=== PATIENT | female | born 1960 | race Caucasian/White ===

== ENCOUNTER 2016-06-11 15:56 | Inpatient (IN) ==
[2016-06-11 16:48] LABS: Basophils # 0.1 K/mcL (0.0-0.2); Basophils % 0.7 %; Eosinophils # 0.4 K/mcL (0.0-0.6); Eosinophils % 4.2 %; Hematocrit 39.7 % (35.3-44.9); Hemoglobin 13.4 g/dL (11.5-15.4); Immature Granulocytes % 0.3 % (0-4); Lymphocytes % 47.1 %; Mean Corpuscular HGB Conc 33.8 g/dL (31.6-35.5); Mean Corpuscular Hemoglobin 31.8 pg (28.0-33.3); Mean Corpuscular Volume 94.3 fL (83.0-100.0); Mean Platelet Volume 9.4 fL (9.4-12.4); Monocytes # 0.8 K/mcL (0.0-1.3); Monocytes % 7.1 %; Neutrophils # 4.3 K/mcL (1.6-8.9); Platelet Count 220 K/mcL (140-400); Red Blood Count 4.21 M/mcL (3.82-4.97); Red Cell Distribution Width 14.3 % (11.5-14.5); Segmented Neutrophils % 40.6 %
[2016-06-11 16:59] LABS: BUN/Creatinine Ratio 11 (6-26); Blood Urea Nitrogen 12 mg/dL (7-20); Calcium 9.5 mg/dL (8.6-10.8); Carbon Dioxide 26 mEq/L (19-29); Chloride 105 mEq/L (98-109); Glucose 82 mg/dL (70-99); Osmolality,Calculated 283 (280-300); Potassium 4.5 mEq/L (3.5-4.5); Sodium 137 mEq/L (136-145); eGFR For African Americans > 60 (> 60); eGFR For Non-African Americans 51 (> 60)
[2016-06-11] MEDS ORDERED: *HR* HYDROmorphone (PF) 1 MG/ML SYRINGE IVP ONE (17:01)
[2016-06-11] MEDS ORDERED: Ondansetron 4 MG/2 ML VIAL IVP ONE (17:01)
--- NOTE | 2016-06-11 17:01 | Emergency Department Note ---
Disposition Clinical Impression: Ischemia of left lower extremity Disposition: Admitted As Inpatient Condition: Good Time of Disposition: 18:00 Extremity Problem HPI - General Chief complaint: ED Extremity Problem,Nontraumatic Stated complaint: Left leg pain Time Seen by Provider: 06/11/16 16:27 Source: patient Limitations: no limitations Nursing Notes Reviewed: Yes Vital Signs Reviewed: Yes - History of Present Illness HPI Narrative: Patient is a 56-year-old female who presents to [facility] ED with a chief complaint of left lower extremity pain, weakness, numbness and now blue toes. States she has had a 3 day history of this worsening pain and numbness. States the toes just turned blue earlier today. She has had difficulty walking on her leg for last few days especially today. Past medical history significant for hypertension, COPD, renal disease, osteoarthritis, celiac disease. Patient states she has had some pain in her legs and was told she had decreased blood flow to her feet in the past. She was referred to a foot surgeon who told her to try orthotics. Pt Subjective Complaint: extremity pain, extremity swelling Onset (ago): day(s) Consistency: Worsening Injury Location: left, lower extremity Pain Scale: 10 Quality: aching Radiation: proximal Improves with: nothing Worsens with: range of motion, weight bearing, walking, palpation, rest Associated symptoms: Reports: change in appearance. Denies: chest pain, shortness of breath, abdominal pain, fever - Related Data Home Medications Medication Instructions Recorded Confirmed Albuterol Sulfate [Proair Hfa] 2 puff IH Q4-6H PRN 09/28/15 06/11/16 Acetaminophen/Diphenhydramine 2 each PO HS 06/11/16 06/11/16 [Acetaminophen Pm Caplet] Aclidinium [place] [Tudorza 400 mcg IH BID 06/11/16 06/11/16 Pressair] Budesonide/Formoterol 160/4.5 2 puff IH BIDR 06/11/16 06/11/16 [Symbicort 160/4.5] Calcium Carbonate/Vitamin D3 1 each PO BID 06/11/16 06/11/16 [Calcium 500-Vit D3 200 Tablet] Cholecalciferol (Vitamin D3) 5,000 unit PO DAILY 06/11/16 06/11/16 [Vitamin D3] Diclofenac Sodium [Voltaren] 1 appl TP QID PRN 06/11/16 06/11/16 Lisinopril 40 mg PO DAILY 06/11/16 06/11/16 Ranitidine HCl [Acid Fashion Intern] 150 mg PO BID 06/11/16 06/11/16 Varenicline Tartrate [Chantix] 1 mg PO BID 06/11/16 06/11/16 Previous Rx's Medication Instructions Recorded Aspirin [Lo-Dose Aspirin EC] 81 mg PO DAILY #30 tablet. 06/12/16 Clopidogrel Bisulfate [Plavix] 75 mg PO DAILY #30 tablet 06/12/16 Allergies Allergy/AdvReac Type Severity Reaction Status Date / Time acetaminophen [From [place]] AdvReac Nausea Verified 09/28/15 10:35 bupropion [From Wellbutrin] AdvReac Agitated Verified 09/28/15 10:35 hydrocodone [From [place]] AdvReac Nausea Verified 09/28/15 10:35 pregabalin [From Lyrica] AdvReac Nausea Verified 09/28/15 10:35 All systems ED: reviewed and negative except as stated. Past Medical History - Past Medical History Attestation: Yes The following information was validated with the patient. Source: patient Medical history: Reports: COPD, GERD, hypertension, renal disease, other Surgical history: Reports: hysterectomy, orthopedic, other Psychiatric history: Reports: no psych history [employer] history: Reports: bilateral tubal ligation - Social History Smoking Status: Current every day smoker Smokeless Tobacco Status: No Alcohol use: Reports: none Drug use: Reports: none Physical Exam - General Limitations: no limitations General appearance: alert - Head Head exam: atraumatic, normocephalic, normal inspection - Eye Eye exam: Present: normal appearance, PERRL, EOMI - ENT ENT exam: normal exam, normal oropharynx, mucous membranes moist - Neck Neck exam: Present: normal inspection, full ROM, trachea midline - Chest Chest inspection: Present: normal inspection, symmetric chest wall rise - Respiratory Respiratory exam: Present: normal lung sounds bilaterally - Cardiovascular Cardiovascular exam: Present: regular rate, normal rhythm, normal heart sounds - Abdominal Exam Abdominal exam: Present: soft, Non-Tender. Absent: tenderness, distention, guarding, rebound, rigidity - Expanded Lower Extremity Exam Hip/Pelvis exam: Present: tenderness Upper leg exam: Present: tenderness Lower leg exam: Present: tenderness Ankle exam: Present: tenderness Foot/toe exam: Present: tenderness, ecchymosis (1, 2, 3 digits) Gait: unable to bear weight - Back Exam Back exam: Present: normal inspection, full ROM. Absent: tenderness - Neurological Exam Neurological exam: Present: alert, oriented X3, CN II-XII intact - Psychiatric Psychiatric exam: Present: normal affect, normal mood - Skin Skin exam: Present: warm, dry, intact, normal color Course Course Narrative: Patient seen and examined. Left lower extremity pain that started 3 days ago. Noticed the blackness in her toes today. Denies any history of atrial fibrillation or prior blood clots. I am concerned about an ischemic foot. We will get ABIs. Patient only has one kidney so we will hold off on CTA of the leg. We will touch base with vascular surgery. Peripheral IV, 1 mg IV Dilaudid , [address] of the head also ordered to rule out any intracranial pathology to cause her left leg weakness. - Reevaluation(s) Reevaluation #1: CT and lab work unremarkable. SANDRO results showed decreased left (0.6) versus right. I spoke with vascular surgery Dr. Chakraborty who would like patient placed on a heparin drip. States order her some Mucomyst and will have her get a CTA of the left leg tomorrow morning. These have been ordered. Patient accepted by Dr. Chakraborty to the vascular surgery service. Time: 19:55 Vital Signs Temperature 97.5 F L 06/11/16 16:02 Pulse Rate 78 06/11/16 16:02 Respiratory Rate 16 06/11/16 16:02 Blood Pressure 157/86 06/11/16 16:02 O2 Sat by Pulse Oximetry 97 06/11/16 16:02 Temperature 97.8 F 06/12/16 11:10 Pulse Rate 78 06/12/16 11:10 Respiratory Rate 16 06/12/16 11:10 Blood Pressure 117/95 06/12/16 11:10 O2 Sat by Pulse Oximetry 94 L 06/12/16 11:10 Oxygen Delivery Oxygen Delivery Nasal Cannula Extremity Problem, Nontraumati - Medical Records Medical records reviewed: Yes I reviewed the patient's medical records. - Lab Data Lab results reviewed: Yes I reviewed the patient's lab results. Result diagrams: 06/12/16 01:21 03/14/17 16:40 Lab Results 06/11/16 06/11/16 06/11/16 Range/Units 16:40 16:40 16:40 WBC 10.6 (4.3-11.1) K/mcL RBC 4.21 (3.82-4.97) M/mcL Hgb 13.4 (11.5-15.4) g/dL Hct 39.7 (35.3-44.9) % MCV 94.3 (83.0-100.0) fL MCH 31.8 (28.0-33.3) pg MCHC 33.8 (31.6-35.5) g/dL RDW 14.3 (11.5-14.5) % Plt Count 220 (140-400) K/mcL MPV 9.4 (9.4-12.4) fL Immature Gran % 0.3 (0-4) % Seg Neutrophils % 40.6 % Lymphocytes % 47.1 % Monocytes % 7.1 % Eosinophils % 4.2 % Basophils % 0.7 % Neutrophils # 4.3 (1.6-8.9) K/mcL Lymphocytes # 5.0 H (0.6-4.6) K/mcL Monocytes # 0.8 (0.0-1.3) K/mcL Eosinophils # 0.4 (0.0-0.6) K/mcL Basophils # 0.1 (0.0-0.2) K/mcL PT (9.4-12.1) Seconds INR APTT (26.0-36.0) Seconds Sodium 137 (136-145) mEq/L Potassium 4.5 (3.5-4.5) mEq/L Chloride 105 (98-109) mEq/L Carbon Dioxide 26 (19-29) mEq/L BUN 12 (7-20) mg/dL Creatinine 1.11 (0.57-1.11) mg/dL Est GFR ( Amer) > 60 (> 60) Est GFR (Non-Af Amer) 51 L (> 60) BUN/Creatinine Ratio 11 (6-26) Glucose 82 (70-99) mg/dL Calculated Osmolality 283 (280-300) Lactic Acid 0.9 (0.5-2.2) mmol/L Calcium 9.5 (8.6-10.8) mg/dL Creatine Kinase (29-168) Units/L 06/11/16 06/11/16 Range/Units 16:40 16:40 WBC (4.3-11.1) K/mcL RBC (3.82-4.97) M/mcL Hgb (11.5-15.4) g/dL Hct (35.3-44.9) % MCV (83.0-100.0) fL MCH (28.0-33.3) pg MCHC (31.6-35.5) g/dL RDW (11.5-14.5) % Plt Count (140-400) K/mcL MPV (9.4-12.4) fL Immature Gran % (0-4) % Seg Neutrophils % % Lymphocytes % % Monocytes % % Eosinophils % % Basophils % % Neutrophils # (1.6-8.9) K/mcL Lymphocytes # (0.6-4.6) K/mcL Monocytes # (0.0-1.3) K/mcL Eosinophils # (0.0-0.6) K/mcL Basophils # (0.0-0.2) K/mcL PT 10.1 (9.4-12.1) Seconds INR 0.9 APTT 35.5 (26.0-36.0) Seconds Sodium (136-145) mEq/L Potassium (3.5-4.5) mEq/L Chloride (98-109) mEq/L Carbon Dioxide (19-29) mEq/L BUN (7-20) mg/dL Creatinine (0.57-1.11) mg/dL Est GFR ( Amer) (> 60) Est GFR (Non-Af Amer) (> 60) BUN/Creatinine Ratio (6-26) Glucose (70-99) mg/dL Calculated Osmolality (280-300) Lactic Acid (0.5-2.2) mmol/L Calcium (8.6-10.8) mg/dL Creatine Kinase 51 (29-168) Units/L - Radiology Data Radiology results reviewed: Yes I reviewed the patient's radiology results. Head CT 06/11/16 17:35 IMPRESSION: 1. No gross evidence of acute intracranial abnormality. 2. Mild scattered atherosclerosis. D/ / Riley Lugo MD / Riley Lugo MD Interpreting Provider: Riley Lugo MD Attestation Statement - Attestation Attestation: I examined this patient and my medical decision-making was reviewed with the SU[employer]OR [employer]MENT/PA/Advanced Practice Nurse/Resident Physician. I agree with the documented findings, disposition and treatment plan as described except to the extent set forth below. 56 yo female presents with L leg pain. Pt states she has a long history of pain in L lower extremity and is unable to ambulate without significant pain in the leg which improves with rest. Pt states three days ago she developed acute worsening of the pain. She reports he foot and LLE were cold, extremely painful , turned colors. Now she reports she has lost strength in the LLE and is unable to ambulate. Today she noted the toes of her L foot have turned colors. Pt has a single kidney. SANDRO performed bilaterally which did not reveal evidence of a significant difference bilaterally. Vascular surgeon, Dr. Chakraborty, contacted by resident who recommended placing patient on heparin, hydrating, and planning for CTA in the AM.
[2016-06-11] MEDS ORDERED: *HR* Heparin 5,000 UNIT/ML VIAL IVP PRN ×2 (18:01)
[2016-06-11] MEDS ORDERED: *HR* Heparin 5,000 UNIT/ML VIAL IVP ONE (18:01)
[2016-06-11 18:22] LABS: INR 0.9; Prothrombin Time 10.1 Seconds (9.4-12.1)
[2016-06-11 18:25] LABS: Activated Partial Thrombo Time 35.5 Seconds (26.0-36.0)
[2016-06-11] MEDS: Heparin 25,000 UNIT/500 ML D5W 25,000 UNIT/500 ML MLS IVC SCH (18:30)
[2016-06-11] MEDS ORDERED: *HR* Acetylcysteine 20% 600 MG/3 ML ORAL SYRINGE PO SCH (21:00)
[2016-06-11] MEDS: *HR* OxyCODONE/APAP 10/325 TABLET PO PRN (21:57)
[2016-06-11] MEDS: Famotidine 20 MG TABLET PO SCH (21:57)
[2016-06-11] MEDS: 0.9 % Sodium Chloride 1,000 ML IVC SCH (21:58)
[2016-06-11] MEDS: Ipratropium/Albuterol Neb 3 ML IH SCH (22:51)
[2016-06-11] MEDS: *HR* Acetylcysteine 20% 600 MG/3 ML ORAL SYRINGE PO SCH (23:17)
[2016-06-11] MEDS: *HR* HYDROmorphone (PF) 1 MG/ML SYRINGE IVP PRN (23:17)
[2016-06-12 01:53] LABS: Basophils # 0.1 K/mcL (0.0-0.2); Basophils % 0.7 %; Eosinophils # 0.5 K/mcL (0.0-0.6); Eosinophils % 4.2 %; Hematocrit 40.7 % (35.3-44.9); Hemoglobin 12.9 g/dL (11.5-15.4); Immature Granulocytes % 0.2 % (0-4); Lymphocytes # 5.6 K/mcL (0.6-4.6); Lymphocytes % 50.5 %; Mean Corpuscular HGB Conc 31.7 g/dL (31.6-35.5); Mean Corpuscular Hemoglobin 30.4 pg (28.0-33.3); Mean Corpuscular Volume 95.8 fL (83.0-100.0); Mean Platelet Volume 9.5 fL (9.4-12.4); Monocytes # 0.9 K/mcL (0.0-1.3); Monocytes % 7.9 %; Platelet Count 207 K/mcL (140-400); Red Blood Count 4.25 M/mcL (3.82-4.97); Red Cell Distribution Width 14.4 % (11.5-14.5); Segmented Neutrophils % 36.5 %
[2016-06-12] MEDS: Ipratropium/Albuterol Neb 3 ML IH SCH ×2 (03:45→10:10)
[2016-06-12] MEDS: *HR* HYDROmorphone (PF) 1 MG/ML SYRINGE IVP PRN ×2 (03:54→06:53)
[2016-06-12] MEDS: *HR* OxyCODONE/APAP 10/325 TABLET PO PRN (03:57)
[2016-06-12] MEDS: Famotidine 20 MG TABLET PO SCH (07:38)
[2016-06-12] MEDS ORDERED: Lisinopril 20 MG TABLET PO SCH (09:00)
--- NOTE | 2016-06-12 09:06 | Electrocardiograph Report ---
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
[2016-06-12] MEDS ORDERED: Ondansetron 4 MG/2 ML VIAL IVP PRN (09:42)
[2016-06-12] MEDS: *HR* Acetylcysteine 20% 600 MG/3 ML ORAL SYRINGE PO SCH (09:53)
--- NOTE | 2016-06-12 10:27 | General Surg History&Physical ---
Date of Encounter: 06/12/16 Time of Encounter: 10:27 Assessment and Plan (1) Ischemia of left lower extremity Current Visit: Yes Status: Acute The assessment and plan as outlined above was discussed with the patient and/or family members who expressed understanding and agreement. All questions were answered. Etiology unclear at this time. Acute color change of toes of left foot -- purple in color -- with increased pain/tingling/numbness 2+ year history of left leg pain. Possible embolic event vs. small vessel disease vs other etiology CTA Aorta w/runoff: pending Will pre-treat with mucomyst as she has a solitary kidney Therapeutic heparin drip IVF NS @ 75ml/hr anti-emetics Pain control w/ oxycodone 10mg PRN q6h GI prophylaxis w/ famotidine (2) CKD (chronic kidney disease), stage III Current Visit: Yes Status: Acute History of CKD. Solitary Kidney. Baseline GFR from medical records appears to be 30-40. GFR is 51 today Scr: is 1.11 Continue IV fluid hydration Monitor I/O and renal function (3) COPD (chronic obstructive pulmonary disease) Current Visit: No Status: Chronic Supplemental O2 as needed DuoNebs Qualifiers: COPD type: unspecified COPD Qualified Code(s): J44.9 - Chronic obstructive pulmonary disease, unspecified (4) HTN (hypertension) Current Visit: No Status: Chronic Continue home meds Lisinopril 40mg qday Qualifiers: Hypertension type: essential hypertension Qualified Code(s): I10 - Essential (primary) hypertension (5) Solitary kidney, acquired Current Visit: No Status: Chronic The assessment and plan as outlined above was discussed with the patient and/or family members who expressed understanding and agreement. All questions were answered. History of Present Illness Chief complaint: left foot pain HPI: Patient is a 56-year-old female who presented to [facility] ED with a chief complaint of left lower extremity pain, weakness, numbness and purple toes. Past medical history significant for hypertension, COPD (on 2L O2 at home PRN), renal disease, osteoarthritis, celiac disease. Her left foot has been causing her pain for the past 2 years. Pain is described as throbbing, intermittently. It is worse when standing or ambulating. She states the pain involves her entire left leg. She has cramping pains nightly in her left leg. She has had a 3 day history of acute worsening of pain and numbness in her left foot. States the toes just turned purple 06/11/16. She has had increased difficulty ambulating. She was referred to a foot surgeon who told her to try orthotics. She reports hot flashes, diaphoresis, chills, fatigue, constipation. She denies N/V/D, chest pain, sob. Past Med Surg Social Fam HX - Past Medical History Medical history: arthritis, COPD, GERD, hypertension, renal disease, other Psychiatric history: no psych history - Past Surgical History Surgical History: hysterectomy, orthopedic, other - Social History Smoking Status: Current every day smoker Packs per day: 0.5 Smokeless Tobacco Status: No Alcohol use: none Drug use: none - Family History Father Living Status: Still Living Hx Family Cancer: Yes Hx Family Endocrine Disorder: Yes Mother Living Status: Still Living Hx Family Cardiac Disorders: Yes Hx Family Cancer: Yes Medications and Allergies Albuterol Sulfate [Proair Hfa] 2 puff IH Q4-6H PRN 09/28/15 [History] Acetaminophen/Diphenhydramine [Acetaminophen Pm Caplet] 2 each PO HS 06/11/16 [ History] Aclidinium [place] [Tudorza Pressair] 400 mcg IH BID 06/11/16 [History] Budesonide/Formoterol 160/4.5 [Symbicort 160/4.5] 2 puff IH BIDR 06/11/16 [ History] Calcium Carbonate/Vitamin D3 [Calcium 500-Vit D3 200 Tablet] 1 each PO BID 06/11 [History] Cholecalciferol (Vitamin D3) [Vitamin D3] 5,000 unit PO DAILY 06/11/16 [History] Diclofenac Sodium [Voltaren] 1 appl TP QID PRN 06/11/16 [History] Lisinopril [Lisinopril] 40 mg PO DAILY 06/11/16 [History] Ranitidine HCl [Acid Power Brake Rebuilder] 150 mg PO BID 06/11/16 [History] Varenicline Tartrate [Chantix] 1 mg PO BID 06/11/16 [History] Allergies acetaminophen [From [place]] Adverse Reaction (Verified 09/28/15 10:35) Nausea bupropion [From Wellbutrin] Adverse Reaction (Verified 09/28/15 10:35) Agitated hydrocodone [From [place]] Adverse Reaction (Verified 09/28/15 10:35) Nausea pregabalin [From Lyrica] Adverse Reaction (Verified 09/28/15 10:35) Nausea Review of Systems All systems PM: A 10-system review of systems was performed and is negative for pertinent findings except as documented above in the HPI. - Constitutional chills, fatigue - Cardiovascular acrocyanosis (left foot), claudication, diaphoresis, lightheadedness, no chest pain at rest, no edema, no leg edema - Respiratory no cough, no dyspnea - Gastrointestinal constipation (chronic), no abdominal pain, no cramping, no diarrhea - Musculoskeletal muscle cramps, numbness, tingling left: foot pain - Integumentary dry skin, no rash - Neurological tingling, no confusion, no convulsions, no syncope General Surgery Exam Initial Vital Signs Temp Pulse Resp BP Pulse Ox 97.5 F L 78 16 157/86 97 06/11/16 16:02 06/11/16 16:02 06/11/16 16:02 06/11/16 16:02 06/11/16 16:02 - General physical appearance well developed, well nourished, moderate pain - Eyes normal ocular movement - ENT normal mucosa - Respiratory normal respiratory effort wheezing: bilateral (and rhonchi) - Cardiovascular Cardiovascular exam: Present: RRR. Absent: murmurs, clicks, rubs, gallop - Abdomen Abdomen general surgery: Present: bowel sounds present, soft, non tender - Integumentary Integumentary general surgery: Present: warm and dry. Absent: no abnormal pigmentation (left foot/ toes purple) - Neurologic Present: CN 2-12 grossly intact. Absent: normal sensation (decreased sensation left foot) - Psychiatric Psychiatric general surgery: Present: A&Ox3, appropriate Results - Labs 06/12/16 01:21 06/11/16 16:40 Abnormal lab results Lymphocytes # 5.6 K/mcL (0.6-4.6) H 06/12/16 01:21 APTT 49.0 Seconds (26.0-36.0) H D 06/12/16 09:26 Est GFR (Non-Af Amer) 51 (> 60) L 06/11/16 16:40 All other labs normal.
[2016-06-12] MEDS: 0.9 % Sodium Chloride 1,000 ML IVC SCH (10:31)
[2016-06-12] MEDS: Heparin 25,000 UNIT/500 ML D5W 25,000 UNIT/500 ML MLS IVC SCH (11:07)
[2016-06-12 11:12] VITALS: BP 117/95
--- NOTE | 2016-06-12 11:47 | Vascular/Endovascular H&P ---
<AmatoBello Choco - Last Filed: 06/12/16 11:45> Date of Encounter: 06/12/16 Time of Encounter: 11:45 Assessment and Plan (1) Ischemia of left lower extremity Current Visit: Yes Status: Acute The assessment and plan as outlined above was discussed with the patient and/or family members who expressed understanding and agreement. All questions were answered. Etiology unclear at this time. Acute color change of toes of left foot -- purple in color -- with increased pain/tingling/numbness 2+ year history of left leg pain. Possible embolic event vs. small vessel disease vs other etiology CTA Aorta w/runoff: pending Will pre-treat with mucomyst as she has a solitary kidney Therapeutic heparin drip IVF NS @ 75ml/hr anti-emetics Pain control w/ oxycodone 10mg PRN q6h GI prophylaxis w/ famotidine DVT prophylaxis: on heparin drip (2) CKD (chronic kidney disease), stage III Current Visit: Yes Status: Chronic History of CKD. Solitary Kidney. Baseline GFR from medical records appears to be 30-40. GFR is 51 today Scr: is 1.11 Continue IV fluid hydration Monitor I/O and renal function (3) COPD (chronic obstructive pulmonary disease) Current Visit: No Status: Chronic Supplemental O2 as needed DuoNebs Qualifiers: COPD type: unspecified COPD Qualified Code(s): J44.9 - Chronic obstructive pulmonary disease, unspecified (4) HTN (hypertension) Current Visit: No Status: Chronic Continue home meds Lisinopril 40mg qday Qualifiers: Hypertension type: essential hypertension Qualified Code(s): I10 - Essential (primary) hypertension (5) Solitary kidney, acquired Current Visit: No Status: Chronic History of Present Illness Chief complaint: left foot pain HPI: Patient is a 56-year-old female who presented to [facility] ED with a chief complaint of left lower extremity pain, weakness, numbness and purple toes. Past medical history significant for hypertension, COPD (on 2L O2 at home PRN), renal disease, osteoarthritis, celiac disease. Her left foot has been causing her pain for the past 2 years. Pain is described as throbbing, intermittently. It is worse when standing or ambulating. She states the pain involves her entire left leg. She has cramping pains nightly in her left leg. She has had a 3 day history of acute worsening of pain and numbness in her left foot. States the toes just turned purple 06/11/16. She has had increased difficulty ambulating. She was referred to a foot surgeon who told her to try orthotics. She reports hot flashes, diaphoresis, chills, fatigue, constipation. She denies N/V/D, chest pain, sob. Past Med Surg Social Fam HX - Past Medical History Medical history: arthritis, COPD, GERD, hypertension, renal disease, other Psychiatric history: no psych history - Past Surgical History Surgical History: hysterectomy, orthopedic, other - Social History Smoking Status: Current every day smoker Packs per day: 0.5 Smokeless Tobacco Status: No Alcohol use: none Drug use: none - Family History Father Living Status: Still Living Hx Family Cancer: Yes Hx Family Endocrine Disorder: Yes Mother Living Status: Still Living Hx Family Cardiac Disorders: Yes Hx Family Cancer: Yes Medications and Allergies Albuterol Sulfate [Proair Hfa] 2 puff IH Q4-6H PRN 09/28/15 [History] Acetaminophen/Diphenhydramine [Acetaminophen Pm Caplet] 2 each PO HS 06/11/16 [ History] Aclidinium [place] [Tudorza Pressair] 400 mcg IH BID 06/11/16 [History] Budesonide/Formoterol 160/4.5 [Symbicort 160/4.5] 2 puff IH BIDR 06/11/16 [ History] Calcium Carbonate/Vitamin D3 [Calcium 500-Vit D3 200 Tablet] 1 each PO BID 06/11 [History] Cholecalciferol (Vitamin D3) [Vitamin D3] 5,000 unit PO DAILY 06/11/16 [History] Diclofenac Sodium [Voltaren] 1 appl TP QID PRN 06/11/16 [History] Lisinopril [Lisinopril] 40 mg PO DAILY 06/11/16 [History] Ranitidine HCl [Acid Sofa Back Upholsterer] 150 mg PO BID 06/11/16 [History] Varenicline Tartrate [Chantix] 1 mg PO BID 06/11/16 [History] Allergies acetaminophen [From [place]] Adverse Reaction (Verified 09/28/15 10:35) Nausea bupropion [From Wellbutrin] Adverse Reaction (Verified 06/30/16 10:35) Agitated hydrocodone [From [place]] Adverse Reaction (Verified 09/28/15 10:35) Nausea pregabalin [From [place]] Adverse Reaction (Verified 09/28/15 10:35) Nausea All Systems Review: A 10-system review of systems was performed and is negative for pertinent findings except as documented above in the HPI. Review of Systems: - Constitutional chills, fatigue - Cardiovascular acrocyanosis (left foot), claudication, diaphoresis, lightheadedness, no chest pain at rest, no edema, no leg edema - Respiratory no cough, no dyspnea - Gastrointestinal constipation (chronic), no abdominal pain, no cramping, no diarrhea - Musculoskeletal muscle cramps, numbness, tingling left: foot pain - Integumentary dry skin, no rash - Neurological tingling, no confusion, no convulsions, no syncope Exam Vital Signs, Last 4 Hours Temp Pulse Resp BP Pulse Ox 06/12/16 11:10 97.8 F 75 16 117/95 94 L Exam: - General physical appearance well developed, well nourished, moderate pain - Eyes normal ocular movement - ENT normal mucosa - Respiratory normal respiratory effort wheezing: bilateral (and rhonchi) - Cardiovascular Cardiovascular exam: Present: RRR. Absent: murmurs, clicks, rubs, gallop - Abdomen Abdomen general surgery: Present: bowel sounds present, soft, non tender - Integumentary Integumentary general surgery: Present: warm and dry. Absent: no abnormal pigmentation (left foot/ toes purple) - Neurologic Present: CN 2-12 grossly intact. Absent: normal sensation (decreased sensation left foot) - Psychiatric Psychiatric general surgery: Present: A&Ox3, appropriate Results 06/12/16 01:21 06/11/16 16:40 Lab Results, Last 24 hours 06/12/16 06/12/16 06/12/16 01:21 01:21 09:26 WBC 11.1 Hgb 12.9 Hct 40.7 Plt Count 207 APTT 98.9 H D 49.0 H D <Julio Chakraborty - Last Filed: 06/12/16 13:54> History of Present Illness HPI: Ms. Garcia is a 56 year old female All Systems Review: A 10-system review of systems was performed and is negative for pertinent findings except as documented above in the HPI. Exam Vital Signs, Last 4 Hours Temp Pulse Resp BP Pulse Ox 06/12/16 11:10 97.8 F 75 16 117/95 94 L Results 06/12/16 01:21 06/11/16 16:40 Lab Results, Last 24 hours 06/12/16 06/12/16 06/12/16 01:21 01:21 09:26 WBC 11.1 Hgb 12.9 Hct 40.7 Plt Count 207 APTT 98.9 H D 49.0 H D - Attending Attestation The patient was seen and evaluated on morning rounds. Her ankle-brachial index 0.67 on the left. Her first and fourth toe or discolored and dark. I think a CTA aortogram with runoff is imperative in her workup. I initially saw the patient this morning at 7 AM and I saw the patient after her CTA aortogram with runoff. The CTA fails to demonstrate any areas of clinically significant stenosis in the aorta iliac or femoral system above the area of discolored toes. She has 2 vessel runoff. At this point there are no identifiable lesions for embolization or stenosis or occlusion. There is no indication for weight dosed heparin. I will discontinue her weight does heparin and start her on aspirin and Plavix. She can be discharged and follow-up with her primary care doctor. Julio Chakraborty MD FACS
--- NOTE | 2016-06-12 14:03 | Discharge Summary ---
<Lizeth Gudino - Last Filed: 06/12/16 14:06> Date of Encounter: 06/12/16 Time of Encounter: 14:00 - Discharge Diagnosis (1) Ischemia of left lower extremity Priority: Primary Status: Acute (2) CKD (chronic kidney disease), stage III Priority: Secondary Status: Chronic (3) COPD (chronic obstructive pulmonary disease) Priority: Secondary Status: Chronic Qualifiers: COPD type: unspecified COPD Qualified Code(s): J44.9 - Chronic obstructive pulmonary disease, unspecified (4) HTN (hypertension) Priority: Secondary Status: Chronic Qualifiers: Hypertension type: essential hypertension Qualified Code(s): I10 - Essential (primary) hypertension (5) Solitary kidney, acquired Priority: Secondary Status: Chronic - Discharge Medications Prescriptions: Aspirin [Lo-Dose Aspirin EC] 81 mg PO DAILY #30 tablet. Clopidogrel Bisulfate [Plavix] 75 mg PO DAILY #30 tablet Home Medications: Albuterol Sulfate [Proair Hfa] 2 puff IH Q4-6H PRN 09/28/15 [History] Acetaminophen/Diphenhydramine [Acetaminophen Pm Caplet] 2 each PO HS 06/11/16 [ History] Aclidinium [place] [Tudorza Pressair] 400 mcg IH BID 06/11/16 [History] Budesonide/Formoterol 160/4.5 [Symbicort 160/4.5] 2 puff IH BIDR 06/11/16 [ History] Calcium Carbonate/Vitamin D3 [Calcium 500-Vit D3 200 Tablet] 1 each PO BID 06/11 [History] Cholecalciferol (Vitamin D3) [Vitamin D3] 5,000 unit PO DAILY 06/11/16 [History] Diclofenac Sodium [Voltaren] 1 appl TP QID PRN 06/11/16 [History] Lisinopril 40 mg PO DAILY 06/11/16 [History] Ranitidine HCl [Acid Information Receptionist] 150 mg PO BID 06/11/16 [History] Varenicline Tartrate [Chantix] 1 mg PO BID 06/11/16 [History] Aspirin [Lo-Dose Aspirin EC] 81 mg PO DAILY #30 tablet. 06/12/16 [Rx] Clopidogrel Bisulfate [Plavix] 75 mg PO DAILY #30 tablet 06/12/16 [Rx] Allergies/Adverse Reactions: Allergies acetaminophen [From Senatobia] Adverse Reaction (Verified 09/28/15 10:35) Nausea bupropion [From Wellbutrin] Adverse Reaction (Verified 09/28/15 10:35) Agitated hydrocodone [From [place]] Adverse Reaction (Verified 09/28/15 10:35) Nausea pregabalin [From Lyrica] Adverse Reaction (Verified 09/28/15 10:35) Nausea Date of admission: 06/12/16 00:13 Primary care physician: Daniel Malin MD Discharging clinician: Julio Chakraborty ([facility]) Anticipated date of discharge: 06/12/16 - Patient Status Disposition: Home, Self-Care Condition: Good Functional capacity at discharge: independent ambulation Overall status at discharge: patient is progressing back to baseline - Discharge Instructions Instructions: Aspirin (By mouth), Clopidogrel (By mouth), How to Stop Smoking ( GEN), Cigarette Smoking and Your Health (GEN) Follow Up With: Julio Chakraborty MD [Partnered Physician] - (may follow-up as needed; no hospital follow-up indicated) Daniel Malin MD [Primary Care Provider] - 06/19/16 3:15 pm - Diet and Activity Activity: increase activity as tolerated Diet: advance to your usual diet - Hospital Course Hospital course: Ms. Garcia is a 56 year old female presented to the hospital for complaints of LLE pain. She was placed on supportive measures as well as a heparin gtt. She did have a CTA with runoff complete. Testing shows now evidence of occlusion. Will recommend smoking cessation and start plavis and ASA daily. Patient has no indication for vascular intervention at this time. May follow-up with Dr. Chakraborty as needed. Follow-up with PCP for management. Patient also follows with Dr. Yoo and may continue to follow as needed. - Time Spent with Patient Total time spent providing and/or coordinating discharge services: Less than 30 minutes Exam Vital Signs, Last 4 Hours Temp Pulse Resp BP Pulse Ox 06/12/16 11:10 97.8 F 75 16 117/95 94 L General: Present: No Apparent Distress HEENT: Present: Trachea midline, Pupils equal Cardiac: Present: Reg Rate and Rhythm Lungs: Present: Normal Breath Sounds, No Wheeze, Rales, Rhonchi Neuro: Present: Alert and responsive, No focal deficits noted Abdomen: Present: Soft, Non-tender Vascular: Present: Cyanosis (left foot/toes) Skin: Present: No rashes noted on visualized skin Musculoskeletal: Present: No Chest Wall Tenderness - Attending Attestation I examined this patient and my medical decision-making was reviewed with the STATIONS SUPERINTENDENT/PA/Advanced Practice Nurse/Resident Physician. I agree with the documented findings, disposition and treatment plan as described except to the extent set forth below. <Julio Chakraborty - Last Filed: 06/13/16 16:49> Date of admission: 06/12/16 00:13 Primary care physician: Daniel Malin MD - Hospital Course Hospital course: Ms. Garcia is a 56 year old female - Time Spent with Patient Total time spent providing and/or coordinating discharge services: - Attending Attestation The patient is seen and examined. No hemodynamically significant lesions were identified on aortogram with runoff. Weight dose heparin discontinued. The patient was counselled on smoking cessation and started on asprin and plavix. No vascular lesions identified. I discussed this with the patient Julio Chakraborty MD FACS
--- NOTE | 2016-06-12 14:41 | Arterial Study Report ---
LE Arterial Physiologic Study Patient Name:Lorna Garcia Order Number:[id number] Procedure Date:06/11/2016 Date:1960ge:56 yrs Gender:Female Lt BP:162 / mmHg Rt.BP:135 / mmHgHeart Rate: Location:[facility] ED Room #: ER3 Physical Security Manager:Sylvia Rodriguez Referring MD:Fariha Meyers DO nnp:Daniel Malin MD Reading MD:Julio Chakraborty MD Primary Indications:pain, ischemis toes Impressions: 1) Right lower extremity waveform demonstrates mildly diminished hemodynamics. 2) Right Ankle Brachial Index demonstrates mildly occlusive disease. 1) Left lower extremity waveform demonstrates moderately diminished hemodynamics. 2) Left Ankle Brachial Index demonstrates moderately occlusive disease. Recommendations: After imaging the patient returned to their room. Test completed on 06/11/2016 at 5:15:00 pm. Critical findings reported to Dr Amin in emergency department in person at 5:20:00 pm on 06/11/2016 by Sylvia Rodriguez. Findings LE Arterial Physiologic Exam: PVR: Right: The PVR waveforms are mildly diminished in the right ankle. Left: The PVR waveforms are moderately diminished in the left ankle. Prior Study: No prior study available for comparison. Segmental Pressures Side Location Pressure Index Result Right Posterior Tibial 150 0.93 Right Dorsalis Pedis 152 0.94 Left Posterior Tibial 126 0.78 Left Dorsalis Pedis 109 0.67 Ankle Brachial Index Right Systolic Diastolic SANDRO Brachial 135 0.94 Dorsalis Pedis 152 0.94 Posterior Tibial 150 0.93 Left Systolic Diastolic SANDRO Brachial 162 0.78 Dorsalis Pedis 109 0.67 Posterior Tibial 126 0.78 Updated by Julio Chakraborty MD on 06/12/2016 2:34:23 PM with Status of Final electronically signed on 06/12/2016 2:34:37 PM with status of Final
[2016-06-13] MEDS ORDERED: Aspirin 81 MG TAB.CHEW PO SCH (09:00)
== END 2016-06-12 15:05 | disposition home or self-care (01) | DRG 197 ==
LOC: 2NNU 15:56 → EMEROO 15:56 → 2NNU 19:45
PROVIDERS: ADMIT Surgery; ATTEND Surgery

== ENCOUNTER 2017-03-13 19:50 | Observation (INO) ==
[2017-03-13] MEDS ORDERED: predniSONE 20 MG TABLET PO ONE (19:54)
[2017-03-13] MEDS ORDERED: Ipratropium/Albuterol Neb 3 ML IH ONE (19:54)
--- NOTE | 2017-03-13 19:57 | Emergency Department Note ---
Disposition Clinical Impression: Acute exacerbation of chronic obstructive airways disease [id number] kidney injury Qualifiers: Acute renal failure type: unspecified Chronic kidney disease stage: unspecified stage Qualified Code(s): N17.9 - Acute kidney failure, unspecified; N18.9 - Chronic kidney disease, unspecified; N18.9 - Chronic kidney disease, unspecified Headache Qualifiers: Headache type: unspecified Headache chronicity pattern: chronic headache Intractability: not intractable Qualified Code(s): R51 - Headache Disposition: Admitted As Inpatient Condition: Undetermined Forms: ED Satisfaction Letter Time of Disposition: 21:08 SOB HPI - General Chief Complaint: ED Shortness of Breath/Dyspnea Stated Complaint: shortness of breath Time Seen by Provider: 03/13/17 19:53 Source: patient Mode of arrival: EMS Limitations: no limitations Nursing Notes Reviewed: Yes Vital Signs Reviewed: Yes - History of Present Illness 57-year-old female with history of COPD on chronic home oxygen at night at 2 L, arrives to [facility] emergency department with generalized weakness. Patient states that she has felt short of breath with some heart palpitations as well. The patient states this is been ongoing the past few days. She denies any fevers, chills, abdominal pain, unilateral leg swelling, recent surgeries, recent immobilizations. The patient states that since September she has had intermittent headaches as well. The patient denies any change in her headache today. She denies any other complaints at this time. She is resting comfortably in the room. The patient was not wearing oxygen upon arrival from EMS. Pt Subjective Complaint: shortness of breath Severity: mild Consistency/Duration: constant Improves with: nothing Worsens with: nothing Known history of: COPD Associated symptoms: Reports: denies other symptoms Treatment prior to arrival: oxygen, bronchodilator Cough present: No Sputum production: No Sputum Amount: None - Related Data Home oxygen amount: 2 liters Home Medications Medication Instructions Recorded Confirmed Albuterol Sulfate [Proair Hfa] 2 puff IH Q4-6H PRN 09/28/15 06/11/16 Acetaminophen/Diphenhydramine 2 each PO HS 06/11/16 06/11/16 [Acetaminophen Pm Caplet] Aclidinium [place] [Tudorza 400 mcg IH BID 06/11/16 06/11/16 Pressair] Budesonide/Formoterol 160/4.5 2 puff IH BIDR 06/11/16 06/11/16 [Symbicort 160/4.5] Calcium Carbonate/Vitamin D3 1 each PO BID 06/11/16 06/11/16 [Calcium 500-Vit D3 200 Tablet] Cholecalciferol (Vitamin D3) 5,000 unit PO DAILY 06/11/16 06/11/16 [Vitamin D3] Diclofenac Sodium [Voltaren] 1 appl TP QID PRN 06/11/16 06/11/16 Lisinopril 40 mg PO DAILY 06/11/16 06/11/16 Ranitidine HCl [Acid Library Clerk] 150 mg PO BID 06/11/16 06/11/16 Varenicline Tartrate [Chantix 1 mg PO BID 06/11/16 06/11/16 Starting Month ABELINO] Previous Rx's Medication Instructions Recorded Aspirin [Lo-Dose Aspirin EC] 81 mg PO DAILY #30 tablet. 06/12/16 Clopidogrel Bisulfate [Plavix] 75 mg PO DAILY #30 tablet 06/12/16 Clindamycin HCl 300 mg PO TID #30 capsule 11/13/16 Fluticasone Propionate Nasal 120 spray NS DAILY #1 bottle 11/13/16 [Flonase] Allergies Allergy/AdvReac Type Severity Reaction Status Date / Time acetaminophen [From Harvey] AdvReac Nausea Verified 11/13/16 12:11 bupropion [From Wellbutrin] AdvReac Agitated Verified 11/13/16 12:11 hydrocodone [From Harvey] AdvReac Nausea Verified 11/13/16 12:11 pregabalin [From Lyrica] AdvReac Nausea Verified 11/13/16 12:11 All systems ED: reviewed and negative except as stated. Constitutional: Reports: weakness. Denies: fever, chills ENT ED: Denies: congestion Cardiovascular: Reports: chest pain, palpitations, dyspnea on exertion. Denies : edema, syncope Respiratory: Reports: dyspnea. Denies: cough, wheezes, hemoptysis, sputum production Gastrointestinal: Denies: abdominal pain, nausea, vomiting Genitourinary: Denies: urgency, dysuria Musculoskeletal: Denies: back pain, neck pain Integumentary: Denies: rash Neurological: Reports: headache, weakness. Denies: numbness, paresthesias, confusion, vertigo Past Medical History - Past Medical History Attestation: Yes The following information was validated with the patient. 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: bilateral tubal ligation - Social History Smoking Status: Current every day smoker Smokeless Tobacco Status: No Alcohol use: Reports: none Drug use: Reports: none Physical Exam - General Limitations: no limitations General appearance: alert, in no apparent distress - Head Head exam: atraumatic, normocephalic, normal inspection - Eye Eye exam: Present: normal appearance, PERRL, EOMI - ENT ENT exam: normal exam, normal oropharynx, mucous membranes moist - Neck Neck exam: Present: normal inspection, full ROM, trachea midline - Chest Chest inspection: Present: normal inspection, symmetric chest wall rise - Respiratory Respiratory exam: Present: wheezes (bilaterally). Absent: respiratory distress , accessory muscle use - Cardiovascular Cardiovascular exam: Present: regular rate, normal rhythm, normal heart sounds - Abdominal Exam Abdominal exam: Present: soft, Non-Tender. Absent: tenderness, distention, guarding, rebound, rigidity - Extremities Exam Extremities exam: Present: normal inspection, full ROM. Absent: tenderness, pedal edema Course Vital Signs Temperature 98.2 F 03/13/17 19:53 Pulse Rate 81 03/13/17 19:53 Respiratory Rate 12 03/13/17 19:53 Blood Pressure 106/62 03/13/17 19:53 O2 Sat by Pulse Oximetry 96 03/13/17 19:53 Temperature 98.2 F 03/13/17 19:53 Pulse Rate 84 03/13/17 20:00 Respiratory Rate 18 03/13/17 20:21 Blood Pressure 106/62 03/13/17 20:00 O2 Sat by Pulse Oximetry 97 03/13/17 20:21 Oxygen Delivery Oxygen Delivery Nasal Cannula Shortness of Breath/Dyspnea - MDM Narrative Medical decision making narrative: Patient's work-up in the ED demonstrates findings consistent with COPD exacerbation. The patient does have acute on chronic kidney disease. Her breathing improved with nebulizers. She is resting comfortably at this time with the exception of worsening headache. We obtained a CT of the head. We treated the headache. The patient also received fluids for TEZ. The patient will be admitted to the hospitalist at this time. The patient was accepted by Dr. Gupta. - Lab Data Lab results reviewed: Yes I reviewed the patient's lab results. Result diagrams: 03/13/17 20:23 03/13/17 20:23 Lab Results 03/13/17 03/13/17 03/13/17 Range/Units 20:01 20:05 20:23 WBC 10.1 (4.3-11.1) K/mcL RBC 3.71 L (3.82-4.97) M/mcL Hgb 11.2 L (11.5-15.4) g/dL Hct 35.6 (35.3-44.9) % MCV 96.0 (83.0-100.0) fL MCH 30.2 (28.0-33.3) pg MCHC 31.5 L (31.6-35.5) g/dL RDW 14.8 H (11.5-14.5) % Plt Count 242 (140-400) K/mcL MPV 9.2 L (9.4-12.4) fL Immature Gran % 0.3 (0-4) % Seg Neutrophils % 45.8 % Lymphocytes % 42.2 % Monocytes % 7.7 % Eosinophils % 3.2 % Basophils % 0.8 % Neutrophils # 4.6 (1.6-8.9) K/mcL Lymphocytes # 4.3 (0.6-4.6) K/mcL Monocytes # 0.8 (0.0-1.3) K/mcL Eosinophils # 0.3 (0.0-0.6) K/mcL Basophils # 0.1 (0.0-0.2) K/mcL Sodium (136-145) mEq/L Potassium (3.5-4.5) mEq/L Chloride (98-109) mEq/L Carbon Dioxide (19-29) mEq/L BUN (7-20) mg/dL Creatinine (0.57-1.11) mg/dL Est GFR ( Amer) (> 60) Est GFR (Non-Af Amer) (> 60) BUN/Creatinine Ratio (6-26) Glucose (70-99) mg/dL POC Glucose 82 (58-89) Calculated Osmolality (280-300) Lactic Acid (0.5-2.2) mmol/L Calcium (8.6-10.8) mg/dL Total Bilirubin (0.2-1.2) mg/dL Direct Bilirubin (0.0-0.5) mg/dL Indirect Bilirubin (0.0-1.2) mg/dL AST (5-34) Units/L ALT (0-55) Units/L Alkaline Phosphatase (38-126) Units/L Troponin I (0-0.03) ng/mL Serum Total Protein (6.0-8.3) g/dL Albumin (3.5-5.0) g/dL Globulin (2.4-3.5) g/dL Albumin/Globulin Ratio (1.1-2.2) Urine Color Yellow (Yellow) Urine Clarity Clear (Clear) Urine pH 6.0 (5.0-8.0) pH Units Ur Specific Garber 1.011 (1.010-1.025) Urine Protein Negative (Neg-Trace) mg/dL Urine Glucose (UA) Normal (Normal) mg/dL Urine Ketones Negative (Negative) mg/dL Urine Blood Negative (Negative) Urine Nitrite Negative (Negative) Urine Bilirubin Negative (Negative) Urine Urobilinogen Normal (Normal) mg/dL Ur Leukocyte Esterase Negative (Negative) Ur Culture Indicated? NO (NO) 03/13/17 03/13/17 03/13/17 Range/Units 20:23 20:23 20:23 WBC (4.3-11.1) K/mcL RBC (3.82-4.97) M/mcL Hgb (11.5-15.4) g/dL Hct (35.3-44.9) % MCV (83.0-100.0) fL MCH (28.0-33.3) pg MCHC (31.6-35.5) g/dL RDW (11.5-14.5) % Plt Count (140-400) K/mcL MPV (9.4-12.4) fL Immature Gran % (0-4) % Seg Neutrophils % % Lymphocytes % % Monocytes % % Eosinophils % % Basophils % % Neutrophils # (1.6-8.9) K/mcL Lymphocytes # (0.6-4.6) K/mcL Monocytes # (0.0-1.3) K/mcL Eosinophils # (0.0-0.6) K/mcL Basophils # (0.0-0.2) K/mcL Sodium 138 (136-145) mEq/L Potassium 4.4 (3.5-4.5) mEq/L Chloride 105 (98-109) mEq/L Carbon Dioxide 28 (19-29) mEq/L BUN 15 (7-20) mg/dL Creatinine 1.81 H (0.57-1.11) mg/dL Est GFR ( Amer) 35 L (> 60) Est GFR (Non-Af Amer) 29 L (> 60) BUN/Creatinine Ratio 8 (6-26) Glucose 89 (70-99) mg/dL POC Glucose (58-89) Calculated Osmolality 286 (280-300) Lactic Acid 1.4 (0.5-2.2) mmol/L Calcium 8.6 (8.6-10.8) mg/dL Total Bilirubin 0.3 (0.2-1.2) mg/dL Direct Bilirubin 0.1 (0.0-0.5) mg/dL Indirect Bilirubin 0.2 (0.0-1.2) mg/dL AST 11 (5-34) Units/L ALT 10 (0-55) Units/L Alkaline Phosphatase 93 (38-126) Units/L Troponin I 0.02 (0-0.03) ng/mL Serum Total Protein 6.5 (6.0-8.3) g/dL Albumin 3.1 L (3.5-5.0) g/dL Globulin 3.4 (2.4-3.5) g/dL Albumin/Globulin Ratio 0.9 L (1.1-2.2) Urine Color (Yellow) Urine Clarity (Clear) Urine pH (5.0-8.0) pH Units Ur Specific Garber (1.010-1.025) Urine Protein (Neg-Trace) mg/dL Urine Glucose (UA) (Normal) mg/dL Urine Ketones (Negative) mg/dL Urine Blood (Negative) Urine Nitrite (Negative) Urine Bilirubin (Negative) Urine Urobilinogen (Normal) mg/dL Ur Leukocyte Esterase (Negative) Ur Culture Indicated? (NO) - Radiology Data Radiology results reviewed: Yes I reviewed the patient's radiology results. - EKG Data EKG attestation: Yes I reviewed and interpreted this EKG. EKG results narrative: Heart rate 84 bpm. IN interval 158 ms. QTC 396 ms. Normal sinus rhythm. No ST elevation or ST depression noted. Overall EKG similar morphology to a 2016.
[2017-03-13 20:09] LABS: Bilirubin,Urine Negative (Negative); Blood,Urine Negative (Negative); Clarity,Urine Clear (Clear); Color,Urine Yellow (Yellow); Glucose,Urine (UA) Normal (Normal); Ketones,Urine Negative (Negative); Leukocyte Esterase,Urine Negative (Negative); Nitrite,Urine Negative (Negative); Protein,Urine Negative (Neg-Trace); Specific Gravity,Urine 1.011 (1.010-1.025); Urobilinogen,Urine Normal (Normal)
--- NOTE | 2017-03-13 20:31 | Emergency Department Note ---
START Narrative - START START: I examined this patient and my medical decision-making was reviewed with the Resident Physician. I agree with the documented findings, disposition and treatment plan as described except to the extent set forth below. 57 year old female presnts ot the ED with complaints of dyspnea without hypoxia. PAtient arrived via e[facility] and when they arrvied to her home she had audible wheezing and bronchitis cough. Lamnet wears 2LNC as needed but has noticed that she has needed increased oxygen requuirement lately. We will do cardiopulmonary workup and chandrika out an infectious source to this.
[2017-03-13 20:36] LABS: Basophils # 0.1 K/mcL (0.0-0.2); Basophils % 0.8 %; Eosinophils # 0.3 K/mcL (0.0-0.6); Eosinophils % 3.2 %; Hematocrit 35.6 % (35.3-44.9); Hemoglobin 11.2 g/dL (11.5-15.4); Immature Granulocytes % 0.3 % (0-4); Lymphocytes # 4.3 K/mcL (0.6-4.6); Lymphocytes % 42.2 %; Mean Corpuscular HGB Conc 31.5 g/dL (31.6-35.5); Mean Corpuscular Hemoglobin 30.2 pg (28.0-33.3); Mean Platelet Volume 9.2 fL (9.4-12.4); Monocytes # 0.8 K/mcL (0.0-1.3); Monocytes % 7.7 %; Neutrophils # 4.6 K/mcL (1.6-8.9); Platelet Count 242 K/mcL (140-400); Red Blood Count 3.71 M/mcL (3.82-4.97); Red Cell Distribution Width 14.8 % (11.5-14.5); Segmented Neutrophils % 45.8 %
[2017-03-13 20:51] LABS: Albumin 3.1 g/dL (3.5-5.0); Albumin/Globulin Ratio 0.9 (1.1-2.2); Bilirubin,Direct 0.1 mg/dL (0.0-0.5); Bilirubin,Indirect 0.2 mg/dL (0.0-1.2); Bilirubin,Total 0.3 mg/dL (0.2-1.2); Calcium 8.6 mg/dL (8.6-10.8); Globulin 3.4 g/dL (2.4-3.5); Potassium 4.4 mEq/L (3.5-4.5); Total Protein 6.5 g/dL (6.0-8.3)
[2017-03-13] MEDS ORDERED: 0.9 % Sodium Chloride 1,000 ML IVC ONE (20:56)
[2017-03-13] MEDS ORDERED: *HR* Morphine 2 MG/ML SYRINGE IVP ONE (21:03)
--- NOTE | 2017-03-13 21:19 | Internal Med History&Physical ---
<Ady Parks - Last Filed: 03/14/17 02:05> Date of Encounter: 03/14/17 Time of Encounter: 21:17 Assessment and Plan (1) Acute exacerbation of chronic obstructive airways disease Current visit: Yes Status: Acute COPD oxygen dependent on 2L NC at home CXR demonstrating no acute process, no infiltrates or effusion No leukocytosis, afebrile Patient received x1 dose of prenidsone 60mg and duoneb in the ED O2 sat 96% on 2L NC Smokes 1PPD for 43 years, tried quitting multiple times Plan: Admit to observation Levaquin IV Solu-Medrol CHUY Duoneb CHUY Albuterol PRN O2 NC @ 2L (2) Gkngw-xx-yffrpig kidney injury Current visit: Yes Status: Acute BUN 15 and Cr 1.81, which is elevated above her baseline Dry on examination ED gave one liter IVF Avoid Nephrotoxic agents, decreased ACEi to 20mg Will continue IVF and recheck BMP in the am Qualifiers: Acute renal failure type: unspecified Chronic kidney disease stage: stage 3 (moderate) Qualified Code(s): N17.9 - Acute kidney failure, unspecified; N18.3 - Chronic kidney disease, stage 3 (moderate); N18.3 - Chronic kidney disease, stage 3 (moderate) (3) Lightheadedness Current visit: Yes Status: Acute Present for several months now Start with orthostatics for now Decreased her ACEi to 20mg qd Patient would benefit from further outpatient investigation (4) Headache Current visit: Yes Status: Acute Resolving. Head CT negative Will continue to monitor. Qualifiers: Headache type: unspecified Headache chronicity pattern: chronic headache Intractability: not intractable Qualified Code(s): R51 - Headache (5) HTN (hypertension) Current visit: No Status: Chronic Well controlled at this time. Decreasing Lisinopril to 20mg qd Qualifiers: Hypertension type: essential hypertension Qualified Code(s): I10 - Essential (primary) hypertension (6) Tobacco abuse Current visit: Yes Status: Chronic Smokes 1PPD for 43 years (7) Tobacco abuse counseling Current visit: Yes Status: Acute Counseled patient on various cessation techniques. She declined any therapy and reports history of failure with patches, gum, wellbutrin and Chantix. (8) DVT prophylaxis Current visit: Yes Status: Acute Questionable history of DVT in left leg CKD with acute injury EPCDs Heparin 5000 units BID Internal Medicine - H&P: HPI Chief complaint: shortness of breath and lightheadedness Admitted From: Home Plans for Post Hospital Care: Home History of present illness: Ms. Garcia is a very pleasant 57 year old female with a past medical history of COPD, HTN, CKD stage 3 and GERD who presents to the [facility] Emergency Department with a chief complaint of shortness of breath and lightheadedness. She reports that over the past few days she has been experiencing worsening shortness of breath during exertion that resolves with rest. She is unable to lay flat because she feels suffocated when doing so. No PND or LE edema. There is associated non-productive cough and palpitations. She is instructed to use oxygen NC 2L at home PRN during the day and always at night, but she has not been using her oxygen at all because she does no have the equipment. Additionally, family in the room states that she was "knodding off" at the table after she took her BP medication. No loss of consciousness. She goes on to report that she often feels lightheaded when moving from a seated to standing position. Patient is also complaining of global headache that last hours and resolves with tyelonol or motrin. She describes the headaches as dull and experiences "a weird feeling in my body" beforehand. On arrival to the ED, her vitals signs were stable with o2 96% on NC 2L, WBC 10.1, Cr 1.81, urine negative, CXR showing no acute process and CT head negative. EKG unremarkable. Blood cultures sent. She was started on morphine, prednisone , duoneb and IV fluids. On evaluation, she is anxious after receiving breathing treatment and going into the CT scanner. She states that she often feels palpitations, but never was diagnosed with anxiety or panic attacks. No history of arrythmias or CAD. She does smoke 1PPD for last 43 years. No EtOH or illicit drug use. We will admit Ms. Garcia to observation for further workup and management. Past Med Surg Social Fam HX - Past Medical History Medical history: COPD, GERD, hypertension, renal disease, other Psychiatric history: no psych history - Past Surgical History Surgical History: hysterectomy, orthopedic, other - Social History Smoking Status: Current every day smoker Smokeless Tobacco Status: No Alcohol use: none Drug use: none - Family History Father Living Status: Still Living Hx Family Cancer: Yes Hx Family Endocrine Disorder: Yes Mother Living Status: Still Living Hx Family Cardiac Disorders: Yes Hx Family Cancer: Yes Internal Medicine - H&P: Meds Albuterol Sulfate [Proair Hfa] 2 puff IH Q4-6H PRN 09/28/15 [History] Acetaminophen/Diphenhydramine [Acetaminophen Pm Caplet] 2 each PO HS 06/11/16 [ History] Aclidinium [place] [Tudorza Pressair] 400 mcg IH BID 06/11/16 [History] Budesonide/Formoterol 160/4.5 [Symbicort 160/4.5] 2 puff IH BIDR 06/11/16 [ History] Calcium Carbonate/Vitamin D3 [Calcium 500-Vit D3 200 Tablet] 1 each PO BID 06/11 [History] Cholecalciferol (Vitamin D3) [Vitamin D3] 5,000 unit PO DAILY 06/11/16 [History] Diclofenac Sodium [Voltaren] 1 appl TP QID PRN 06/11/16 [History] Lisinopril 40 mg PO DAILY 06/11/16 [History] Ranitidine HCl [Acid Consulting Services Manager] 150 mg PO BID 06/11/16 [History] Varenicline Tartrate [Chantix Starting Month ] 1 mg PO BID 06/11/16 [History] Aspirin [Lo-Dose Aspirin EC] 81 mg PO DAILY #30 tablet. 06/12/16 [Rx] Clopidogrel Bisulfate [Plavix] 75 mg PO DAILY #30 tablet 06/12/16 [Rx] Clindamycin HCl 300 mg PO TID #30 capsule 11/13/16 [Rx] Fluticasone Propionate Nasal [Flonase] 120 spray NS DAILY #1 bottle 11/13/16 [Rx ] Gabapentin [Neurontin] 300 mg PO TID 03/13/17 [History] 3 Allergy/AdvReac Type Severity Reaction Status Date / Time acetaminophen [From [place]] AdvReac Nausea Verified 11/13/16 12:11 bupropion [From Wellbutrin] AdvReac Agitated Verified 11/13/16 12:11 hydrocodone [From [place]] AdvReac Nausea Verified 11/13/16 12:11 pregabalin [From Lyrica] AdvReac Nausea Verified 11/13/16 12:11 All Systems PM: A 10-system review of systems was performed and is negative for pertinent findings except as documented above in the HPI. - Constitutional Constitutional: no fever(s), no weakness - EENT Eyes: no loss of vision - Cardiovascular Cardiovascular ROS IM: lightheadedness, orthopnea, no chest pain, no edema, no paroxysmal nocturnal dyspnea - Respiratory Respiratory: cough, no hemoptysis, no pain on inspiration - Gastrointestinal Gastrointestinal: no abdominal pain, no constipation, no diarrhea - Genitourinary Genitourinary: no dysuria - Integumentary Integumentary IM: no new lesions - Neurological Neurological ROS: as per HPI, headache(s) - Psychiatric Psychiatric: anxiety - Constitutional Vitals: Temp Pulse Resp BP Pulse Ox 98.2 F 84 18 106/62 97 03/13/17 19:53 03/13/17 20:00 03/13/17 20:21 03/13/17 20:00 03/13/17 20:21 General appearance: Present: cooperative, A&O X 3, no acute distress, answers questions appropriately - Head Head exam: Present: atraumatic, normocephalic - Eye Eye exam: Present: EOMI, conjuntiva pink, sclera anicteric - ENT ENT exam: Present: mucous membranes dry - Neck Neck exam general surgery: Present: supple, trachea midline - Respiratory Respiratory exam: Present: wheezes. Absent: accessory muscle use, prolonged expiratory phase, respiratory distress - Cardiovascular Cardiovascular exam: Present: RRR, +S1, +S2 - GI/Abdominal GI/Abdominal exam: Present: normal bowel sounds, soft. Absent: tenderness - Extremities Exam Extremities exam: Present: warm. Absent: pedal edema, tenderness - Neurological Exam Neurological exam: Present: alert, oriented X3. Absent: speech deficit - Psychiatric Psychiatric exam: Present: anxious - Skin Skin exam: Present: dry, warm Internal Med - H&P Results - Labs CBC & Chem 7: 03/13/17 20:23 03/13/17 20:23 Labs: Short CBC 03/13/17 Range/Units 20:23 WBC 10.1 (4.3-11.1) K/mcL Hgb 11.2 L (11.5-15.4) g/dL Hct 35.6 (35.3-44.9) % Plt Count 242 (140-400) K/mcL Neutrophils # 4.6 (1.6-8.9) K/mcL BMP 03/13/17 20:23 Sodium 138 Potassium 4.4 Chloride 105 Carbon Dioxide 28 BUN 15 Creatinine 1.81 H Glucose 89 Calcium 8.6 Cardiac Enzymes 03/13/17 Range/Units 20:23 Troponin I 0.02 (0-0.03) ng/mL Liver Function 03/13/17 Range/Units 20:23 Total Bilirubin 0.3 (0.2-1.2) mg/dL Direct Bilirubin 0.1 (0.0-0.5) mg/dL AST 11 (5-34) Units/L ALT 10 (0-55) Units/L Alkaline Phosphatase 93 (38-126) Units/L Albumin 3.1 L (3.5-5.0) g/dL Urine 03/13/17 Range/Units 20:01 Urine Color Yellow (Yellow) Urine Clarity Clear (Clear) Urine pH 6.0 (5.0-8.0) pH Units Ur Specific [place] 1.011 (1.010-1.025) Urine Protein Negative (Neg-Trace) mg/dL Urine Glucose (UA) Normal (Normal) mg/dL - Impressions ITS Impressions Chest X-Ray 03/13/17 19:53 IMPRESSION: Stable portable study. D/ / Andreia Landaverde Cha, MD / Andreia Landaverde Cha, MD Interpreting Provider: Andreia Landaverde Cha, MD <Jeanmarie Gupta - Last Filed: 03/14/17 03:54> Date of Encounter: 03/13/17 Internal Medicine - H&P: HPI History of present illness: Ms. Garcia is a 57 year old female All Systems PM: A 10-system review of systems was performed and is negative for pertinent findings except as documented above in the HPI. - Constitutional Vitals: Temp Pulse Resp BP Pulse Ox 97.5 F L 82 16 112/72 96 03/13/17 23:10 03/13/17 23:10 03/13/17 23:10 03/13/17 23:10 03/13/17 23:10 Internal Med - H&P Results - Labs CBC & Chem 7: 03/13/17 20:23 03/13/17 20:23 - Attending Attestation I examined this patient and my medical decision-making was reviewed with the Resident Physician Dr. Parks. I agree with the documented findings, disposition and treatment plan as described except to the extent set forth below. Ms. Garcia is a 57 year old female with a past medical history of COPD, HTN, CKD-2 , Chronic tobacco smoker and GERD who presented to the [facility] Emergency Department with a chief complaint of shortness of breath and lightheadedness. She reported that over the past few days she has been experiencing worsening shortness of breath during exertion that resolves with rest. Pt stated she is feeling little better now. Denied any CP. Does have some problems with O2 set up at home. Gen: A, A, O x3 Chest: Diminished BS b/l, no crackles, No rales.. moderate wheezing Heart; S1 S2 + A/ P 1. Acute COPD exacerbation 2. Chronic hypoxic resp failure - does use 2 lit O2 at HS 3. Chronic tobacco dependence Will place the pt into med surg for observation IV steroids + Duoneb + o2 4. TEZ with CKD-2 IV hydration
[2017-03-13] MEDS ORDERED: Naloxone 0.4 MG/ML INJ IVP PRN (22:28)
[2017-03-13] MEDS ORDERED: Albuterol 2.5 MG/3 ML NEBULIZER IH PRN (22:33)
[2017-03-13] MEDS ORDERED: Levofloxacin 750 MG/150 ML 750 MG/150 ML BAG IVPB SCH (23:00)
[2017-03-13] MEDS: 0.9 % Sodium Chloride 1,000 ML IVC SCH (23:42)
[2017-03-14] MEDS ORDERED: methylPREDNISolone 125 MG/2 ML VIAL IVP SCH
[2017-03-14] MEDS: Ipratropium/Albuterol Neb 3 ML IH SCH ×2 (04:02→10:26)
[2017-03-14] MEDS: MethylPREDNISolone 40 MG/ML VIAL IVP SCH ×2 (04:04→13:50)
[2017-03-14] MEDS ORDERED: NON-FORMULARY MEDICATION 1 EACH EACH (Acetaminophen/Diphenhydramine [Acetaminophen Pm Capl PO SCH (04:15)
[2017-03-14] MEDS ORDERED: Acetaminophen 325 MG TABLET PO SCH (04:15)
[2017-03-14 05:05] LABS: Basophils % 0.1 %; Hematocrit 34.6 % (35.3-44.9); Hemoglobin 11.3 g/dL (11.5-15.4); Immature Granulocytes % 0.4 % (0-4); Lymphocytes # 0.7 K/mcL (0.6-4.6); Lymphocytes % 8.4 %; Mean Corpuscular HGB Conc 32.7 g/dL (31.6-35.5); Mean Corpuscular Hemoglobin 31.3 pg (28.0-33.3); Mean Corpuscular Volume 95.8 fL (83.0-100.0); Mean Platelet Volume 9.5 fL (9.4-12.4); Monocytes % 0.5 %; Platelet Count 228 K/mcL (140-400); Red Blood Count 3.61 M/mcL (3.82-4.97); Red Cell Distribution Width 14.8 % (11.5-14.5); Segmented Neutrophils % 90.6 %
[2017-03-14 05:22] LABS: Calcium 8.6 mg/dL (8.6-10.8); Potassium 4.6 mEq/L (3.5-4.5)
[2017-03-14 05:23] LABS: Neutrophils # 7.4 K/mcL (1.6-8.9)
[2017-03-14] MEDS ORDERED: *HR* Heparin 5,000 UNIT/ML VIAL SQ SCH (06:00)
[2017-03-14 06:29] LABS: Platelet Estimate Normal (Normal)
[2017-03-14] MEDS ORDERED: Lisinopril 20 MG TABLET PO SCH (09:00)
[2017-03-14] MEDS ORDERED: Nicotine 21 MG PATCH.TD24 TD SCH (09:00)
[2017-03-14] MEDS ORDERED: Aspirin Enteric Coated 81 MG Tablet PO SCH (09:00)
[2017-03-14] MEDS ORDERED: Acetaminophen 325 MG TABLET PO PRN (09:16)
[2017-03-14 11:11] VITALS: BP 113/64
--- NOTE | 2017-03-14 11:36 | Discharge Summary ---
Date of Encounter: 03/14/17 Time of Encounter: 11:34 - Discharge Diagnosis (1) Acute exacerbation of chronic obstructive airways disease Priority: Primary Status: Acute Comments: Acute on chronic hypoxic respiratory failure secondary to acute COPD exacerbation due to acute bacterial bronchitis (2) CKD (chronic kidney disease), stage III Priority: Secondary Status: Chronic Comments: 2 chronic renal failure secondary to dehydration Improved on fluids/resolved (3) HTN (hypertension) Priority: Secondary Status: Chronic Qualifiers: Hypertension type: essential hypertension Qualified Code(s): I10 - Essential (primary) hypertension (4) Crekp-[id number]-vqbrgmb kidney injury Priority: Secondary Status: Acute Qualifiers: Acute renal failure type: unspecified Chronic kidney disease stage: stage 3 (moderate) Qualified Code(s): N17.9 - Acute kidney failure, unspecified; N18.3 - Chronic kidney disease, stage 3 (moderate); N18.3 - Chronic kidney disease, stage 3 (moderate) (5) Headache Priority: Secondary Status: Acute Qualifiers: Headache type: unspecified Headache chronicity pattern: chronic headache Intractability: not intractable Qualified Code(s): R51 - Headache (6) Tobacco abuse Priority: Secondary Status: Chronic Comments: Smoking cessation counseling given for 5 min - Discharge Medications Prescriptions: Amoxicillin/Clavulanate [Augmentin] 875 mg PO BIDWM #14 tablet Benzonatate [Tessalon] 100 mg PO TID PRN #30 capsule PRN Reason: Cough Omeprazole [PriLOSEC] 20 mg PO DAILY #30 capsule. predniSONE [PredniSONE] 10 mg PO DAILY 12 Days tablet Home Medications: Albuterol Sulfate [Proair Hfa] 2 puff IH Q4-6H PRN 09/28/15 [History] Acetaminophen/Diphenhydramine [Acetaminophen Pm Caplet] 2 each PO HS 06/11/16 [ History] Budesonide/Formoterol 160/4.5 [Symbicort 160/4.5] 2 puff IH BIDR 06/11/16 [ History] Calcium Carbonate/Vitamin D3 [Calcium 500-Vit D3 200 Tablet] 1 each PO BID 06/11 [History] Cholecalciferol (Vitamin D3) [Vitamin D3] 5,000 unit PO DAILY 06/11/16 [History] Lisinopril 40 mg PO DAILY 06/11/16 [History] Aspirin [Lo-Dose Aspirin EC] 81 mg PO DAILY #30 tablet. 06/12/16 [Rx] Clopidogrel Bisulfate [Plavix] 75 mg PO DAILY #30 tablet 06/12/16 [Rx] Gabapentin [Neurontin] 300 mg PO TID 03/13/17 [History] Amoxicillin/Clavulanate [Augmentin] 875 mg PO BIDWM #14 tablet 03/14/17 [Rx] Benzonatate [Tessalon] 100 mg PO TID PRN #30 capsule 03/14/17 [Rx] Cilostazol [Pletal] 100 mg PO BID 03/14/17 [History] Lovastatin [Mevacor] 20 mg PO HS 03/14/17 [History] Omeprazole [PriLOSEC] 20 mg PO DAILY #30 capsule. 03/14/17 [Rx] Umeclidinium [place] [Incruse Ellipta] 1 puff IH DAILY 03/14/17 [History] Warfarin [Coumadin] 2.5 mg PO WE 03/14/17 [History] Warfarin [Coumadin] 5 mg PO SUMOTUTHFRSA 03/14/17 [History] predniSONE [PredniSONE] 10 mg PO DAILY 12 Days tablet 03/14/17 [Rx] Allergies/Adverse Reactions: 3 Allergy/AdvReac Type Severity Reaction Status Date / Time bupropion [From Wellbutrin] AdvReac Agitated Verified 03/14/17 07:28 hydrocodone [From [place]] AdvReac Nausea Verified 03/14/17 07:28 pregabalin [From Lyrica] AdvReac Nausea Verified 03/14/17 07:28 Date of admission: 03/13/17 21:31 Primary care physician: Trav Garcia Consults: 03/14/17 03:35 Consult to Rail Grinder [CONS] Routine Reason for SW Consult: Patient is without oxygen equipment at home - Patient Status Disposition: Home, Self-Care Condition: Good Overall status at discharge: patient is progressing back to baseline - Discharge Instructions Follow Up With: Trav Garcia MD [Primary Care Provider] - Additional Instructions: Follow-up with primary care physician within the next 7 days. Quit smoking. Prednisone taper as follows 40 mg daiily for 3 days, 30 mg for 3 days, 20 mg for 3 days, 10 mg for 3 days. Continue Augmentin - Diet and Activity Activity: wear oxygen at all times Diet: low fat, low cholesterol Hospital course: Ms. Garcia is a 57 year old female with a past medical history of lower extremity ischemic occlusion, COPD oxygen dependent using 2 L at night, tobacco use, HTN, CKD stage 3 and GERD who presented to the [facility] Emergency Department with a chief complaint of shortness of breath and lightheadedness. She reported that over the past few days she was experiencing worsening shortness of breath during exertion that resolved with rest. She was unable to lay flat because she felt suffocated when doing so. No PND or LE edema. There is associated non-productive cough and palpitations. She was instructed to use oxygen NC 2L at home PRN during the day and always at night. CXR showing no acute process and CT head negative. EKG unremarkable. She does smoke 1PPD for last 43 years. No EtOH or illicit drug use. The patient was started on Solu-Medrol and Levaquin, her COPD exacerbation is better today and she is a stable to be discharged. Time spent discussing smoking cessation with patient: 3 to 10 minutes - Time Spent with Patient Total time spent providing and/or coordinating discharge services: Greater than 30 minutes (40 min) - Constitutional Vitals: Temp Pulse Resp BP Pulse Ox 97.8 F 95 17 113/64 91 03/14/17 11:10 03/14/17 11:10 03/14/17 11:10 03/14/17 11:10 03/14/17 11:10 General appearance: Present: cooperative, A&O X 3, no acute distress, answers questions appropriately - Head Head exam: Present: atraumatic, normocephalic - Eye Eye exam: Present: PERRL, conjuntiva pink, sclera anicteric Pupils: Present: PERRL - Neck Neck exam general surgery: Present: supple, trachea midline. Absent: lymphadenopathy - Respiratory Respiratory exam: Present: CTAB. Absent: accessory muscle use, rales, rhonchi, wheezes - Cardiovascular Cardiovascular exam: Present: RRR, +S1, +S2. Absent: diastolic murmur, gallop, rubs, systolic murmur - GI/Abdominal GI/Abdominal exam: Present: normal bowel sounds, soft, no peritoneal signs. Absent: distended, tenderness - Extremities Exam Extremities exam: Present: warm, radial pulses palpable and symmetrical. Absent : calf tenderness, cyanotic, pedal edema - Neurological Exam Neurological exam: Present: CN II-XII intact, oriented X3, no focal deficits. Absent: pronater drift, facial droop, speech deficit - Skin Skin exam: Present: dry, intact
--- NOTE | 2017-03-14 11:50 | Physician Discharge Referral ---
Home Health/Hosp Referral Info Transfer to: Home Health Provider in Charge Post Discharge: PCP - Diagnosis (1) Acute exacerbation of chronic obstructive airways disease Status: Acute (2) CKD (chronic kidney disease), stage III Status: Chronic (3) HTN (hypertension) Status: Chronic (4) Ddfpi-[id number] kidney injury Status: Acute (5) Headache Status: Acute (6) Tobacco abuse Status: Chronic - Respiratory Orders Oxygen / L per min (2 L at night and as needed) Smoking Cessation: Smoking cessation has been advised. For more information, call the [place] Tobacco Quit Line at 2-768-LELP-NOW. - Services Needed Home Care Orders: Follow-up with primary care physician within the next 7 days. Quit smoking. Prednisone taper as follows 40 mg daiily for 3 days, 30 mg for 3 days, 20 mg for 3 days, 10 mg for 3 days. Continue Augmentin - Transfer Medications Prescriptions: Amoxicillin/Clavulanate [Augmentin] 875 mg PO BIDWM #14 tablet Benzonatate [Tessalon] 100 mg PO TID PRN #30 capsule PRN Reason: Cough Omeprazole [PriLOSEC] 20 mg PO DAILY #30 capsule. predniSONE [PredniSONE] 10 mg PO DAILY 12 Days tablet Home Medications: Albuterol Sulfate [Proair Hfa] 2 puff IH Q4-6H PRN 09/28/15 [History] Acetaminophen/Diphenhydramine [Acetaminophen Pm Caplet] 2 each PO HS 06/11/16 [ History] Budesonide/Formoterol 160/4.5 [Symbicort 160/4.5] 2 puff IH BIDR 06/11/16 [ History] Calcium Carbonate/Vitamin D3 [Calcium 500-Vit D3 200 Tablet] 1 each PO BID 06/11 [History] Cholecalciferol (Vitamin D3) [Vitamin D3] 5,000 unit PO DAILY 06/11/16 [History] Lisinopril 40 mg PO DAILY 06/11/16 [History] Aspirin [Lo-Dose Aspirin EC] 81 mg PO DAILY #30 tablet. 06/12/16 [Rx] Clopidogrel Bisulfate [Plavix] 75 mg PO DAILY #30 tablet 06/12/16 [Rx] Gabapentin [Neurontin] 300 mg PO TID 03/13/17 [History] Amoxicillin/Clavulanate [Augmentin] 875 mg PO BIDWM #14 tablet 03/14/17 [Rx] Benzonatate [Tessalon] 100 mg PO TID PRN #30 capsule 03/14/17 [Rx] Cilostazol [Pletal] 100 mg PO BID 03/14/17 [History] Lovastatin [Mevacor] 20 mg PO HS 03/14/17 [History] Omeprazole [PriLOSEC] 20 mg PO DAILY #30 capsule. 03/14/17 [Rx] Umeclidinium [place] [Incruse Ellipta] 1 puff IH DAILY 03/14/17 [History] Warfarin [Coumadin] 2.5 mg PO WE 03/14/17 [History] Warfarin [Coumadin] 5 mg PO SUMOTUTHFRSA 03/14/17 [History] predniSONE [PredniSONE] 10 mg PO DAILY 12 Days tablet 03/14/17 [Rx] Allergies/Adverse Reactions: 3 Allergy/AdvReac Type Severity Reaction Status Date / Time bupropion [From Wellbutrin] AdvReac Agitated Verified 03/14/17 07:28 hydrocodone [From [place]] AdvReac Nausea Verified 03/14/17 07:28 pregabalin [From Lyrica] AdvReac Nausea Verified 03/14/17 07:28 Certification: Further, I certify that my clinical findings support that this patient is homebound (i.e. absences from home require considerable and taxing effort and are for medical reasons or anabaptism services or infrequently or short duration when for other reasons) because: Homebound Reason: Patient requires assistance of a person or device to safely leave home Attestation: My signature below is to certify that this patient is under my care and that I, or nurse practitioner, or a physician's legislative assistant working with me, has a face-to -face encounter with this patient.
[2017-03-14] MEDS: 0.9 % Sodium Chloride 1,000 ML IVC SCH (13:50)
--- NOTE | 2017-03-14 17:08 | Electrocardiograph Report ---
[place] [id number] Test Date: 2017-03-13 Pat Name: Lorna Garcia Department: 103 Room: 2A25 Gender: F Breastfeeding Program Coordinator: SARA : 1960 Requested By: Daniel Noyola Order Number: [id number] Reading MD: Patricia Block Measurements Intervals [place] Rate: 84 P: 64 GA: 158 QRS: 47 QRSD: 85 T: 59 QT: 355 QTc: 396 Interpretive Statements SINUS RHYTHM WITH OCCASIONAL SUPRAVENTRICULAR PREMATURE COMPLEXES Electronically Signed On 03-14-2017 17:06:15 EST by Patricia Block
== END 2017-03-14 14:10 | disposition home or self-care (01) ==
LOC: EMEROO 19:50 → 2ANU 19:50
PROVIDERS: ADMIT Family Medicine; ATTEND Internal Medicine

== ENCOUNTER 2017-08-23 12:48 | Observation (INO) ==
--- NOTE | 2017-08-23 13:08 | Emergency Department Note ---
Disposition Clinical Impression: Syncope Qualifiers: Syncope type: unspecified Qualified Code(s): R55 - Syncope and collapse Difficulty swallowing Qualifiers: Dysphagia type: other dysphagia Qualified Code(s): R13.19 - Other dysphagia Disposition: Admitted As Inpatient Condition: Fair General Adult HPI - General Chief complaint: ED Syncope Stated complaint: Syncopal episode Time Seen by Provider: 08/23/17 12:50 Nursing Notes Reviewed: Yes Vital Signs Reviewed: Yes - History of Present Illness HPI Narrative: 57-year-old female presents to the emergency department with concern for having a syncopal episode today. Patient was at the gas station when she fell. Reports hitting her head. Reports hip pain. Patient denies any dizziness. Patient denies any episodes like this before. Patient also reports having chest pressure. Patient has known history of peripheral vascular disease. According to family, patient was acting a little off all morning. There was no real time of last known well source of family were inconsistent. Also, there were reports that patient was having some dysphasia noted last week as well. Patient had a headache earlier today as well. This has resolved for the most part. Patient's also reported left-sided facial numbness, left upper extremity numbness. Patient only reported chest pain at this time. - Related Data Home Medications Medication Instructions Recorded Confirmed Albuterol Sulfate [Proair Hfa] 2 puff IH Q4-6H PRN 09/28/15 08/23/17 Budesonide/Formoterol 160/4.5 2 puff IH BIDR 06/11/16 08/23/17 [Symbicort 160/4.5] Gabapentin [Neurontin] 300 mg PO TID PRN 03/13/17 08/23/17 Cilostazol [Pletal] 100 mg PO BID 03/14/17 08/23/17 Lovastatin [Mevacor] 20 mg PO HS 03/14/17 08/23/17 Umeclidinium [place] [Incruse 1 puff IH DAILY 03/14/17 08/23/17 Ellipta] Lisinopril [Zestril] 40 mg PO DAILY 08/23/17 08/23/17 Previous Rx's Medication Instructions Recorded Aspirin [Lo-Dose Aspirin EC] 81 mg PO DAILY #30 tablet. 06/12/16 Clopidogrel Bisulfate [Plavix] 75 mg PO DAILY #30 tablet 06/12/16 Omeprazole [PriLOSEC] 20 mg PO DAILY #30 capsule. 03/14/17 Fluticasone Propionate Nasal 2 spray NS DAILY #1 bottle 08/20/17 [Flonase] predniSONE [PredniSONE] 20 mg PO DAILY 5 Days #7 tablet 08/20/17 Allergies Allergy/AdvReac Type Severity Reaction Status Date / Time bupropion [From Wellbutrin] AdvReac Agitated Verified 08/23/17 14:27 hydrocodone [From [place]] AdvReac Nausea Verified 08/23/17 14:27 pregabalin [From Lyrica] AdvReac Nausea Verified 08/23/17 14:27 All systems ED: reviewed and negative except as stated. Review of Systems: As Per HPI Constitutional: Denies: fever, chills ENT ED: Reports: dysphagia Cardiovascular: Reports: chest pain. Denies: palpitations Respiratory: Reports: dyspnea. Denies: cough Gastrointestinal: Denies: abdominal pain, nausea, vomiting Genitourinary: Denies: urgency, dysuria, frequency, hematuria Musculoskeletal: Reports: neck pain Neurological: Reports: headache, numbness, paresthesias. 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 Absent: scleral icterus, conjunctival injection - ENT ENT exam: normal exam, normal oropharynx - Neck Neck exam: Present: trachea midline. Absent: tenderness, meningismus - Chest Chest inspection: Present: normal inspection, symmetric chest wall rise, other ( Bruising on the ribs) - Respiratory Respiratory exam: Present: normal lung sounds bilaterally. Absent: respiratory distress, accessory muscle use - Cardiovascular Cardiovascular exam: Present: regular rate, normal rhythm, normal heart sounds - Abdominal Exam Abdominal exam: Present: soft, Non-Tender. Absent: distention, guarding, rebound, rigidity - Extremities Exam Extremities exam: Present: normal capillary refill. Absent: tenderness - Back Exam Back exam: Present: other (Scratch on the left flank area) - Neurological Exam Neurological exam: Present: alert, oriented X3, CN II-XII intact, other (NIH of 0) - Psychiatric Psychiatric exam: Present: normal affect, normal mood - Skin Skin exam: Present: warm, dry Course Vital Signs Temperature 97.8 F 08/23/17 12:49 Pulse Rate 111 08/23/17 12:49 Respiratory Rate 16 08/23/17 12:49 Blood Pressure 112/68 08/23/17 12:49 O2 Sat by Pulse Oximetry 96 08/23/17 12:49 Temperature 97.8 F 08/23/17 12:49 Pulse Rate 85 08/23/17 16:25 Respiratory Rate 16 08/23/17 16:25 Blood Pressure 146/58 08/23/17 16:25 O2 Sat by Pulse Oximetry 99 08/23/17 16:25 Oxygen Delivery Oxygen Delivery Room Air Medical Decision Making - MDM Narrative Medical decision making narrative: 57-year-old female presents to the emergency department with concern for syncopal event. Electrocardiogram does not reveal any evidence of Zuleika- Parkinson-White, Brugada's, hypertrophic myopathy, STEMI. NIH is 0. Patient only reporting subjective numbness of the left side of the face, left upper extremity. Reporting left lower extremity numbness, but reports that this is constant. Patient has extensive peripheral arterial disease. Reported stent in left lower extremity. Last known well at patient has been within the last week. Family members were inconsistent as far as the exact time and date, but patient clearly out of the window for any thrombolytics upon time of arrival here in the emergency department. CT head was within normal limits. Chest x-ray did not reveal any evidence of rib fracture or any cardiac and abnormality. Initial troponin was negative. Creatinine mildly elevated, but this is within her baseline from previous visits. I spoke with neurology on the phone they recommended administration of Plavix 75 mg orally. This was ordered. Patient did not pass dysphagia screening. Due to not been able to tolerate her pills, Plavix cannot be administered. Aspirin was given rectally 300 mg. MR angiogram of the head and neck were obtained. Did not reveal any evidence of clot. 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 I spoke with the family regarding all the imaging results. Discussed further workup of patient within the hospital. Patient and family agree with plan. Patient still reporting difficulty swallowing at time of admission to the hospital. Chest X-Ray 08/23/17 12:51 IMPRESSION: No acute process. D/ / Jesse Mcclain MD / Jesse Mcclain MD Interpreting Provider: Jesse Mcclain MD Head CT 08/23/17 12:51 IMPRESSION: No acute intracranial abnormality. No change from prior. D/ / Jeremiah Tavares MD / Jeremiah Tavares MD Interpreting Provider: Jreemiah Tavares MD Cervical Spine CT 08/23/17 13:07 IMPRESSION: No acute abnormality of the cervical spine. D/ / Mega Edwards MD / Mega Edwards MD Interpreting Provider: Mgea Edwards MD Pelvis X-Ray 08/23/17 13:07 IMPRESSION: No acute osseous abnormality. D/ / Lakshmi Hernandez MD / Lakshmi Hernandez MD Interpreting Provider: Lakshmi Hernandez MD Brain MRI 08/23/17 14:28 IMPRESSION: No acute infarct. No flow limiting stenosis or branch occlusion detected within the head or neck. Possible aneurysm of the right cavernous ICA. Consider CTA of the head for further evaluation. D/ / Mick Ojeda MD / Mick Ojeda MD Interpreting Provider: Mick Ojeda MD Neck MRA 08/23/17 14:39 IMPRESSION: No acute infarct. No flow limiting stenosis or branch occlusion detected within the head or neck. Possible aneurysm of the right cavernous ICA. Consider CTA of the head for further evaluation. D/ / Mick Ojeda MD / Mick Ojeda MD Interpreting Provider: Mick Ojeda MD Head MRA 08/23/17 15:39 IMPRESSION: No acute infarct. No flow limiting stenosis or branch occlusion detected within the head or neck. Possible aneurysm of the right cavernous ICA. Consider CTA of the head for further evaluation. D/ / Mick Ojeda MD / Mick Ojeda MD Interpreting Provider: Mick Ojeda MD - Lab Data Result diagrams: 08/23/17 13:24 08/23/17 13:24 Lab Results 08/23/17 08/23/17 08/23/17 Range/Units 13:23 13:24 13:24 WBC 8.8 (4.3-11.1) K/mcL RBC 4.21 (3.82-4.97) M/mcL Hgb 13.1 (11.5-15.4) g/dL Hct 38.7 (35.3-44.9) % MCV 91.9 (83.0-100.0) fL MCH 31.1 (28.0-33.3) pg MCHC 33.9 (31.6-35.5) g/dL RDW 13.3 (11.5-14.5) % Plt Count 283 (140-400) K/mcL MPV 9.5 (9.4-12.4) fL Immature Gran % 0.5 (0-4) % Seg Neutrophils % 79.6 % Lymphocytes % 16.7 % Monocytes % 2.7 % Eosinophils % 0.2 % Basophils % 0.3 % Neutrophils # 7.0 (1.6-8.9) K/mcL Lymphocytes # 1.5 (0.6-4.6) K/mcL Monocytes # 0.2 (0.0-1.3) K/mcL Eosinophils # 0.0 (0.0-0.6) K/mcL Basophils # 0.0 (0.0-0.2) K/mcL PT 9.1 L (9.4-12.1) Seconds INR 0.9 APTT 30.5 (26.0-36.0) Seconds D-Dimer 468 (0-500) ng/mLFEU Sodium (136-145) mEq/L Potassium (3.5-5.1) mEq/L Chloride (98-107) mEq/L Carbon Dioxide (23-29) mEq/L BUN (6-20) mg/dL Creatinine (0.60-1.20) mg/dL Est GFR ( Amer) (> 60) Est GFR (Non-Af Amer) (> 60) BUN/Creatinine Ratio (6-26) Glucose (70-105) mg/dL Calculated Osmolality (280-300) Calcium (8.6-10.3) mg/dL Troponin I (< 0.04) ng/mL B-Natriuretic Peptide 96 (Less than 100) pg/mL Urine Color (Yellow) Urine Clarity (Clear) Urine pH (5.0-8.0) pH Units Ur Specific [place] (1.010-1.025) Urine Protein (Neg-Trace) mg/dL Urine Glucose (UA) (Normal) mg/dL Urine Ketones (Negative) mg/dL Urine Blood (Negative) Urine Nitrite (Negative) Urine Bilirubin (Negative) Urine Urobilinogen (Normal) mg/dL Ur Leukocyte Esterase (Negative) 08/23/17 08/23/17 Range/Units 13:24 13:50 WBC (4.3-11.1) K/mcL RBC (3.82-4.97) M/mcL Hgb (11.5-15.4) g/dL Hct (35.3-44.9) % MCV (83.0-100.0) fL MCH (28.0-33.3) pg MCHC (31.6-35.5) g/dL RDW (11.5-14.5) % Plt Count (140-400) K/mcL MPV (9.4-12.4) fL Immature Gran % (0-4) % Seg Neutrophils % % Lymphocytes % % Monocytes % % Eosinophils % % Basophils % % Neutrophils # (1.6-8.9) K/mcL Lymphocytes # (0.6-4.6) K/mcL Monocytes # (0.0-1.3) K/mcL Eosinophils # (0.0-0.6) K/mcL Basophils # (0.0-0.2) K/mcL PT (9.4-12.1) Seconds INR APTT (26.0-36.0) Seconds D-Dimer (0-500) ng/mLFEU Sodium 134 L (136-145) mEq/L Potassium 4.7 (3.5-5.1) mEq/L Chloride 105 (98-107) mEq/L Carbon Dioxide 24 (23-29) mEq/L BUN 27 H (6-20) mg/dL Creatinine 1.66 H (0.60-1.20) mg/dL Est GFR ( Amer) 38 L (> 60) Est GFR (Non-Af Amer) 32 L (> 60) BUN/Creatinine Ratio 16 (6-26) Glucose 120 H (70-105) mg/dL Calculated Osmolality 284 (280-300) Calcium 9.2 (8.6-10.3) mg/dL Troponin I < 0.03 (< 0.04) ng/mL B-Natriuretic Peptide (Less than 100) pg/mL Urine Color Yellow (Yellow) Urine Clarity Clear (Clear) Urine pH 6.0 (5.0-8.0) pH Units Ur Specific [place] 1.011 (1.010-1.025) Urine Protein Negative (Neg-Trace) mg/dL Urine Glucose (UA) Normal (Normal) mg/dL Urine Ketones Negative (Negative) mg/dL Urine Blood Negative (Negative) Urine Nitrite Negative (Negative) Urine Bilirubin Negative (Negative) Urine Urobilinogen Normal (Normal) mg/dL Ur Leukocyte Esterase Negative (Negative) - EKG Data EKG #1 EKG attestation: Yes I reviewed and interpreted this EKG. EKG results narrative: 12:47 Ventricular rate 90 bpm, WA interval 140 ms, QRS duration 86 ms, QT 328 ms, QTC 376 months seconds, normal axis. Sinus rhythm with a ventricular rate of 90 bpm. There are occasional PVCs here. No evidence of any ischemia on this electrocardiogram. EKG #214:22 Ventricular rate 87 bpm, WA interval 153 ms, QRS duration 85 ms, QT 341 ms, QTC 385 ms, normal axis. No changes from previous EKG obtained today. Attestation Statement - Attestation Attestation: I, Choco Dodd DO, examined this patient [id number] and my medical decision-making was reviewed with Dr. Donovan Linares, Resident Physician. I agree with the documented findings, disposition and treatment plan as described except to the extent set forth below. Please see my progress notes for details.
[2017-08-23 13:57] LABS: BUN/Creatinine Ratio 16 (6-26); Blood Urea Nitrogen 27 mg/dL (6-20); Calcium 9.2 mg/dL (8.6-10.3); Carbon Dioxide 24 mEq/L (23-29); Chloride 105 mEq/L (98-107); Glucose 120 mg/dL (70-105); Osmolality,Calculated 284 (280-300); Potassium 4.7 mEq/L (3.5-5.1); Sodium 134 mEq/L (136-145); Troponin I < 0.03 ng/mL (< 0.04); eGFR For African Americans 38 (> 60); eGFR For Non-African Americans 32 (> 60)
[2017-08-23 13:59] LABS: Basophils % 0.3 %; Eosinophils % 0.2 %; Hematocrit 38.7 % (35.3-44.9); Hemoglobin 13.1 g/dL (11.5-15.4); Immature Granulocytes % 0.5 % (0-4); Lymphocytes # 1.5 K/mcL (0.6-4.6); Lymphocytes % 16.7 %; Mean Corpuscular HGB Conc 33.9 g/dL (31.6-35.5); Mean Corpuscular Hemoglobin 31.1 pg (28.0-33.3); Mean Corpuscular Volume 91.9 fL (83.0-100.0); Mean Platelet Volume 9.5 fL (9.4-12.4); Monocytes # 0.2 K/mcL (0.0-1.3); Monocytes % 2.7 %; Platelet Count 283 K/mcL (140-400); Red Blood Count 4.21 M/mcL (3.82-4.97); Red Cell Distribution Width 13.3 % (11.5-14.5); Segmented Neutrophils % 79.6 %
[2017-08-23 14:04] LABS: INR 0.9; Prothrombin Time 9.1 Seconds (9.4-12.1)
[2017-08-23 14:07] LABS: Activated Partial Thrombo Time 30.5 Seconds (26.0-36.0)
[2017-08-23 14:18] LABS: Bilirubin,Urine Negative (Negative); Blood,Urine Negative (Negative); Clarity,Urine Clear (Clear); Color,Urine Yellow (Yellow); Glucose,Urine (UA) Normal (Normal); Ketones,Urine Negative (Negative); Leukocyte Esterase,Urine Negative (Negative); Nitrite,Urine Negative (Negative); Protein,Urine Negative (Neg-Trace); Specific Gravity,Urine 1.011 (1.010-1.025); Urobilinogen,Urine Normal (Normal)
[2017-08-23] MEDS ORDERED: Aspirin 81 MG TAB.CHEW PO ONE (14:18)
[2017-08-23] MEDS ORDERED: 0.9 % Sodium Chloride 1,000 ML IVC ONE (14:25)
[2017-08-23] MEDS ORDERED: Tdap (Boostrix) Vaccine 0.5 ML SYRINGE IM ONE (15:08)
--- NOTE | 2017-08-23 15:08 | Emergency Department Note ---
Disposition Clinical Impression: Difficulty swallowing Syncope Qualifiers: Syncope type: unspecified Qualified Code(s): R55 - Syncope and collapse Disposition: Admitted As Inpatient Condition: Fair Referrals: Trav Garcia MD [Primary Care Provider] - Forms: ED Satisfaction Letter Time of Disposition: 16:42 General Adult HPI - General Chief complaint: ED Syncope Stated complaint: Syncopal episode Time Seen by Provider: 08/23/17 12:50 Source: patient Limitations: no limitations - History of Present Illness Pain Scale: 9 - Related Data Home Medications Medication Instructions Recorded Confirmed Albuterol Sulfate [Proair Hfa] 2 puff IH Q4-6H PRN 09/28/15 08/23/17 Budesonide/Formoterol 160/4.5 2 puff IH BIDR 06/11/16 08/23/17 [Symbicort 160/4.5] Gabapentin [Neurontin] 300 mg PO TID PRN 03/13/17 08/23/17 Cilostazol [Pletal] 100 mg PO BID 03/14/17 08/23/17 Lovastatin [Mevacor] 20 mg PO HS 03/14/17 08/23/17 Umeclidinium [place] [Incruse 1 puff IH DAILY 03/14/17 08/23/17 Ellipta] Lisinopril [Zestril] 40 mg PO DAILY 08/23/17 08/23/17 Previous Rx's Medication Instructions Recorded Aspirin [Lo-Dose Aspirin EC] 81 mg PO DAILY #30 tablet. 06/12/16 Clopidogrel Bisulfate [Plavix] 75 mg PO DAILY #30 tablet 06/12/16 Omeprazole [PriLOSEC] 20 mg PO DAILY #30 capsule. 03/14/17 Fluticasone Propionate Nasal 2 spray NS DAILY #1 bottle 08/20/17 [Flonase] predniSONE [PredniSONE] 20 mg PO DAILY 5 Days #7 tablet 08/20/17 Allergies Allergy/AdvReac Type Severity Reaction Status Date / Time bupropion [From Wellbutrin] AdvReac Agitated Verified 08/23/17 14:27 hydrocodone [From [place]] AdvReac Nausea Verified 08/23/17 14:27 pregabalin [From [place]] AdvReac Nausea Verified 08/23/17 14:27 Constitutional: Denies: fever, chills Cardiovascular: Reports: chest pain. Denies: palpitations Respiratory: Reports: dyspnea. 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 - Social History Smoking Status: Current every day smoker Smokeless Tobacco Status: No Alcohol use: Reports: none Drug use: Reports: none Physical Exam - General Limitations: no limitations General appearance: other (Appears uncomfortable) Course Vital Signs Temperature 97.8 F 08/23/17 12:49 Pulse Rate 111 08/23/17 12:49 Respiratory Rate 16 08/23/17 12:49 Blood Pressure 112/68 08/23/17 12:49 O2 Sat by Pulse Oximetry 96 08/23/17 12:49 Temperature 97.8 F 08/23/17 12:49 Pulse Rate 86 08/23/17 16:05 Respiratory Rate 16 08/23/17 16:05 Blood Pressure 104/58 08/23/17 16:05 O2 Sat by Pulse Oximetry 96 08/23/17 16:05 Oxygen Delivery Oxygen Delivery Room Air Medical Decision Making - Lab Data Result diagrams: 08/23/17 13:24 08/23/17 13:24 Lab Results 08/23/17 08/23/17 08/23/17 Range/Units 13:23 13:24 13:24 WBC 8.8 (4.3-11.1) K/mcL RBC 4.21 (3.82-4.97) M/mcL Hgb 13.1 (11.5-15.4) g/dL Hct 38.7 (35.3-44.9) % MCV 91.9 (83.0-100.0) fL MCH 31.1 (28.0-33.3) pg MCHC 33.9 (31.6-35.5) g/dL RDW 13.3 (11.5-14.5) % Plt Count 283 (140-400) K/mcL MPV 9.5 (9.4-12.4) fL Immature Gran % 0.5 (0-4) % Seg Neutrophils % 79.6 % Lymphocytes % 16.7 % Monocytes % 2.7 % Eosinophils % 0.2 % Basophils % 0.3 % Neutrophils # 7.0 (1.6-8.9) K/mcL Lymphocytes # 1.5 (0.6-4.6) K/mcL Monocytes # 0.2 (0.0-1.3) K/mcL Eosinophils # 0.0 (0.0-0.6) K/mcL Basophils # 0.0 (0.0-0.2) K/mcL PT 9.1 L (9.4-12.1) Seconds INR 0.9 APTT 30.5 (26.0-36.0) Seconds D-Dimer 468 (0-500) ng/mLFEU Sodium (136-145) mEq/L Potassium (3.5-5.1) mEq/L Chloride (98-107) mEq/L Carbon Dioxide (23-29) mEq/L BUN (6-20) mg/dL Creatinine (0.60-1.20) mg/dL Est GFR ( Amer) (> 60) Est GFR (Non-Af Amer) (> 60) BUN/Creatinine Ratio (6-26) Glucose (70-105) mg/dL Calculated Osmolality (280-300) Calcium (8.6-10.3) mg/dL Troponin I (< 0.04) ng/mL B-Natriuretic Peptide 96 (Less than 100) pg/mL Urine Color (Yellow) Urine Clarity (Clear) Urine pH (5.0-8.0) pH Units Ur Specific [place] (1.010-1.025) Urine Protein (Neg-Trace) mg/dL Urine Glucose (UA) (Normal) mg/dL Urine Ketones (Negative) mg/dL Urine Blood (Negative) Urine Nitrite (Negative) Urine Bilirubin (Negative) Urine Urobilinogen (Normal) mg/dL Ur Leukocyte Esterase (Negative) 08/23/17 08/23/17 Range/Units 13:24 13:50 WBC (4.3-11.1) K/mcL RBC (3.82-4.97) M/mcL Hgb (11.5-15.4) g/dL Hct (35.3-44.9) % MCV (83.0-100.0) fL MCH (28.0-33.3) pg MCHC (31.6-35.5) g/dL RDW (11.5-14.5) % Plt Count (140-400) K/mcL MPV (9.4-12.4) fL Immature Gran % (0-4) % Seg Neutrophils % % Lymphocytes % % Monocytes % % Eosinophils % % Basophils % % Neutrophils # (1.6-8.9) K/mcL Lymphocytes # (0.6-4.6) K/mcL Monocytes # (0.0-1.3) K/mcL Eosinophils # (0.0-0.6) K/mcL Basophils # (0.0-0.2) K/mcL PT (9.4-12.1) Seconds INR APTT (26.0-36.0) Seconds D-Dimer (0-500) ng/mLFEU Sodium 134 L (136-145) mEq/L Potassium 4.7 (3.5-5.1) mEq/L Chloride 105 (98-107) mEq/L Carbon Dioxide 24 (23-29) mEq/L BUN 27 H (6-20) mg/dL Creatinine 1.66 H (0.60-1.20) mg/dL Est GFR ( Amer) 38 L (> 60) Est GFR (Non-Af Amer) 32 L (> 60) BUN/Creatinine Ratio 16 (6-26) Glucose 120 H (70-105) mg/dL Calculated Osmolality 284 (280-300) Calcium 9.2 (8.6-10.3) mg/dL Troponin I < 0.03 (< 0.04) ng/mL B-Natriuretic Peptide (Less than 100) pg/mL Urine Color Yellow (Yellow) Urine Clarity Clear (Clear) Urine pH 6.0 (5.0-8.0) pH Units Ur Specific [place] 1.011 (1.010-1.025) Urine Protein Negative (Neg-Trace) mg/dL Urine Glucose (UA) Normal (Normal) mg/dL Urine Ketones Negative (Negative) mg/dL Urine Blood Negative (Negative) Urine Nitrite Negative (Negative) Urine Bilirubin Negative (Negative) Urine Urobilinogen Normal (Normal) mg/dL Ur Leukocyte Esterase Negative (Negative) Attestation Statement - Attestation Attestation: I, Choco Dodd DO, examined this patient [id number] and my medical decision-making was reviewed with Dr. Donovan Linares, Resident Physician. I agree with the documented findings, disposition and treatment plan as described except to the extent set forth below. Please see my progress notes for details. Patient presents emergency room by personal vehicle for evaluation of a syncopal event. Over the last week the patient has been describing dizziness lightheadedness and some difficulty with swallowing. Patient noticed this morning that she was having more difficulty with swallowing and previous. Patient is at the gas station today pumping gas and passed out without any prodromal symptoms. Patient did feel lightheaded prior to but that was not new at the time. Family was called immediately in the pick the patient up at the gas station. She is approximately L4-5 minutes. Patient woke up spontaneously without intervention. Family drove her here to the emergency room for evaluation. During transport the patient was difficult to keep awake. On presentation here her vital signs were stable. Patient instructed to the bed without any complication. She does have chronic issues in her left side of her back. patient does not recall she had her head. She does have abrasion to left side of her posterior chest wall. She has had pain in her left hip from the fall. Patient is alert she is oriented she speaks in full sentences. She does not have any slurred speech or changes in mentation this time. There is no visible signs of facial asymmetry or trauma this point. She has no midline tenderness to cervical thoracic or lumbar spine. There is abrasion to left lateral chest wall. No crepitus or deformity noted to the chest wall this time. Lungs are clear to auscultation bilaterally heart is regular. Patient's oropharynx is patent. She does have dry mucous membranes. She has no pain with movement of the neck. She does have some tightness in the right anterior chest wall similar to previous. Patient uses her upper extremities no signs of cerebellar dysfunction or abnormality. Shows appropriate cranial nerve function with evaluation of 3 through 12. She has normal flexion extension of the upper extremities. She has difficulty with flexion of the left hip secondary to chronic issues. She does have a vascular issue in her left lower extremities requires stenting. She has pulses are appreciable in the bilateral feet. Patient symptom onset with the dizziness difficulty with swallowing of been good in the week. The syncopal event here today is new. She does have what she describes as tingling or numbness to left side of her face. It does cross the midline. She has no signs of facial asymmetry. She also describes some slight blurry vision in her left eye. She has no visual field deficits at this point. Patient is concerning for previous stroke with deficits noted today. She is not a acute stroke based on the time frame and no distinct last known well. Patient will be evaluated with EKG, CT of the head, chest x-ray, labs including CBC chemistry troponin electrolytes urinalysis patient also had magnesium and calcium collected at this time. Patient otherwise is clinically stable. She does have a history of chronic renal insufficiency. Patient may have been dehydrated today as well. Disposition will most likely be admission to hospital once full workup and treatment course are completed. See detailed documentation of the physical exam, medical intervention, NIH stroke scale, medical decision-making and disposition in the resident physician's note. No critical care provider the patient's treatment course at this time. 1500 Repeat discussion was had with the family. They do confirm the time frame of being almost 1 week with the preceding symptoms here today. Because of the context of this presentation patient will have MRIs considering her renal function is poor. She is not a candidate for CT angiography of the head neck at this point. Patient will be monitored in emergency room until the MRIs are completed and disposition will be determined. Admission process will be established once imaging labs are reviewed 162 MRI of the head and neck unremarkable for acute signs of vascular ischemia or stroke. Patient will be admitted at this time for evaluation of the dizziness, dysphagia, syncope will also be addressed here. Patient is otherwise currently stable the time of admission.
[2017-08-23] MEDS ORDERED: Naloxone 0.4 MG/ML INJ IVP PRN (17:53)
--- NOTE | 2017-08-23 19:45 | Internal Med History&Physical ---
Date of Encounter: 08/23/17 Time of Encounter: 17:00 Internal Medicine - H&P: HPI Chief complaint: Syncope Admitted From: Emergency Dept Plans for Post Hospital Care: Home History of present illness: Ms. Garcia is a 57 year old female w/PMH of COPD, GERD, HTN, CKD, PAD, and current tobacco abuse presents from the ED w/CC of syncopal episode while at the gas station today. Pt. states she began having numbness to the left face and around her mouth, blurry vision in left eye, and loss of peripheral vision in left eye prior to syncope. Reports hitting head and left hip. No aggravating or alleviating factors. Pt. also reports chest pressure, SOB, and inability to swallow for one week. Denies previous occurrence or hx of CVA/TIA. Denies recent cardiac w/u. Reports having only one kidney and currently has CKD stage 3 in remaining kidney. Pt. denies recent illness, fever, chills, nausea, vomiting, abdominal pain, diarrhea, constipation, unusual bleeding, cough, or chest congestion. Past Med Surg Social Fam HX - Past Medical History Source: patient, old records reviewed, obtained from family Medical history: COPD, GERD, hyperlipidemia, hypertension, renal disease, other Psychiatric history: no psych history - Past Surgical History Surgical History: hysterectomy, orthopedic, other - Social History Smoking Status: Current every day smoker Packs per day: 1- 1.5 PPD Smokeless Tobacco Status: No Alcohol use: none Drug use: none Current living situation: Home, With Family Activity Level: Independent ambulation Recent Out of Country Travel Within the Last 8 Weeks: No Exposure or Possible Exposure to Illness During Travel: No - Family History Father History Unknown: Yes Race: Family Member Ethnicity: Non- Living Status: Still Living Hx Family Endocrine Disorder: Yes (DM) Mother Adopted: No Race: Family Member Ethnicity: Non- Twin of Family Member: Yes, Fraternal Living Status: Still Living Hx Family Cardiac Disorders: Yes (HTN) Hx Family GI Disorders: Yes (Celiac) Brother Race: Family Member Ethnicity: Non- Living Status: Still Living Hx Family Cardiac Disorders: Yes (HD, CHF, HTN) Sister Race: Family Member Ethnicity: Non- Living Status: Still Living Hx Family Cardiac Disorders: Yes (HTN) Hx Family GI Disorders: Yes (Celiac) Internal Medicine - H&P: Meds Albuterol Sulfate [Proair Hfa] 2 puff IH Q4-6H PRN 09/28/15 [History] Budesonide/Formoterol 160/4.5 [Symbicort 160/4.5] 2 puff IH BIDR 06/11/16 [ History] Aspirin [Lo-Dose Aspirin EC] 81 mg PO DAILY #30 tablet. 06/12/16 [Rx] Clopidogrel Bisulfate [Plavix] 75 mg PO DAILY #30 tablet 06/12/16 [Rx] Gabapentin [Neurontin] 300 mg PO TID PRN 03/13/17 [History] Cilostazol [Pletal] 100 mg PO BID 03/14/17 [History] Lovastatin [Mevacor] 20 mg PO HS 03/14/17 [History] Omeprazole [PriLOSEC] 20 mg PO DAILY #30 capsule. 03/14/17 [Rx] Umeclidinium [place] [Incruse Ellipta] 1 puff IH DAILY 03/14/17 [History] Fluticasone Propionate Nasal [Flonase] 2 spray NS DAILY #1 bottle 08/20/17 [Rx] predniSONE [PredniSONE] 20 mg PO DAILY 5 Days #7 tablet 08/20/17 [Rx] Lisinopril [Zestril] 40 mg PO DAILY 08/23/17 [History] 3 Allergy/AdvReac Type Severity Reaction Status Date / Time bupropion [From Wellbutrin] AdvReac Agitated Verified 08/23/17 14:27 hydrocodone [From [place]] AdvReac Nausea Verified 08/23/17 14:27 pregabalin [From Lyrica] AdvReac Nausea Verified 08/23/17 14:27 All Systems PM: A 10-system review of systems was performed and is negative for pertinent findings except as documented above in the HPI. - Constitutional Constitutional: as per HPI, fatigue, weakness, no chills, no fever(s), no night sweats - EENT Eyes: no change in vision, no discharge, no pain, no photophobia Ears: no ear discharge, no ear pain, no tinnitus Nose, mouth and throat: no dysphagia, no nasal discharge, no neck pain, no sore throat - Breasts Breasts: as per HPI - Cardiovascular Cardiovascular ROS IM: as per HPI, chest pain, dyspnea, syncope, no diaphoresis , no lightheadedness, no palpitations - Respiratory Respiratory: dyspnea, no cough, no wheezing, no excessive phlegm production - Gastrointestinal Gastrointestinal: no abdominal pain, no diarrhea, no hematemesis, no hematochezia, no melena, no nausea, no vomiting - Genitourinary Genitourinary: no change in urinary stream, no dysuria, no flank pain, no hematuria Menstruation: as per HPI - Musculoskeletal Musculoskeletal ROS IM: as per HPI, numbness (Left face and around mouth), tingling (Left face and around mouth) - Integumentary Integumentary IM: no rash, no unusual bruising - Neurological Neurological ROS: as per HPI, numbness, tingling, weakness, other (Syncope), no confusion, no convulsions, no focal weakness, no tremor(s) - Psychiatric Psychiatric: as per HPI - Endocrine Endocrine IM: as per HPI - Hematologic/Lymphatic Hematologic/Lymphatic: no easy bruising - Allergic/Immunologic Allergic/Immunologic: as per HPI - Constitutional Vitals: Temp Pulse Resp BP Pulse Ox 97.8 F 87 14 120/80 97 08/23/17 19:16 08/23/17 19:16 08/23/17 19:16 08/23/17 19:16 08/23/17 19:16 General appearance: Present: cooperative, mild distress, A&O X 3, pleasant, obese, answers questions appropriately - Head Head exam: Present: atraumatic, normocephalic - Eye Eye exam: Present: PERRL, conjuntiva pink, sclera anicteric Pupils: Present: PERRL - ENT ENT exam: Present: normal exam - Neck Neck exam general surgery: Present: supple, trachea midline. Absent: lymphadenopathy - Respiratory Respiratory exam: Present: CTAB. Absent: accessory muscle use, rales, rhonchi, wheezes - Cardiovascular Cardiovascular exam: Present: RRR, +S1, +S2. Absent: diastolic murmur, gallop, rubs, systolic murmur - GI/Abdominal GI/Abdominal exam: Present: normal bowel sounds, soft, no peritoneal signs. Absent: distended, tenderness - Rectal Rectal exam: Present: deferred - Additional comments: exam deferred. - Extremities Exam Extremities exam: Present: warm, radial pulses palpable and symmetrical. Absent : calf tenderness, cyanotic, pedal edema - Back Exam Back exam: Present: normal inspection - Neurological Exam Neurological exam: Present: CN II-XII intact, oriented X3, no focal deficits. Absent: pronater drift, facial droop, speech deficit - Psychiatric Psychiatric exam: Present: normal affect, normal mood - Skin Skin exam: Present: dry, intact Internal Med - H&P Results - Labs CBC & Chem 7: 08/23/17 13:24 08/23/17 13:24 - EKG Data EKG shows normal: sinus rhythm - EKG Data Prior EKG available for review: yes EKG comments: 08/23/17 20:07 EKG dated 08/23/17 12:47 shows sinus rhythm with occasional ectopic premature complexes. EKG dated 08/23/17 14:22 shows sinus rhythm and normal ECG. - Diagnostic Studies Chest x-ray Additional comments: Impressions Chest X-Ray 08/23/17 12:51 IMPRESSION: No acute process. D/ / Jesse Mcclain MD / Jesse Mcclain MD Interpreting Provider: Jesse Mcclain MD CT scan - head Additional comments: Impressions Head CT 08/23/17 12:51 IMPRESSION: No acute intracranial abnormality. No change from prior. D/ / Jeremiah Tavares MD / Jeremiah Tavares MD Interpreting Provider: Jeremiah Tavares MD MRI - head Additional comments: Impressions Brain MRI 08/23/17 14:28 IMPRESSION: No acute infarct. No flow limiting stenosis or branch occlusion detected within the head or neck. Possible aneurysm of the right cavernous ICA. Consider CTA of the head for further evaluation. D/ / Mick Ojeda MD / Mick Ojeda MD Interpreting Provider: Mick Ojeda MD Other Images Additional comments: Impressions Cervical Spine CT 08/23/17 13:07 IMPRESSION: No acute abnormality of the cervical spine. D/ / Mega Edwards MD / Mega Edwards MD Interpreting Provider: Mega Edwards MD Pelvis X-Ray 08/23/17 13:07 IMPRESSION: No acute osseous abnormality. D/ / Lakshmi Hernandez MD / Lakshmi Hernandez MD Interpreting Provider: Lakshmi Hernandez MD Neck MRA 08/23/17 14:39 IMPRESSION: No acute infarct. No flow limiting stenosis or branch occlusion detected within the head or neck. Possible aneurysm of the right cavernous ICA. Consider CTA of the head for further evaluation. D/ / Mick Ojeda MD / Mick Ojeda MD Interpreting Provider: Mick Ojeda MD Head MRA 08/23/17 15:39 IMPRESSION: No acute infarct. No flow limiting stenosis or branch occlusion detected within the head or neck. Possible aneurysm of the right cavernous ICA. Consider CTA of the head for further evaluation. D/ / Mick Ojeda MD / Mick Ojeda MD Interpreting Provider: Mick Ojeda MD - Assessment and plan (1) Syncope Current Visit: Yes Status: Acute Assessment and plan: Acute syncope today while [place] the gas station today. Pt. states she began having numbness to the left face and around her mouth, blurry vision in left eye, and loss of peripheral vision in left eye prior to syncope. Denies previous sx. MRA of head/neck shows no acute infarct. No flow-limiting stenosis or branch occlusion detected within the head or neck. Possible aneurysm of the right cavernous ICA. Consider CT of the head for further evaluation. CTA cannot be done d/t current renal dysfunction. Several images ordered due to fall. XR pelvis shows no acute osseous abnormality. CT cervical spine shows no acute abnormality of the cervical spine. CT of the head/brain shows no acute intracranial abnormality and no change from prior. NIHSS. Padding to bed rails. VS checks every 15 minutes 4, every 30 minutes 2, every hour 2, then every 4 hours. Neurologic checks Q2HR. Neurology consult ordered in ED and I appreciate the consult. GI consult ordered d/t current dysphagia x1 week. Echocardigram. Bilateral carotid Dopplers. NPO until Speech Therapy dysphagia screen passed. Falls/safety precautions, up with assist, bed rest w/bedside commode w/assist only. PT/OT/Speech Therapy consult ordered. Pt. discussed w/ Dr. Mcbride who agrees w/plan of care. Pt. is high risk for neurologic decline and further morbidity d/t current neurologic sx resulting in syncope, facial numbness/weakness, current dysphagia for the past week, hx, and current tobacco abuse. Inpatient. Qualifiers: Syncope type: unspecified Qualified Code(s): R55 - Syncope and collapse (2) Difficulty swallowing Current Visit: Yes Status: Acute Assessment and plan: Acute difficulty w/swallowing for the past week. Pt. reports hx of polyp removal from her esophagus years ago. Sx began a week ago. GI consult ordered to assess for possible endoscopy to r/o oropharyngeal dysphagia versus esophageal dysphasia. A.M. team to f/u on consult. NPO status until Speech Therapy dysphagia screen passed. Will administer medications IVP for now. Qualifiers: Dysphagia type: other dysphagia Qualified Code(s): R13.19 - Other dysphagia (3) Left facial numbness Current Visit: Yes Status: Acute Assessment and plan: Acute left facial numbness/weakness. Also numbness around mouth. Pt. states sx started today prior to becoming syncopal. Denies previous sx. CTA of the head/ brain recommended but cannot be completed d/t current renal dysfunction. NIHSS. Padding to bed rails. VS checks every 15 minutes 4, every 30 minutes 2, every hour 2, then every 4 hours. Neurologic checks Q2HR. Neurology consult ordered in ED and I appreciate the consult. Echocardigram. Bilateral carotid Dopplers. NPO until Speech Therapy dysphagia screen passed. Falls/safety precautions, up with assist, bed rest w/bedside commode w/assist only. PT/OT/Speech Therapy consult ordered. (4) Tobacco abuse counseling Current Visit: Yes Status: Acute Assessment and plan: Acute tobacco abuse counseling. Pt. currently smokes 1-1.5 PPD. Dicussed how nicotine is a vasoconstrictor and what smoking does to her vasculature and heart. Pt. Stated that she would like to quit now but is unable to use nicotine patches d/t skin irritation. Will order nicotine gum when pt. passes Speech Therapy dysphagia screening. (5) CKD (chronic kidney disease), stage III Current Visit: Yes Status: Chronic Assessment and plan: Hx of chronic CKD. Currently stage 3 w/GFR of 32 and creatinine of 1.66 on admission. Will use IV fluids judiciously and avoid nephrotoxins. Monitor I&O and daily weight. (6) COPD (chronic obstructive pulmonary disease) Current Visit: Yes Status: Chronic Assessment and plan: Hx of chronic COPD. Stable. DuoNebs Q6HR PRN. Supplemental O2 w/titration and SpO2 monitoring. Qualifiers: COPD type: unspecified COPD Qualified Code(s): J44.9 - Chronic obstructive pulmonary disease, unspecified (7) HTN (hypertension) Current Visit: Yes Status: Chronic Assessment and plan: Hx of chronic HTN. Monitor pt. and VS. Pt. unable to take PO medications d/t difficulty swallowing. Will add hydralazine 10 mg IVP Q6HR PRN if SBP >180 and/ or DBP >110. Qualifiers: Hypertension type: essential hypertension Qualified Code(s): I10 - Essential (primary) hypertension (8) DVT prophylaxis Current Visit: Yes Status: Acute Assessment and plan: Heparin 5,000 SQ Q8HR for DVT prophylaxis. Monitor pt. for signs of bleeding. - Time Spent With Patient Total time spent is greater than 50% in coordination of care (as documented) at patient's floor/unit and/or counseling patient: Greater than 35 minutes
[2017-08-23] MEDS ORDERED: Ipratropium/Albuterol Neb 3 ML IH PRN (20:35)
[2017-08-23] MEDS: *HR* Heparin 5,000 UNIT/ML VIAL SQ SCH (21:18)
[2017-08-23] MEDS: 0.9 % Sodium Chloride 1,000 ML IVC SCH (21:19)
[2017-08-24 02:25] LABS: Basophils % 0.4 %; Eosinophils # 0.1 K/mcL (0.0-0.6); Eosinophils % 0.6 %; Hematocrit 34.4 % (35.3-44.9); Hemoglobin 11.7 g/dL (11.5-15.4); Immature Granulocytes % 0.3 % (0-4); Lymphocytes # 3.7 K/mcL (0.6-4.6); Lymphocytes % 33.2 %; Mean Corpuscular Hemoglobin 31.4 pg (28.0-33.3); Mean Corpuscular Volume 92.2 fL (83.0-100.0); Mean Platelet Volume 10.2 fL (9.4-12.4); Monocytes # 0.8 K/mcL (0.0-1.3); Monocytes % 7.4 %; Neutrophils # 6.5 K/mcL (1.6-8.9); Platelet Count 211 K/mcL (140-400); Red Blood Count 3.73 M/mcL (3.82-4.97); Red Cell Distribution Width 13.3 % (11.5-14.5); Segmented Neutrophils % 58.1 %
[2017-08-24 02:28] LABS: INR 0.9
[2017-08-24 02:29] LABS: Activated Partial Thrombo Time 29.9 Seconds (26.0-36.0)
[2017-08-24 02:46] LABS: Albumin 3.6 g/dL (3.5-5.7); Albumin/Globulin Ratio 1.7 (1.1-2.2); Bilirubin,Total 0.4 mg/dL (0.3-1.0); Calcium 9.1 mg/dL (8.6-10.3); Chol/HDL Ratio 2.6 (0-4.9); Globulin 2.1 g/dL (2.4-3.5); Magnesium 2.1 mg/dL (1.6-2.6); Potassium 3.9 mEq/L (3.5-5.1); Total Protein 5.7 g/dL (6.4-8.9)
[2017-08-24] MEDS: *HR* Heparin 5,000 UNIT/ML VIAL SQ SCH ×3 (06:01→20:34)
[2017-08-24] MEDS: Aspirin 81 MG TAB.CHEW PO SCH (11:58)
--- NOTE | 2017-08-24 16:11 | Neurology - Consult Note ---
Date of Encounter: 08/24/17 Time of Encounter: 15:09 Assessment and Plan (1) Syncope Current Visit: Yes Status: Acute Patient seems to have a cardiogenic syncope no history to be suggestive of any seizure, she did have some present proceeding symptoms before the event which likely related to a cardiogenic syncope I recommended cardiac workup for the syncope. Though we can do an EEG but do not think that will be helpful in the current context. No indication for start her on any antiepileptic medication at this time. MRI of the brain already been negative for any acute intracranial findings. MRA of the brain did shows some concern off follow-up right cavernous ICA aneurysm we will get a CT angiogram further localize it. Do not think that it is related to her current symptoms likely an incidental finding no evidence of any bleed. Suggest to continue on antiplatelet therapy. Also recommend checking her orthostatic blood pressure like to the cause of her symptoms. Increase oral fluid intake she may benefit from some IV fluids. Other treatment is as per primary team Qualifiers: Syncope type: unspecified Qualified Code(s): R55 - Syncope and collapse (2) Lightheadedness Current Visit: No Status: Acute History of Present Illness HPI: Ms. Garcia is a 57 year old female with PMH of COPD, GERD, HTN, CKD, PAD, and current tobacco abuse presents from the ED w/CC of syncopal episode while [place] the gas station, Pt. states she began having numbness to the left face and around her mouth, blurry vision in left eye, and loss of peripheral vision in left eye prior to passing out, she Reports hitting head and left hip. Pt. also reports chest pressure, SOB, and inability to swallow for one week. Denies previous occurrence or hx of CVA. she has only one kidney and currently has CKD stage 3 in remaining kidney. Pt. denies recent illness, fever, chills, nausea, vomiting, abdominal pain, diarrhea, constipation, unusual bleeding, cough, or chest congestion. Denies any history of seizures currently denies any focal motor weakness. Before passing out she did felt dizzy and lightheaded and she felt that she is going to passed out she was tried to hold onto something but she was not able to do so and that she passed out there was no witnessed jerking shaking or any convulsive activity reported she also denies any did not bite or any urinary incontinence Past Med Surg Social Fam HX - Past Medical History Medical history: COPD, GERD, hyperlipidemia, hypertension, renal disease, other Psychiatric history: no psych history - Past Surgical History Surgical History: hysterectomy, orthopedic, other - Social History Smoking Status: Current every day smoker Packs per day: 1- 1.5 PPD Smokeless Tobacco Status: No Alcohol use: none Drug use: none - Family History Father History Unknown: Yes Race: Family Member Ethnicity: Non- Living Status: Still Living Hx Family Cancer: Yes Hx Family Endocrine Disorder: Yes (DM) Mother Adopted: No Race: Family Member Ethnicity: Non- Twin of Family Member: Yes, Fraternal Living Status: Still Living Hx Family Cardiac Disorders: Yes (HTN) Hx Family Respiratory Disorders: No Hx Family Cancer: Yes Hx Family GI Disorders: Yes (Celiac) Hx Family Endocrine Disorder: Yes (dad dm) Hx Family Neuromuscular Disorders: No Hx Family Neurologic Disorders: No Hx Family HEENT Disorders: No Hx Family Autoimmune Disorders: No Brother Race: Family Member Ethnicity: Non- Living Status: Still Living Hx Family Cardiac Disorders: Yes (HD, CHF, HTN) Sister Race: Family Member Ethnicity: Non- Living Status: Still Living Hx Family Cardiac Disorders: Yes (HTN) Hx Family GI Disorders: Yes (Celiac) Medications and Allergies Albuterol Sulfate [Proair Hfa] 2 puff IH Q4-6H PRN 09/28/15 [History] Budesonide/Formoterol 160/4.5 [Symbicort 160/4.5] 2 puff IH BIDR 06/11/16 [ History] Aspirin [Lo-Dose Aspirin EC] 81 mg PO DAILY #30 tablet. 06/12/16 [Rx] Clopidogrel Bisulfate [Plavix] 75 mg PO DAILY #30 tablet 06/12/16 [Rx] Gabapentin [Neurontin] 300 mg PO TID PRN 03/13/17 [History] Cilostazol [Pletal] 100 mg PO BID 03/14/17 [History] Lovastatin [Mevacor] 20 mg PO HS 03/14/17 [History] Omeprazole [PriLOSEC] 20 mg PO DAILY #30 capsule. 03/14/17 [Rx] Umeclidinium [place] [Incruse Ellipta] 1 puff IH DAILY 03/14/17 [History] Fluticasone Propionate Nasal [Flonase] 2 spray NS DAILY #1 bottle 08/20/17 [Rx] predniSONE [PredniSONE] 20 mg PO DAILY 5 Days #7 tablet 08/20/17 [Rx] Lisinopril [Zestril] 40 mg PO DAILY 08/23/17 [History] 3 Allergy/AdvReac Type Severity Reaction Status Date / Time bupropion [From Wellbutrin] AdvReac Agitated Verified 08/23/17 14:27 hydrocodone [From [place]] AdvReac Nausea Verified 08/23/17 14:27 pregabalin [From [place]] AdvReac Nausea Verified 08/23/17 14:27 All Systems: The remainder of the systems were reviewed and are negative Physical Examination - Vital Signs Vital Signs: Initial Vital Signs Temp Pulse Resp BP Pulse Ox 97.8 F 111 16 112/68 96 08/23/17 12:49 08/23/17 12:49 08/23/17 12:49 08/23/17 12:49 08/23/17 12:49 - Exam Exam: GENERAL: Comfortable in no acute distress HEENT: Normal LUNGS: CTA HEART: RRR, S1 S2 Audible, no murmur EXTREMITIES: No Pedal edema. DETAILED NEUROLOGICAL EXAMINATION: MENTAL STATUS: Oriented to person, place, date and situation. Memory: knows the President, Aware of recent events Recent Memory Intact Cranial Nerve Examination: CN - II: Visual Acuity, Field of Vision Normal, Fundus examination: No disk edema, Pupils- size shape reaction to light and accommodation: All normal. CN III, IV, : External ocular movements were intact, Pupils were reactive, Nodrooping of the eyelids CN V: Sensation over the face to light touch and pinprick all normal. Corneal reflexes not tested, jaw jerk normal. CN VII: No facial asymmetry, no flattening of nasolabial folds, no difficulty in closing the eyes, no loss of forehead wrinkles, no difficulty in eye-closure, frowning raising eyebrows. CNVIII: No significant hearing loss CN IX, X: Uvula centralized not deviated, Gag reflex: Not tested CN X1: Sternocleidomastoid, trapezius, normal or evidence of any weakness. CN X11: No Dysarthria, no wasting or fibrilation f tongue muscles, no deviation, tongue muscle strength normal. Motor examination: No hypertrophy, tone was normal, power grade 0-5 Upper limbs Proximal- No difficulty in lifting the arms above the head. Distal- No weakness in distal muscles On formal testing 5/5 all over Lower limbs On formal testing 5/5 all over Coordination: [id number] normal. Target pursuit normal finger tapping normal, Rapid alternating moment of wrist normal Sensory system: Superficial sensations- Touch normal. Pain- Pinprick, Temperature all normal, Deep sensation normal, Joint position sense normal. Cortical sensation, Tactile discrimination, localization and extinction all normal. Deep tendon reflexes. Symmetrical bilateral, No evidence of Babinski. No sign of meningeal irritation Gait Examination: Deferred - Constitutional General appearance: comfortable Results - Laboratory Findings CBC and BMP: 08/24/17 01:02 08/24/17 01:02 Abnormal lab findings: Abnormal lab results RBC 3.73 M/mcL (3.82-4.97) L 08/24/17 01:02 Hct 34.4 % (35.3-44.9) L 08/24/17 01:02 Chloride 111 mEq/L (98-107) H 08/24/17 01:02 BUN 22 mg/dL (6-20) H 08/24/17 01:02 Creatinine 1.29 mg/dL (0.60-1.20) H 08/24/17 01:02 Est GFR ( Amer) 51 (> 60) L 08/24/17 01:02 Est GFR (Non-Af Amer) 42 (> 60) L 08/24/17 01:02 AST 7 Units/L (13-39) L 08/24/17 01:02 ALT 6 Units/L (7-52) L 08/24/17 01:02 Serum Total Protein 5.7 g/dL (6.4-8.9) L 08/24/17 01:02 Globulin 2.1 g/dL (2.4-3.5) L 08/24/17 01:02 - Diagnostic Findings Additional findings: MRI of the brain negative for any acute infarct. MRA of the neck also negative for any intra-or extracranial stenosis. MRA of the head shows concern of right cavernous ICA aneurysm CT angiogram of the head was recommended Consult Discharge Plan - Plan Referrals: Trav Garcia MD [Primary Care Provider] -
[2017-08-24 17:28] LABS: Folate 4.9 ng/mL (3.0-16.0)
--- NOTE | 2017-08-24 17:42 | Internal Med Progress Note ---
Date of Encounter: 08/24/17 Time of Encounter: 09:45 - Assessment and plan (1) CKD (chronic kidney disease), stage III Current Visit: Yes Status: Chronic Assessment and plan: Improved with IVF. Sr Cr 1.29, GFR 42. Avoid nephrotoxins Pt sees Dr. Zhu. (2) COPD (chronic obstructive pulmonary disease) Current Visit: Yes Status: Chronic Assessment and plan: Chronic. Stable.No acute exacerbation. Pt not on 02, lungs clear and diminished. DuoNebs Q6HR PRN. Supplemental O2 w/titration and SpO2 monitoring. Qualifiers: COPD type: unspecified COPD Qualified Code(s): J44.9 - Chronic obstructive pulmonary disease, unspecified (3) HTN (hypertension) Current Visit: Yes Status: Chronic Assessment and plan: Chronic. Continue home medications. Well controlled. Qualifiers: Hypertension type: essential hypertension Qualified Code(s): I10 - Essential (primary) hypertension (4) DVT prophylaxis Current Visit: Yes Status: Acute Assessment and plan: Heparin subcutaneous. Continue to encourage ambulation. (5) Tobacco abuse counseling Current Visit: Yes Status: Acute Assessment and plan: Smoking cessation counseling has been completed. Nicotine gum ordered. (6) Syncope Current Visit: Yes Status: Acute Assessment and plan: Pt has been evaluated by neurology today, recommends cardiac workup for syncope and suggest is related cardiogenic syncope. I appreciate his recommendations. Pt states that vision in left eye is still not back to baseline, but is better and she has regained her peripheral vision in left eye. Facial numbness has improved. Head CTA is still pending, brain MRI/MRA show no acute infarct, no flow- limiting stenosis. There was noted to have a possible aneurysm of right cavernous ICA, CTA of the head was ordered and completed for further evaluation. Plain head CT showed no acute intracranial abnormality and no change from prior. Echocardiogram and carotids are still pending. Patient has been evaluated by physical therapy, no need to anticipated at discharge. Continue antiplatelet therapy Orthostatic vital signs ordered and pending Increase by mouth fluid intake, gentle IV fluid hydration Qualifiers: Syncope type: unspecified Qualified Code(s): R55 - Syncope and collapse (7) Difficulty swallowing Current Visit: Yes Status: Acute Assessment and plan: Patient was evaluated by speech today, they believe that lying his esophageal problem that she may have some strictures. We will consult GI. Patient will be on a mechanical soft diet with thin liquids. Continue by mouth medications. Speech therapist worked with patient showing her tricks to be able to swallow food and drink Qualifiers: Dysphagia type: other dysphagia Qualified Code(s): R13.19 - Other dysphagia (8) Left facial numbness Current Visit: Yes Status: Acute Assessment and plan: Improving. Plan as above. (9) Abdominal pain Current Visit: Yes Status: Acute Assessment and plan: Patient reports epigastric and left upper quadrant swelling, tenderness. Both areas exquisitely tender to palpation. Patient reports the pain radiates around to left mid back. Patient reports constipation, though she did have a bowel movement yesterday. She states that primary care's treating her for constipation with MiraLAX. Abdomen and pelvis CT ordered. Patient is able to tolerate food and fluid. Qualifiers: Abdominal location: right lower quadrant Qualified Code(s): R10.31 - Right lower quadrant pain - Time Spent With Patient Total time spent is greater than 50% in coordination of care (as documented) at patient's floor/unit and/or counseling patient: less than 15 minutes - Subjective Interval history: Patient was seen and assessed at bedside at 9:45 AM. Son was at bedside. All questions were answered both verbalized understanding. Patient reports feeling numbness to her left face, left vision was blurry, as well as loss of peripheral vision yesterday, patient had syncopal episode. She reports that all symptoms are improving and that she has regained her left peripheral vision. She denies any headache, neck pain, chest pain or shortness of breath. No abdominal pain, nausea, vomiting, diarrhea. She denies any new peripheral edema. Patient reports recent constipation, though she did have a bowel movement yesterday and complains of upper abdominal pain, swelling. Tender to palpation. She reports that she has been seen by her primary care physician for this and told that she is constipated and was given MiraLAX without relief. - Constitutional Vitals: Temp Pulse Resp BP Pulse Ox 97.8 F 81 14 106/65 97 08/24/17 16:07 08/24/17 16:07 08/24/17 16:07 08/24/17 16:07 08/24/17 16:07 General appearance: Present: cooperative, mild distress, A&O X 3, pleasant, obese, answers questions appropriately - Head Head exam: Present: atraumatic, normal inspection, normocephalic - Eye Eye exam: Present: normal appearance, conjuntiva pink, sclera anicteric - Neck Neck exam general surgery: Present: normal inspection, supple, trachea midline. Absent: lymphadenopathy, tenderness - Respiratory Respiratory exam: Present: CTAB. Absent: accessory muscle use, chest wall tenderness, decreased breath sounds, rales, respiratory distress, rhonchi, wheezes - Cardiovascular Cardiovascular exam: Present: RRR, +S1, +S2. Absent: diastolic murmur, gallop, rubs, systolic murmur - GI/Abdominal GI/Abdominal exam: Present: distended, normal bowel sounds, soft, tenderness. Absent: hepatomegaly - Extremities Exam Extremities exam: Present: normal capillary refill, normal inspection, warm, radial pulses palpable and symmetrical. Absent: calf tenderness, cyanotic, pedal edema, tenderness - Neurological Exam Neurological exam: Present: alert, oriented X3, no focal deficits. Absent: facial droop, speech deficit - Skin Skin exam: Present: dry, intact, normal color, warm. Absent: rash Internal Medicine: Result - Labs CBC & Chem 7: 08/24/17 01:02 08/24/17 01:02 Labs: Short CBC 08/24/17 Range/Units 01:02 WBC 11.1 (4.3-11.1) K/mcL Hgb 11.7 (11.5-15.4) g/dL Hct 34.4 L (35.3-44.9) % Plt Count 211 (140-400) K/mcL Neutrophils # 6.5 (1.6-8.9) K/mcL BMP 08/24/17 01:02 Sodium 139 Potassium 3.9 Chloride 111 H Carbon Dioxide 23 BUN 22 H Creatinine 1.29 H Glucose 82 Calcium 9.1 Cardiac Enzymes 08/23/17 08/24/17 Range/Units 20:13 01:02 Troponin I < 0.03 < 0.03 (< 0.04) ng/mL Liver Function 08/24/17 Range/Units 01:02 Total Bilirubin 0.4 (0.3-1.0) mg/dL AST 7 L (13-39) Units/L ALT 6 L (7-52) Units/L Alkaline Phosphatase 77 (34-104) Units/L Albumin 3.6 (3.5-5.7) g/dL - ABG Interpretation ABG results: PT/INR, D-dimer PT 10.0 Seconds (9.4-12.1) 08/24/17 01:02 D-Dimer 468 ng/mLFEU (0-500) 08/23/17 13:24 Consult Discharge Plan - Plan Referrals: Trav Garcia MD [Primary Care Provider] -
[2017-08-24] MEDS ORDERED: Nicotine 2 MG GUM BC PRN (17:47)
[2017-08-24] MEDS ORDERED: Ondansetron 4 MG/2 ML VIAL IVP PRN (20:05)
[2017-08-24] MEDS: 0.9 % Sodium Chloride 1,000 ML IVC SCH (20:13)
[2017-08-24] MEDS: OXYCODONE Oral CONC 10 MG/0.5 ML ORAL.SYG SL PRN (20:35)
[2017-08-25] MEDS: *HR* Heparin 5,000 UNIT/ML VIAL SQ SCH ×3 (06:16→20:29)
[2017-08-25] MEDS: OXYCODONE Oral CONC 10 MG/0.5 ML ORAL.SYG SL PRN (06:17)
[2017-08-25 06:32] LABS: Basophils # 0.1 K/mcL (0.0-0.2); Basophils % 0.9 %; Eosinophils # 0.3 K/mcL (0.0-0.6); Eosinophils % 3.8 %; Hematocrit 35.9 % (35.3-44.9); Hemoglobin 11.5 g/dL (11.5-15.4); Immature Granulocytes % 0.2 % (0-4); Lymphocytes # 5.5 K/mcL (0.6-4.6); Lymphocytes % 65.5 %; Mean Corpuscular Hemoglobin 29.9 pg (28.0-33.3); Mean Corpuscular Volume 93.5 fL (83.0-100.0); Mean Platelet Volume 9.8 fL (9.4-12.4); Monocytes # 0.6 K/mcL (0.0-1.3); Monocytes % 7.3 %; Neutrophils # 1.9 K/mcL (1.6-8.9); Platelet Count 243 K/mcL (140-400); Red Blood Count 3.84 M/mcL (3.82-4.97); Red Cell Distribution Width 13.5 % (11.5-14.5); Segmented Neutrophils % 22.3 %
[2017-08-25 06:48] LABS: Albumin 3.5 g/dL (3.5-5.7); Albumin/Globulin Ratio 1.7 (1.1-2.2); Bilirubin,Total 0.3 mg/dL (0.3-1.0); Calcium 9.1 mg/dL (8.6-10.3); Globulin 2.1 g/dL (2.4-3.5); Potassium 4.2 mEq/L (3.5-5.1); Total Protein 5.6 g/dL (6.4-8.9)
[2017-08-25 06:57] LABS: Platelet Estimate Normal (Normal); Reactive Lymphocytes Present (Not Present)
[2017-08-25] MEDS: Aspirin 81 MG TAB.CHEW PO SCH (09:04)
--- NOTE | 2017-08-25 10:22 | Cardiology Consult Note ---
<Sarita Saleh - Last Filed: 08/25/17 10:50> Date of Encounter: 08/25/17 Time of Encounter: 10:00 Assessment and Plan (1) Syncope Current Visit: Yes Status: Acute Presented after syncopal episode while pumping gas. No prior episodes reported. Presyncopal symptoms: lightheadedness, facial numbness. Troponin negative x3. No concerning ECG changes noted. Echo pending, carotid duplex pending. Orthostatics negative, however appears to have been completed after IVF's. ? dehydration prior to event Reports intermittent chest pain for the past several years; along with risk factors (HTN, HLD, tobacco use) for CAD recommend stress test, can be completed as outpatient. Possible cavernous carotid artery aneurysm (right), Neurology does not feel r/t syncope. Recommend HM as outpatient, will place order. If not significant abnormalities on TTE, no further cardiac testing as inpatient. Will arrange outpatient follow-up. Qualifiers: Syncope type: unspecified Qualified Code(s): R55 - Syncope and collapse (2) [id number] kidney injury Current Visit: No Status: Acute TEZ on CKD upon presentation. Recent peripheral angiogram at [facility] on 08/22/17. SCr now baseline after IVF. Qualifiers: Acute renal failure type: unspecified Chronic kidney disease stage: stage 3 (moderate) Qualified Code(s): N17.9 - Acute kidney failure, unspecified; N18.3 - Chronic kidney disease, stage 3 (moderate) (3) PVD (peripheral vascular disease) Current Visit: Yes Status: Acute Hx of PVD s/p left SFA stent in 2014 at [facility]. Follows with vascular surgery at [facility]. Recommend resuming home plavix/pletal. Discussion w patient/family: The assessment and plan as outlined above was discussed with the patient and/or family members who expressed understanding and agreement. All questions were answered. Thank you for involving us in the care of your patient. Please call with any questions. The patient will be discussed and reviewed with Dr. Block; changes to be made accordingly. History of Present Illness Consult date: 08/25/17 Requesting physician: Evita Velez Consult reason: Syncope Chief complaint: Syncope History of present illness: Ms. Garcia is a 57 year old female with PMHx significant for HTN, HLD, heavy tobacco use, CKD-3, and PVD s/p LE intervention (follows at [facility]) who presented on Friday after apparent syncope episode while pumping gas. She reports she walked into the store to pay for gas, started to pump and had a "funny feeling" on left side of face, felt lightheaded, and apparently fell. She woke up to someone assisting her back up. Denies prior episodes. Per [facility] records, appears to have had a peripheral angiogram on 08/22/17. She reports intermittent episodes of non-radiating chest heaviness that have been ongoing for the past several years, nothing seems to worsen or improve pain. Also reports occasional facial numbness. Neurology saw patient, felt syncope was cardiogenic in etiology. Orthostatics negative as inpatient. TEZ on CKD upon presentation. Patient reports remote stress test and LHC at least 5-10 years ago at [facility], all reportedly "normal" Prior CV testing: TTE 11/2014: LVEF 60%, mild LVDD, mild AR, normal wall motion. Past Med Surg Social Fam HX - Past Medical History Attestation: Yes The following information was validated with the patient. Source: patient Medical history: COPD, GERD, hyperlipidemia, hypertension, peripheral artery disease, renal disease Psychiatric history: no psych history - Past Surgical History Surgical History: hysterectomy, orthopedic, other, LE vascular intervention ( left SFA stent 2014) - Social History Smoking Status: Current every day smoker Packs per day: 1- 1.5 PPD Smokeless Tobacco Status: No Alcohol use: none Drug use: none - Family History Father History Unknown: Yes Race: Family Member Ethnicity: Non- Living Status: Still Living Hx Family Cancer: Yes Hx Family Endocrine Disorder: Yes (DM) Mother Adopted: No Race: Family Member Ethnicity: Non- Twin of Family Member: Yes, Fraternal Living Status: Still Living Hx Family Cardiac Disorders: Yes (HTN) Hx Family Respiratory Disorders: No Hx Family Cancer: Yes Hx Family GI Disorders: Yes (Celiac) Hx Family Endocrine Disorder: Yes (dad dm) Hx Family Neuromuscular Disorders: No Hx Family Neurologic Disorders: No Hx Family HEENT Disorders: No Hx Family Autoimmune Disorders: No Brother Race: Family Member Ethnicity: Non- Living Status: Still Living Hx Family Cardiac Disorders: Yes (HD, CHF, HTN) Sister Race: Family Member Ethnicity: Non- Living Status: Still Living Hx Family Cardiac Disorders: Yes (HTN) Hx Family GI Disorders: Yes (Celiac) Medications and Allergies Albuterol Sulfate [Proair Hfa] 2 puff IH Q4-6H PRN 09/28/15 [History] Budesonide/Formoterol 160/4.5 [Symbicort 160/4.5] 2 puff IH BIDR 06/11/16 [ History] Aspirin [Lo-Dose Aspirin EC] 81 mg PO DAILY #30 tablet. 06/12/16 [Rx] Clopidogrel Bisulfate [Plavix] 75 mg PO DAILY #30 tablet 06/12/16 [Rx] Gabapentin [Neurontin] 300 mg PO TID PRN 03/13/17 [History] Cilostazol [Pletal] 100 mg PO BID 03/14/17 [History] Lovastatin [Mevacor] 20 mg PO HS 03/14/17 [History] Omeprazole [PriLOSEC] 20 mg PO DAILY #30 capsule. 03/14/17 [Rx] Umeclidinium [place] [Incruse Ellipta] 1 puff IH DAILY 03/14/17 [History] Fluticasone Propionate Nasal [Flonase] 2 spray NS DAILY #1 bottle 08/20/17 [Rx] predniSONE [PredniSONE] 20 mg PO DAILY 5 Days #7 tablet 08/20/17 [Rx] Lisinopril [Zestril] 40 mg PO DAILY 08/23/17 [History] 3 Allergy/AdvReac Type Severity Reaction Status Date / Time bupropion [From Wellbutrin] AdvReac Agitated Verified 08/23/17 14:27 hydrocodone [From Allred] AdvReac Nausea Verified 08/23/17 14:27 pregabalin [From Lyrica] AdvReac Nausea Verified 08/23/17 14:27 All Systems Review: The remainder of the systems were reviewed and are negative - Cardiovascular Cardiovascular: as per HPI Physical Examination Vital Signs, Last 4 Hours Temp Pulse Pulse Pulse Pulse Resp BP 08/25/17 09:12 97.5 F L 74 17 129/82 08/25/17 09:07 67 73 73 BP BP BP Pulse Ox 08/25/17 09:12 98 08/25/17 09:07 118/78 111/78 129/82 General: Conversant, No Apparent Distress HEENT: Atraumatic, Normocephaly, Mucus Membranes Moist Cardiac: Reg Rate and Rhythm, Normal S1 and S2 Lungs: Normal Breath Sounds Neuro: Alert and responsive Abdomen: Soft Skin: No rashes noted on visualized skin Musculoskeletal: No Chest Wall Tenderness Extremities: No Edema, Other (+1 DP/PT pulses bilateral) Results 08/25/17 04:12 08/25/17 04:12 Lab Results 08/24/17 08/25/17 08/25/17 16:28 04:12 04:12 WBC 8.4 Hgb 11.5 Hct 35.9 Plt Count 243 Sodium 140 Potassium 4.2 Chloride 109 H Carbon Dioxide 25 BUN 15 Creatinine 1.21 H Glucose 75 Calcium 9.1 Total Bilirubin 0.3 AST 10 L ALT 6 L Alkaline Phosphatase 74 TSH 1.318 Active Medications Albuterol/Ipratropium (Duoneb) 3 ml IH [id number] PRN PRN Reason: Shortness Of Breath/Wheezing Stop: 02/22/18 20:36 Aspirin (Aspirin) 81 mg PO DAILY [facility] Stop: 02/23/18 11:01 Last Admin: 08/25/17 09:04 Dose: 81 mg Heparin Sodium (Porcine) (Heparin) 5,000 unit SQ Q8HCO [facility] Stop: 02/22/18 22:01 Last Admin: 08/25/17 06:16 Dose: 5,000 unit Sodium Chloride (0.9 % Sodium Chloride) 1,000 mls @ 80 mls/hr IVC .[id number] [facility] Stop: 02/22/18 19:01 Last Admin: 08/24/17 20:13 Dose: 80 mls/hr Naloxone HCl (Narcan) 0.4 mg IVP Q2MIN PRN PRN Reason: SEE COMMENTS Stop: 02/22/18 17:54 Nicotine Polacrilex (Nicorette Gum) 2 mg BC Q2HWA PRN PRN Reason: Nicotine Cravings Stop: 02/23/18 17:48 Ondansetron HCl (Zofran) 4 mg IVP Q6H PRN; Protocol PRN Reason: Nausea And Vomiting Stop: 02/23/18 20:06 Oxycodone HCl (Oxycodone Oral Conc) 10 mg SL Q6H PRN; Protocol PRN Reason: Severe Pain Stop: 02/23/18 20:06 Last Admin: 08/25/17 06:17 Dose: 10 mg - Imaging and Cardiology Chest Xray: report reviewed Echo: pending - EKG Interpretation EKG results cardiology: personally reviewed Consult Discharge Plan - Plan Referrals: Trav Garcia MD [Primary Care Provider] - <Patricia Block - Last Filed: 08/25/17 13:34> Date of Encounter: 08/25/17 - Attending Attestation I examined this patient and my medical decision-making was reviewed with the [employer]. I agree with the documented findings, disposition and treatment plan as described. Ms. Garcia presents with a possible syncopal episode occurring at the gas station. She remembers feeling lightheaded and then being helped up off the ground by bystanders. She does not remember much more than this and there is no one at the bedside that witnessed this event. Her troponins have been negative and there are no concerning ECG changes noted. She reports having a somewhat similar event a few months ago where she felt lightheaded and dizzy and did not pass out. By her report, she was seen in an emergency room, told she was dehydrated and sent home. Notably, she reports drinking absolutely no water with beverages basically consisting of coffee and caffeinated soda. However, she is a very poor historian. It appears that she had a peripheral angiogram the day before this event at [facility] - she states she does not remember this but does know that she has an upcoming surgical appointment on at [facility] for her leg. She denies recent chest pain, palpitations. She denies having upper or lower back pain. Presently, she is feeling well at the bedside. Nevertheless, workup is pending including echocardiogram, carotid. She is wearing a monitor. Can consider stress testing for an ischemic evaluation as an outpatient. Assessment and Plan Discussion w patient/family: The assessment and plan as outlined above was discussed with the patient and/or family members who expressed understanding and agreement. All questions were answered. Thank you for involving us in the care of your patient. Please call with any questions. History of Present Illness History of present illness: Ms. Garcia is a 57 year old female All Systems Review: The remainder of the systems were reviewed and are negative Physical Examination Vital Signs, Last 4 Hours Temp Pulse Pulse Pulse Pulse Resp BP 08/25/17 09:12 97.5 F L 74 17 129/82 08/25/17 09:07 67 73 73 BP BP BP Pulse Ox 08/25/17 09:12 98 08/25/17 09:07 118/78 111/78 129/82 Results 08/25/17 04:12 08/25/17 04:12 Lab Results 08/24/17 08/25/17 08/25/17 16:28 04:12 04:12 WBC 8.4 Hgb 11.5 Hct 35.9 Plt Count 243 Sodium 140 Potassium 4.2 Chloride 109 H Carbon Dioxide 25 BUN 15 Creatinine 1.21 H Glucose 75 Calcium 9.1 Total Bilirubin 0.3 AST 10 L ALT 6 L Alkaline Phosphatase 74 TSH 1.318
[2017-08-25] MEDS: 0.9 % Sodium Chloride 1,000 ML IVC SCH ×3 (10:34→20:28)
--- NOTE | 2017-08-25 14:03 | Discharge Summary ---
- NOTES TO OUTPATIENT PROVIDER Notes to Outpatient Provider: Pt was admitted for syncopal episode. All imaging has been negative, labs stable. Renal function back to baseline after mild [place]. VSS and WNL. She was seen by neurology and cardiology, will have holter monitor placed for continued evaluation. Pt has been instructed to not drive until she is cleared by PCP. Orders not resulted at time of discharge: Pending orders 08/24/17 01:02 A1C [Hgb A1C] AM 0400 08/25/17 10:41 ECG 48 holter monitor setup [ECG] Routine 08/26/17 04:00 Complete Blood Count [HEME] AM 0400 Comprehensive Metabolic Panel AM 0400 08/27/17 04:00 Complete Blood Count [HEME] AM 0400 Comprehensive Metabolic Panel AM 0400 08/28/17 04:00 Complete Blood Count [HEME] AM 0400 Comprehensive Metabolic Panel AM 0400 Date of Encounter: 08/25/17 Time of Encounter: 09:50 - Discharge Diagnosis (1) CKD (chronic kidney disease), stage III Priority: Secondary Status: Chronic Assessment and Plan: Improved Sr Cr 1.21, GFR 46. Avoid nephrotoxins Pt sees Dr. Zhu. (2) COPD (chronic obstructive pulmonary disease) Priority: Secondary Status: Chronic Assessment and Plan: Chronic. Stable.No acute exacerbation. DuoNebs PRN. Supplemental O2 w/titration Qualifiers: COPD type: unspecified COPD Qualified Code(s): J44.9 - Chronic obstructive pulmonary disease, unspecified (3) HTN (hypertension) Priority: Secondary Status: Chronic Assessment and Plan: Chronic. Continue home medications. Qualifiers: Hypertension type: essential hypertension Qualified Code(s): I10 - Essential (primary) hypertension (4) DVT prophylaxis Priority: Secondary Status: Acute Assessment and Plan: Heparin subcutaneous, encourage ambulation. (5) Tobacco abuse counseling Priority: Secondary Status: Chronic Assessment and Plan: Nicorette gum. (6) Syncope Priority: Secondary Status: Acute Assessment and Plan: Pt has been evaluated by neurology, cardiology. cardiology recommends holter monitor, no futher cardiac testing now. Pt states that vision in left eye is still almost back to baseline, has regained her peripheral vision in left eye. Facial numbness has improved. Head CT negative, aneurysm not visible, brain MRI/MRA show no acute infarct, no flow-limiting stenosis. There was noted to have a possible aneurysm of right cavernous ICA, CTA of the head was ordered and completed for further evaluation. Plain head CT showed no acute intracranial abnormality and no change from prior. Echocardiogram with LVEF of 60%, mild LV DD, mild to moderate AR, mild TR and no evidence of PFO. Carotids shows right RCA with 40-59% stenosis, left ICA with nonstenotic Patient has been evaluated by physical therapy, no need to anticipated at discharge. Continue antiplatelet therapy Orthostatics negative Increase by mouth fluid intake Qualifiers: Syncope type: unspecified Qualified Code(s): R55 - Syncope and collapse (7) Difficulty swallowing Priority: Secondary Status: Acute Assessment and Plan: Patient was evaluated by speech today, they believe that underlying esophageal problem that she may have some strictures. Patient will be on a mechanical soft diet with thin liquids. Continue by mouth medications. Speech therapist worked with patient showing her tricks to be able to swallow food and drink GI consult was entered and pending. Qualifiers: Dysphagia type: other dysphagia Qualified Code(s): R13.19 - Other dysphagia (8) Left facial numbness Priority: Secondary Status: Acute Assessment and Plan: Improving. Plan as above. (9) Abdominal pain Priority: Secondary Status: Acute Assessment and Plan: Patient reports epigastric and left upper quadrant swelling, tenderness. Both areas exquisitely tender to palpation. Patient reports the pain radiates around to left mid back. Patient reports constipation, though she did have a bowel movement yesterday. She states that primary care's treating her for constipation with MiraLAX. Abdomen and pelvis CT negative, mild stool load seen in the colon, scattered colonic diverticuli with no bowel obstruction. Borderline bladder wall thickening, correlate with UTI. Patient is able to tolerate food and fluid without difficulty. Qualifiers: Abdominal location: right lower quadrant Qualified Code(s): R10.31 - Right lower quadrant pain Hospital course: Ms. Garcia is a 57 year old female Discharge discussed with: family - Time Spent with Patient Total time spent providing and/or coordinating discharge services: Less than 30 minutes - Discharge Medications Home Medications: Albuterol Sulfate [Proair Hfa] 2 puff IH Q4-6H PRN 09/28/15 [History] Budesonide/Formoterol 160/4.5 [Symbicort 160/4.5] 2 puff IH BIDR 06/11/16 [ History] Aspirin [Lo-Dose Aspirin EC] 81 mg PO DAILY #30 tablet. 06/12/16 [Rx] Clopidogrel Bisulfate [Plavix] 75 mg PO DAILY #30 tablet 06/12/16 [Rx] Gabapentin [Neurontin] 300 mg PO TID PRN 03/13/17 [History] Cilostazol [Pletal] 100 mg PO BID 03/14/17 [History] Lovastatin [Mevacor] 20 mg PO HS 03/14/17 [History] Omeprazole [PriLOSEC] 20 mg PO DAILY #30 capsule. 03/14/17 [Rx] Umeclidinium [place] [Incruse Ellipta] 1 puff IH DAILY 03/14/17 [History] Fluticasone Propionate Nasal [Flonase] 2 spray NS DAILY #1 bottle 08/20/17 [Rx] predniSONE [PredniSONE] 20 mg PO DAILY 5 Days #7 tablet 08/20/17 [Rx] Lisinopril [Zestril] 40 mg PO DAILY 08/23/17 [History] Allergies/Adverse Reactions: 3 Allergy/AdvReac Type Severity Reaction Status Date / Time bupropion [From Wellbutrin] AdvReac Agitated Verified 08/23/17 14:27 hydrocodone [From [place]] AdvReac Nausea Verified 08/23/17 14:27 pregabalin [From Lyrica] AdvReac Nausea Verified 08/23/17 14:27 Date of admission: 08/23/17 17:53 Primary care physician: Trav Garcia Consults: 08/23/17 18:32 Consult to Photo Technologist [CONS] Routine Reason for SW Consult: Please assess patient for possible home needs for post -discharge planning. 08/23/17 20:46 Consult to Gastroenterology [CONS] Routine Consulting Provider: G[facility] [place] Reason for Consult: Dysphagia work-up needed d/t inability to swallow for the past week. R/o oropharyngeal dysphagia versus esophagela dysphagia. Pt. reports removal of esophageal polyp several years ago. Call Completed: No 08/24/17 08:24 Consult to Speech Therapy [CONS] Routine Comment: Evaluate, develop and implement POC Reason for Consult: failed bedside swallow eval in ER Call Completed: Yes 08/25/17 08:37 Consult to Cardiology [CONS] Routine Comment: Consulting Provider: Cardiology [place] Reason for Consult: eval for cardiogenic syncope Time Notified: 08:38 Call Completed: Yes Discharging clinician: Evita Velez Anticipated date of discharge: 08/25/17 - Constitutional Vitals: Temp Pulse Resp BP Pulse Ox 97.5 F L 74 17 129/82 98 08/25/17 09:12 08/25/17 09:12 08/25/17 09:12 08/25/17 09:12 08/25/17 09:12 General appearance: Present: cooperative, mild distress, A&O X 3, pleasant, obese, answers questions appropriately - Head Head exam: Present: atraumatic, normal inspection, normocephalic - Eye Eye exam: Present: normal appearance, conjuntiva pink, sclera anicteric - Neck Neck exam general surgery: Present: supple, trachea midline. Absent: lymphadenopathy, tenderness - Respiratory Respiratory exam: Present: CTAB. Absent: accessory muscle use, chest wall tenderness, rales, rhonchi, wheezes - Cardiovascular Cardiovascular exam: Present: RRR, +S1, +S2. Absent: diastolic murmur, gallop, rubs, systolic murmur - GI/Abdominal GI/Abdominal exam: Present: normal bowel sounds, soft. Absent: distended, hepatomegaly, tenderness - Extremities Exam Extremities exam: Present: normal capillary refill, normal inspection, warm, radial pulses palpable and symmetrical. Absent: calf tenderness, cyanotic, pedal edema, tenderness - Neurological Exam Neurological exam: Present: alert, oriented X3, no focal deficits. Absent: facial droop, speech deficit - Skin Skin exam: Present: dry, intact, normal color, warm. Absent: rash - Patient Status Disposition: Home, Self-Care Condition: Good Functional capacity at discharge: independent ambulation Overall status at discharge: patient is progressing back to baseline - Discharge Instructions Follow Up With: Trav Garcia MD [Primary Care Provider] - Additional Instructions: Take your medications as directed. REturn to the ER as needed for any other problems or concerns, or if your symptoms return or worsen. Return to your normal diet and activities as tolerated. - Diet and Activity Activity: increase activity as tolerated Diet: advance to your usual diet
[2017-08-25] MEDS ORDERED: Isovue-370 500 ML INFUS..BTL IV ONE (16:11)
[2017-08-25] MEDS: Aspirin Enteric Coated 81 MG Tablet PO SCH (17:18)
[2017-08-25] MEDS: Budesonide/Formoterol 160/4.5 MDI IH SCH (19:55)
[2017-08-25] MEDS: Gabapentin 300 MG CAPSULE PO SCH (20:29)
[2017-08-26 05:22] LABS: Basophils # 0.1 K/mcL (0.0-0.2); Basophils % 0.8 %; Eosinophils # 0.4 K/mcL (0.0-0.6); Eosinophils % 4.4 %; Hematocrit 35.8 % (35.3-44.9); Hemoglobin 11.7 g/dL (11.5-15.4); Immature Granulocytes % 0.1 % (0-4); Lymphocytes # 3.9 K/mcL (0.6-4.6); Lymphocytes % 47.3 %; Mean Corpuscular HGB Conc 32.7 g/dL (31.6-35.5); Mean Corpuscular Hemoglobin 30.2 pg (28.0-33.3); Mean Corpuscular Volume 92.5 fL (83.0-100.0); Mean Platelet Volume 9.7 fL (9.4-12.4); Monocytes # 0.7 K/mcL (0.0-1.3); Monocytes % 7.9 %; Neutrophils # 3.3 K/mcL (1.6-8.9); Platelet Count 239 K/mcL (140-400); Red Blood Count 3.87 M/mcL (3.82-4.97); Red Cell Distribution Width 13.3 % (11.5-14.5); Segmented Neutrophils % 39.5 %
[2017-08-26] MEDS: *HR* Heparin 5,000 UNIT/ML VIAL SQ SCH (05:26)
[2017-08-26 05:43] LABS: Alanine Aminotransferase 7 Units/L (7-52); Albumin 3.4 g/dL (3.5-5.7); Albumin/Globulin Ratio 1.6 (1.1-2.2); Alkaline Phosphatase 74 Units/L (34-104); Aspartate Amino Transferase 11 Units/L (13-39); BUN/Creatinine Ratio 12 (6-26); Bilirubin,Total 0.3 mg/dL (0.3-1.0); Blood Urea Nitrogen 12 mg/dL (6-20); Carbon Dioxide 23 mEq/L (23-29); Chloride 110 mEq/L (98-107); Globulin 2.1 g/dL (2.4-3.5); Glucose 84 mg/dL (70-105); Osmolality,Calculated 285 (280-300); Sodium 138 mEq/L (136-145); Total Protein 5.5 g/dL (6.4-8.9); eGFR For African Americans > 60 (> 60); eGFR For Non-African Americans 58 (> 60)
[2017-08-26] MEDS: Budesonide/Formoterol 160/4.5 MDI IH SCH (07:18)
[2017-08-26 08:53] LABS: Estimated Average Glucose 117 mg/dl; Hemoglobin A1C 5.7 %
[2017-08-26] MEDS: Aspirin Enteric Coated 81 MG Tablet PO SCH (08:53)
[2017-08-26] MEDS ORDERED: Lisinopril 20 MG TABLET PO SCH (09:00)
[2017-08-26] MEDS ORDERED: predniSONE 20 MG TABLET PO SCH (09:00)
[2017-08-26] MEDS ORDERED: Fluticasone Propionate Nasal 50 MCG/SPRAY BOTTLE NS SCH (09:00)
[2017-08-26] MEDS ORDERED: NON-FORMULARY MEDICATION 1 EACH EACH (Umeclidinium Bromide [Incruse Ellipta] 1 PUFF) IH SCH (09:00)
[2017-08-26] MEDS: 0.9 % Sodium Chloride 1,000 ML IVC SCH (09:07)
[2017-08-26] MEDS ORDERED: Tiotropium 18 MCG inhalation IH SCH (10:00)
--- NOTE | 2017-08-26 10:16 | Internal Med Progress Note ---
Date of Encounter: 08/26/17 Time of Encounter: 10:14 - Assessment and plan (1) CKD (chronic kidney disease), stage III Current Visit: Yes Status: Chronic (2) COPD (chronic obstructive pulmonary disease) Current Visit: Yes Status: Chronic Qualifiers: COPD type: unspecified COPD Qualified Code(s): J44.9 - Chronic obstructive pulmonary disease, unspecified (3) HTN (hypertension) Current Visit: Yes Status: Chronic Qualifiers: Hypertension type: essential hypertension Qualified Code(s): I10 - Essential (primary) hypertension (4) DVT prophylaxis Current Visit: Yes Status: Acute (5) Tobacco abuse counseling Current Visit: Yes Status: Chronic (6) Syncope Current Visit: Yes Status: Acute Qualifiers: Syncope type: unspecified Qualified Code(s): R55 - Syncope and collapse (7) Difficulty swallowing Current Visit: Yes Status: Acute Qualifiers: Dysphagia type: other dysphagia Qualified Code(s): R13.19 - Other dysphagia (8) Left facial numbness Current Visit: Yes Status: Acute (9) Abdominal pain Current Visit: Yes Status: Acute Qualifiers: Abdominal location: right lower quadrant Qualified Code(s): R10.31 - Right lower quadrant pain - Time Spent With Patient Total time spent is greater than 50% in coordination of care (as documented) at patient's floor/unit and/or counseling patient: - Subjective Interval history: Ms. Garcia is a 57 year old female w/PMH of COPD, GERD, HTN, CKD, PAD, and current tobacco abuse who presented w/CC of syncopal episode while at the [facility]. Pt. states she began having numbness to the left face and around her mouth, blurry vision in left eye, and loss of peripheral vision in left eye prior to the syncopal event. She was seen and examined at the bedside today, denies any additional syncopal episodes, blurred vision, dizziness, facial numbness or paresthesias. Patient reports she is feeling much better and ready to go home. She was sent to discharge yesterday but remained overnight due to evaluation for potential esophageal stricture. She was notified that pending results of the GI she may be discharged, patient was in agreement denies any further questions at this time. - Constitutional Vitals: Temp Pulse Resp BP Pulse Ox 97.7 F 74 17 118/84 92 08/26/17 07:34 08/26/17 07:34 08/26/17 07:34 08/26/17 07:34 08/26/17 07:34 General appearance: Present: cooperative, mild distress, A&O X 3, pleasant, obese, answers questions appropriately - Head Head exam: Present: atraumatic, normocephalic - Eye Eye exam: Present: PERRL, conjuntiva pink, sclera anicteric Pupils: Present: PERRL - Neck Neck exam general surgery: Present: supple, trachea midline. Absent: lymphadenopathy - Respiratory Respiratory exam: Present: CTAB. Absent: accessory muscle use, rales, rhonchi, wheezes - Cardiovascular Cardiovascular exam: Present: RRR, +S1, +S2. Absent: diastolic murmur, gallop, rubs, systolic murmur - GI/Abdominal GI/Abdominal exam: Present: normal bowel sounds, soft, no peritoneal signs. Absent: distended, tenderness - Extremities Exam Extremities exam: Present: warm, radial pulses palpable and symmetrical. Absent : calf tenderness, cyanotic, pedal edema - Neurological Exam Neurological exam: Present: CN II-XII intact, oriented X3, no focal deficits. Absent: pronater drift, facial droop, speech deficit - Skin Skin exam: Present: dry, intact Internal Medicine: Result - Labs CBC & Chem 7: 08/26/17 03:58 08/26/17 03:58 Labs: Short CBC 08/26/17 Range/Units 03:58 WBC 8.3 (4.3-11.1) K/mcL Hgb 11.7 (11.5-15.4) g/dL Hct 35.8 (35.3-44.9) % Plt Count 239 (140-400) K/mcL Neutrophils # 3.3 (1.6-8.9) K/mcL BMP 08/26/17 03:58 Sodium 138 Potassium 4.0 Chloride 110 H Carbon Dioxide 23 BUN 12 Creatinine 0.98 Glucose 84 Calcium 9.0 Liver Function 08/26/17 Range/Units 03:58 Total Bilirubin 0.3 (0.3-1.0) mg/dL AST 11 L (13-39) Units/L ALT 7 (7-52) Units/L Alkaline Phosphatase 74 (34-104) Units/L Albumin 3.4 L (3.5-5.7) g/dL - ABG Interpretation ABG results: PT/INR, D-dimer PT 10.0 Seconds (9.4-12.1) 08/24/17 01:02 D-Dimer 468 ng/mLFEU (0-500) 08/23/17 13:24 - Impressions Impressions Echocardiogram 08/25/17 07:00 Impressions: LVEF 60%. Mild left ventricular diastolic dysfunction. Normal right ventricular structure and function. Mild-moderate aortic regurgitation. Mild tricuspid regurgitation. No pulmonary hypertension. No evidence of PFO with agitated saline contrast. Left Ventricular Wall Motion: Rest Echo Findings All wall segments showed normal motion. Findings: Study Quality * Technically adequate exam. ECG Findings * Normal sinus rhythm. Left Ventricle * LVEF 60%. * Mild left ventricular diastolic dysfunction. * Normal LV chamber size, wall thickness and function. Right Ventricle * Normal right ventricular structure and function. Left Atrium * Normal left atrial size. Right Atrium * Normal right atrial size. Interatrial Septum * No evidence of PFO with agitated saline contrast. * No evidence of PFO by color Doppler. Aortic Valve * Aortic valve not well visualized. * Mild-moderate aortic regurgitation. * No aortic stenosis. Mitral Valve * Normal mitral valve structure. * No mitral regurgitation. * No mitral stenosis. Tricuspid Valve * Normal tricuspid valve structure. * Mild tricuspid regurgitation. * Estimated RA pressure is 3 mmHg. * Estimated RVSP is 31 mmHg. * No pulmonary hypertension. Pulmonic Valve * Pulmonic valve is not well visualized. * No pulmonic stenosis. * No pulmonic regurgitation. Pulmonary Artery * Pulmonary artery not well visualized. Aorta * Normally sized aortic root. * Ascending aorta not optimally visualized. Pericardium * There is no pericardial effusion present. IVC * The IVC is not dilated. Head CTA 08/25/17 16:11 IMPRESSION: 1. No acute intracranial abnormality. 2. No aneurysm identified. D/ / Mick Ojeda MD / Mick Ojeda MD Interpreting Provider: Mick Ojeda MD Consult Discharge Plan - Plan Additional Instructions: Take your medications as directed. REturn to the ER as needed for any other problems or concerns, or if your symptoms return or worsen. Return to your normal diet and activities as tolerated. Referrals: Trav Garcia MD [Primary Care Provider] -
--- NOTE | 2017-08-26 10:56 | Cardiology Progress Note ---
Date of Encounter: 08/26/17 Time of Encounter: 10:54 Assessment and Plan (1) Syncope Current Visit: Yes Status: Acute Presented after syncopal episode while pumping gas. No prior episodes reported. Presyncopal symptoms: lightheadedness, facial numbness. Troponin negative x3. No concerning ECG changes noted. Echo EF 60%, mild LVDD, mild-moderate AR, mild TR, no phtn, no PFO. Bilateral carotids minimal plaque throughout. Orthostatics negative, however appears to have been completed after IVF's. ? dehydration prior to event Reports intermittent chest pain for the past several years; along with risk factors (HTN, HLD, tobacco use) for CAD recommend stress test, can be completed as outpatient. Possible cavernous carotid artery aneurysm (right), Neurology does not feel r/t syncope. Recommend HM as outpatient, will place order. No further cardiac testing warranted as inpatient. Will arrange outpatient follow-up in 3-4 weeks. Cardiology signing off. Reconsult PRN. Qualifiers: Syncope type: unspecified Qualified Code(s): R55 - Syncope and collapse (2) Xnocg-zc-syorbiv kidney injury Current Visit: No Status: Acute TEZ on CKD upon presentation. Recent peripheral angiogram at [facility] on 08/22/17. SCr now baseline after IVF. Qualifiers: Acute renal failure type: unspecified Chronic kidney disease stage: stage 3 (moderate) Qualified Code(s): N17.9 - Acute kidney failure, unspecified; N18.3 - Chronic kidney disease, stage 3 (moderate) (3) PVD (peripheral vascular disease) Current Visit: Yes Status: Acute Hx of PVD s/p left SFA stent in 2014 at [facility]. Follows with vascular surgery at [facility]. Recommend resuming home plavix/pletal. Discussion w patient/family: The assessment and plan as outlined above was discussed with the patient and/or family members who expressed understanding and agreement. All questions were answered. Thank you for involving us in the care of your patient. Please call with any questions. I will discuss all the above with Dr. Johns and make changes as necessary. Subjective Principal diagnosis: Syncope Interval history: Pt denies acute complaints overnight. Denies chest pain, dyspnea, recurrent syncope, dizziness or lightheadedness. Echo resulted--EF 60%, mild LVDD, mild- moderate AR, mild TR, no phtn, no PFO. Bilateral carotids minimal plaque throughout. Objective Vital Signs, Last 4 Hours Temp Pulse Resp BP Pulse Ox 08/26/17 07:34 97.7 F 74 17 118/84 92 08/26/17 07:20 18 95 Vital Signs Temp Pulse Resp BP Pulse Ox 08/26/17 07:34 97.7 F 74 17 118/84 92 08/26/17 07:20 18 95 08/25/17 19:57 18 94 08/25/17 15:36 97.7 F 76 18 127/85 93 Intake and Output 08/25/17 08/26/17 08/26/17 23:59 07:59 15:59 Intake Total 1000 / 1000 1240 / 1240 Balance 1000 / 1000 1240 / 1240 Intake: IV Fluids 1000 / 1000 1000 / 1000 0.9 % Sodium Chloride 1,000 ML 1000 / 1000 1000 / 1000 @ 80 mls/hr IVC .[id number] [facility] Rx #:[id number] Oral 240 / 240 Other: Meal Breakfast Percent of Meal Consumed 50% # Voids 1 General: Conversant, No Apparent Distress HEENT: Atraumatic, Normocephaly, Mucus Membranes Moist Neck: No JVD, Normal carotid pulses Cardiac: Reg Rate and Rhythm, Normal S1 and S2, No Murmur Lungs: Normal Breath Sounds, No Wheeze, Rales, Rhonchi Neuro: Alert and responsive, No focal deficits noted Abdomen: Soft, Non-Tender Skin: No rashes noted on visualized skin Musculoskeletal: No Chest Wall Tenderness Extremities: No Clubbing, No Cyanosis, No Edema, Normal Pulses Results 08/26/17 03:58 08/26/17 03:58 Lab Results 08/26/17 08/26/17 03:58 03:58 WBC 8.3 Hgb 11.7 Hct 35.8 Plt Count 239 Sodium 138 Potassium 4.0 Chloride 110 H Carbon Dioxide 23 BUN 12 Creatinine 0.98 Glucose 84 Calcium 9.0 Total Bilirubin 0.3 AST 11 L ALT 7 Alkaline Phosphatase 74 Short CBC 08/26/17 Range/Units 03:58 WBC 8.3 (4.3-11.1) K/mcL Hgb 11.7 (11.5-15.4) g/dL Hct 35.8 (35.3-44.9) % Plt Count 239 (140-400) K/mcL Neutrophils # 3.3 (1.6-8.9) K/mcL BMP 08/26/17 Range/Units 03:58 Sodium 138 (136-145) mEq/L Potassium 4.0 (3.5-5.1) mEq/L Chloride 110 H (98-107) mEq/L Carbon Dioxide 23 (23-29) mEq/L BUN 12 (6-20) mg/dL Creatinine 0.98 (0.60-1.20) mg/dL Glucose 84 (70-105) mg/dL Calcium 9.0 (8.6-10.3) mg/dL Liver Function 08/26/17 Range/Units 03:58 Total Bilirubin 0.3 (0.3-1.0) mg/dL AST 11 L (13-39) Units/L ALT 7 (7-52) Units/L Alkaline Phosphatase 74 (34-104) Units/L Albumin 3.4 L (3.5-5.7) g/dL Impressions Echocardiogram 08/25/17 07:00 Impressions: LVEF 60%. Mild left ventricular diastolic dysfunction. Normal right ventricular structure and function. Mild-moderate aortic regurgitation. Mild tricuspid regurgitation. No pulmonary hypertension. No evidence of PFO with agitated saline contrast. Left Ventricular Wall Motion: Rest Echo Findings All wall segments showed normal motion. Findings: Study Quality * Technically adequate exam. ECG Findings * Normal sinus rhythm. Left Ventricle * LVEF 60%. * Mild left ventricular diastolic dysfunction. * Normal LV chamber size, wall thickness and function. Right Ventricle * Normal right ventricular structure and function. Left Atrium * Normal left atrial size. Right Atrium * Normal right atrial size. Interatrial Septum * No evidence of PFO with agitated saline contrast. * No evidence of PFO by color Doppler. Aortic Valve * Aortic valve not well visualized. * Mild-moderate aortic regurgitation. * No aortic stenosis. Mitral Valve * Normal mitral valve structure. * No mitral regurgitation. * No mitral stenosis. Tricuspid Valve * Normal tricuspid valve structure. * Mild tricuspid regurgitation. * Estimated RA pressure is 3 mmHg. * Estimated RVSP is 31 mmHg. * No pulmonary hypertension. Pulmonic Valve * Pulmonic valve is not well visualized. * No pulmonic stenosis. * No pulmonic regurgitation. Pulmonary Artery * Pulmonary artery not well visualized. Aorta * Normally sized aortic root. * Ascending aorta not optimally visualized. Pericardium * There is no pericardial effusion present. IVC * The IVC is not dilated. Head CTA 08/25/17 16:11 IMPRESSION: 1. No acute intracranial abnormality. 2. No aneurysm identified. D/ / Mick Ojeda MD / Mick Ojeda MD Interpreting Provider: Mick Ojeda MD Active Medications Albuterol/Ipratropium (Duoneb) 3 ml IH [id number] PRN PRN Reason: Shortness Of Breath/Wheezing Stop: 02/22/18 20:36 Aspirin (Aspirin Ec) 81 mg PO DAILY [facility] Stop: 02/24/18 17:01 Last Admin: 08/26/17 08:53 Dose: 81 mg Budesonide/Formoterol Fumarate (Symbicort) 2 puff IH BIDR [facility] Stop: 02/24/18 22:01 Last Admin: 08/26/17 07:18 Dose: 2 puff Cilostazol (Pletal) 100 mg PO BID [facility] Stop: 02/24/18 21:01 Last Admin: 08/26/17 08:52 Dose: 100 mg Clopidogrel Bisulfate (Plavix) 75 mg PO DAILY [facility] Stop: 02/25/18 09:01 Last Admin: 08/26/17 08:52 Dose: 75 mg Fluticasone Propionate (Flonase) 100 mcg NS DAILY [facility] PRN Reason: Protocol Stop: 02/25/18 09:01 Last Admin: 08/26/17 08:54 Dose: 100 mcg Gabapentin (Neurontin) 300 mg PO TID [facility] Stop: 02/24/18 21:01 Last Admin: 08/25/17 20:29 Dose: 300 mg Heparin Sodium (Porcine) (Heparin) 5,000 unit SQ Q8HCO [facility] Stop: 02/22/18 22:01 Last Admin: 08/26/17 05:26 Dose: 5,000 unit Heparin Sodium (Porcine) (Heparin Lock) 500 unit IV ONCE PRN PRN Reason: Port [place]ush while in RADIOLOGY Stop: 08/27/17 16:12 Sodium Chloride (0.9 % Sodium Chloride) 1,000 mls @ 80 mls/hr IVC .[id number] [facility] Stop: 02/22/18 19:01 Last Admin: 08/26/17 09:07 Dose: 80 mls/hr Lisinopril (Zestril) 40 mg PO DAILY [facility] Stop: 02/25/18 09:01 Last Admin: 08/26/17 08:53 Dose: 40 mg Naloxone HCl (Narcan) 0.4 mg IVP Q2MIN PRN PRN Reason: SEE COMMENTS Stop: 02/22/18 17:54 Nicotine Polacrilex (Nicorette Gum) 2 mg BC Q2HWA PRN PRN Reason: Nicotine Cravings Stop: 02/23/18 17:48 Omeprazole (Prilosec) 20 mg PO DAILY [facility] PRN Reason: Protocol Stop: 02/25/18 09:01 Last Admin: 08/26/17 08:52 Dose: 20 mg Ondansetron HCl (Zofran) 4 mg IVP Q6H PRN; Protocol PRN Reason: Nausea And Vomiting Stop: 02/23/18 20:06 Oxycodone HCl (Oxycodone Oral Conc) 10 mg SL Q6H PRN; Protocol PRN Reason: Severe Pain Stop: 02/23/18 20:06 Last Admin: 08/25/17 06:17 Dose: 10 mg Prednisone (Prednisone) 20 mg PO ONCE ONE Stop: 08/26/17 17:14 Simvastatin (Zocor) 10 mg PO HS [facility] Stop: 02/24/18 21:01 Last Admin: 08/25/17 20:29 Dose: 10 mg Tiotropium [place] (Spiriva) 18 mcg IH DAILYR [facility] Stop: 02/25/18 10:01 Last Admin: 08/26/17 07:18 Dose: 18 mcg - Imaging and Cardiology Echo: report reviewed - EKG Interpretation EKG results cardiology: other (12 hr tele AVG HR 72, SR) Consult Discharge Plan - Plan Additional Instructions: Take your medications as directed. REturn to the ER as needed for any other problems or concerns, or if your symptoms return or worsen. Return to your normal diet and activities as tolerated. Referrals: Trav Garcia MD [Primary Care Provider] -
[2017-08-26] MEDS: Gabapentin 300 MG CAPSULE PO SCH (11:47)
--- NOTE | 2017-08-26 11:47 | Gastroenterology Consult Note ---
<Sebastian Phillip - Last Filed: 08/26/17 11:43> Date of Encounter: 08/26/17 Time of Encounter: 10:40 - Assessment and plan (1) Difficulty swallowing Status: Acute Assessment and plan: Pt with difficulty swallowing solids and liquids for the past 2-3 months. Plan for EGD with possible dilation as outpatient. Pt will need to hold her Plavix prior to procedure. Follow up in GI office 1 week after discharge. Qualifiers: Dysphagia type: unspecified Qualified Code(s): R13.10 - Dysphagia, unspecified - Time Spent With Patient Total time spent is greater than 50% in coordination of care (as documented) at patient's floor/unit and/or counseling patient: GI History of Present Illness - Data of Consult Patient: new to practice Consult date: 08/26/17 Requesting Physician: Obdulia Mcbride - Consult Narrative Reason for consult: Dysphagia History of present illness: Ms. Garcia is a 57 year old female with PMHx of COPD, GERD, HLD, HTN, CKD stage 3 , who presented with complaints of syncopal episode. We were consulted to evaluate complaint of dysphagia. She reports having difficulty swallowing solids and liquids for the past 2-3 months. She denies recent illness, fever, chills, nausea, vomiting, abdominal pain, diarrhea, constipation, unusual bleeding, cough, or chest congestion. Denies previous occurrence or hx of CVA/ TIA. Speech therapy has evaluated the patient and believes she may have esophageal strictures. Procedures: Colonoscopy 09/28/2015 Dr. Haddad: Normal. EGD 09/28/2015 Dr. Haddad: [place] colored mucosa biopsy negative for Santoro's esophagus but did show reflux esophagitis, gastritis. NSAIDs: ASA Anticoagulation: Plavix Past Med Surg Social Fam HX - Past Medical History Medical history: COPD, GERD, hyperlipidemia, hypertension, peripheral artery disease, renal disease Psychiatric history: no psych history - Past Surgical History Surgical History: hysterectomy, orthopedic, other, LE vascular intervention ( left SFA stent 2014) - Social History Smoking Status: Current every day smoker Packs per day: 1- 1.5 PPD Smokeless Tobacco Status: No Alcohol use: none Drug use: none - Family History Father History Unknown: Yes Race: Family Member Ethnicity: Non- Living Status: Still Living Hx Family Cancer: Yes Hx Family Endocrine Disorder: Yes (DM) Mother Adopted: No Race: Family Member Ethnicity: Non- Twin of Family Member: Yes, Fraternal Living Status: Still Living Hx Family Cardiac Disorders: Yes (HTN) Hx Family Respiratory Disorders: No Hx Family Cancer: Yes Hx Family GI Disorders: Yes (Celiac) Hx Family Endocrine Disorder: Yes (dad dm) Hx Family Neuromuscular Disorders: No Hx Family Neurologic Disorders: No Hx Family HEENT Disorders: No Hx Family Autoimmune Disorders: No Brother Race: Family Member Ethnicity: Non- Living Status: Still Living Hx Family Cardiac Disorders: Yes (HD, CHF, HTN) Sister Race: Family Member Ethnicity: Non- Living Status: Still Living Hx Family Cardiac Disorders: Yes (HTN) Hx Family GI Disorders: Yes (Celiac) - Gastrointestinal Gastrointestinal: Present: as per HPI - Constitutional Constitutional: as per HPI - EENT Eyes: as per HPI Ears: Present: as per HPI Nose, mouth and throat: Present: as per HPI - Cardiovascular Cardiovascular ROS: Present: as per HPI - Respiratory Respiratory IM: Present: as per HPI - Genitourinary Genitourinary: Absent: change in color, Urinary frequency - Neurological ROS Neurological GI: Present: as per HPI - Hematologic/Lymphatic Hematologic/Lymphatic pediatric: Present: as per HPI - Musculoskeletal Musculoskeletal ROS GI: Present: as per HPI - Integumentary Integumentary GI: Present: as per HPI - Psychiatric ROS Psychiatric GI: Present: as per HPI - Endocrine Endocrine IM: Present: as per HPI - Constitutional Vitals: Temp Pulse Resp BP Pulse Ox 97.7 F 74 17 118/84 92 08/26/17 07:34 08/26/17 07:34 08/26/17 07:34 08/26/17 07:34 08/26/17 07:34 General appearance: Present: cooperative, A&O X 3, no acute distress, answers questions appropriately - Head Head exam: Present: atraumatic, normocephalic - Eye Eye exam: Present: normal appearance, sclera anicteric - ENT ENT exam: Present: mucous membranes dry - Neck Neck exam general surgery: Present: normal inspection, trachea midline - Respiratory Respiratory exam: Present: CTAB. Absent: rales, rhonchi - Cardiovascular Cardiovascular exam: Present: RRR, +S1, +S2 - GI/Abdominal GI/Abdominal exam: Present: soft, no peritoneal signs. Absent: distended, firm , guarding, tenderness - Rectal Rectal exam: Present: deferred - Extremities Exam Extremities exam: Present: warm - Neurological Exam Neurological exam: Present: no focal deficits - Psychiatric Psychiatric exam: Present: normal affect, normal mood - Skin Skin exam: Present: dry, intact, normal color, warm Results - Labs CBC & Chem 7: 08/26/17 03:58 08/26/17 03:58 Labs: Last Result Calcium 9.0 mg/dL (8.6-10.3) 08/26/17 03:58 Troponin I < 0.03 ng/mL (< 0.04) 08/24/17 01:02 Triglycerides 122 mg/dL (< 150) 08/24/17 01:02 Vitamin B12 356 pg/mL (250-1100) 08/24/17 16:28 Folate 4.9 ng/mL (3.0-16.0) 08/24/17 16:28 Entire Visit Hgb 11.7 g/dL (11.5-15.4) 08/26/17 03:58 Hct 35.8 % (35.3-44.9) 08/26/17 03:58 PT 10.0 Seconds (9.4-12.1) 08/24/17 01:02 Total Bilirubin 0.3 mg/dL (0.3-1.0) 08/26/17 03:58 AST 11 Units/L (13-39) L 08/26/17 03:58 ALT 7 Units/L (7-52) 08/26/17 03:58 Folate 4.9 ng/mL (3.0-16.0) 08/24/17 16:28 - ABG ABG results: PT/INR, D-dimer PT 10.0 Seconds (9.4-12.1) 08/24/17 01:02 D-Dimer 468 ng/mLFEU (0-500) 08/23/17 13:24 - Impressions Impressions Echocardiogram 08/25/17 07:00 Impressions: LVEF 60%. Mild left ventricular diastolic dysfunction. Normal right ventricular structure and function. Mild-moderate aortic regurgitation. Mild tricuspid regurgitation. No pulmonary hypertension. No evidence of PFO with agitated saline contrast. Left Ventricular Wall Motion: Rest Echo Findings All wall segments showed normal motion. Findings: Study Quality * Technically adequate exam. ECG Findings * Normal sinus rhythm. Left Ventricle * LVEF 60%. * Mild left ventricular diastolic dysfunction. * Normal LV chamber size, wall thickness and function. Right Ventricle * Normal right ventricular structure and function. Left Atrium * Normal left atrial size. Right Atrium * Normal right atrial size. Interatrial Septum * No evidence of PFO with agitated saline contrast. * No evidence of PFO by color Doppler. Aortic Valve * Aortic valve not well visualized. * Mild-moderate aortic regurgitation. * No aortic stenosis. Mitral Valve * Normal mitral valve structure. * No mitral regurgitation. * No mitral stenosis. Tricuspid Valve * Normal tricuspid valve structure. * Mild tricuspid regurgitation. * Estimated RA pressure is 3 mmHg. * Estimated RVSP is 31 mmHg. * No pulmonary hypertension. Pulmonic Valve * Pulmonic valve is not well visualized. * No pulmonic stenosis. * No pulmonic regurgitation. Pulmonary Artery * Pulmonary artery not well visualized. Aorta * Normally sized aortic root. * Ascending aorta not optimally visualized. Pericardium * There is no pericardial effusion present. IVC * The IVC is not dilated. Head CTA 08/25/17 16:11 IMPRESSION: 1. No acute intracranial abnormality. 2. No aneurysm identified. D/ / Mick Ojeda MD / Mick Ojeda MD Interpreting Provider: Mick Ojeda MD Consult Discharge Plan - Plan Instructions: Syncope (DC), Chronic Dysphagia (DC) Additional Instructions: Take your medications as directed. REturn to the ER as needed for any other problems or concerns, or if your symptoms return or worsen. Return to your normal diet and activities as tolerated. Referrals: Sebastian Phillip CNP [Advanced Practice Nurse] - (We have web requested you an apointment with Sebastian Bull CNP. They should be calling you with in the next few days. Thank you!! ) Trav Garcia MD [Primary Care Provider] - 08/27/17 10:00 am <Guillermo Tang - Last Filed: 08/29/17 03:59> Date of Encounter: 08/26/17 - Time Spent With Patient Total time spent is greater than 50% in coordination of care (as documented) at patient's floor/unit and/or counseling patient: GI History of Present Illness - Data of Consult Requesting Physician: Obdulia Mcbride - Consult Narrative History of present illness: Ms. Garcia is a 57 year old female - Constitutional Vitals: Temp Pulse Resp BP Pulse Ox 97.6 F 84 18 125/81 92 08/26/17 12:06 08/26/17 12:06 08/26/17 12:06 08/26/17 12:06 08/26/17 12:06 Results - Labs CBC & Chem 7: 08/26/17 03:58 08/26/17 03:58 Labs: Last Result Calcium 9.0 mg/dL (8.6-10.3) 08/26/17 03:58 Troponin I < 0.03 ng/mL (< 0.04) 08/24/17 01:02 Triglycerides 122 mg/dL (< 150) 08/24/17 01:02 Vitamin B12 356 pg/mL (250-1100) 08/24/17 16:28 Folate 4.9 ng/mL (3.0-16.0) 08/24/17 16:28 Entire Visit Hgb 11.7 g/dL (11.5-15.4) 08/26/17 03:58 Hct 35.8 % (35.3-44.9) 08/26/17 03:58 PT 10.0 Seconds (9.4-12.1) 08/24/17 01:02 Total Bilirubin 0.3 mg/dL (0.3-1.0) 08/26/17 03:58 AST 11 Units/L (13-39) L 08/26/17 03:58 ALT 7 Units/L (7-52) 08/26/17 03:58 Folate 4.9 ng/mL (3.0-16.0) 08/24/17 16:28 - ABG ABG results: PT/INR, D-dimer PT 10.0 Seconds (9.4-12.1) 08/24/17 01:02 D-Dimer 468 ng/mLFEU (0-500) 08/23/17 13:24 - Attending Attestation 57-year-old female who was anticoagulated with Plavix and aspirin presents with dysphagia. There is no history of gastrointestinal bleeding and so we will plan EGD with possible dilation of her esophagus as an outpatient once she is off the Plavix and aspirin that is okay with cardiology. I have personally performed a face to face evaluation on this patient. I have reviewed and agree with the care plan. History and Exam by me shows:
[2017-08-26 12:06] VITALS: BP 125/81
--- NOTE | 2017-08-26 12:34 | Discharge Summary ---
- NOTES TO OUTPATIENT PROVIDER Notes to Outpatient Provider: Treated and evaluated for syncope. Neurological workup found to be unremarkable. Per neurology: Not thought to be caused by CVA /TIA or seizure. Negative orthostatics. Uneventful hospital course. Instructed to follow-up with PCP within 1 week of discharge. Follow-up with cardiology in 3-4 weeks; will need Holter monitor and outpatient stress test. Orders not resulted at time of discharge: Pending orders 08/27/17 04:00 Complete Blood Count [HEME] AM 0400 Comprehensive Metabolic Panel AM 0400 08/28/17 04:00 Complete Blood Count [HEME] AM 0400 Comprehensive Metabolic Panel AM 0400 Date of Encounter: 08/26/17 Time of Encounter: 12:32 - Discharge Diagnosis (1) Syncope Priority: Primary Status: Acute Assessment and Plan: Admitted with syncopal event; unclear etiology. No syncope throughout admission. evaluated by neurology, cardiology. cardiology recommends holter monitor, and outpatient stress no futher cardiac testing now. vision in left eye is back to baseline, has regained her peripheral vision in left eye. Facial numbness has resolved. Orthostatics found to be negative Neurology evaluation did not feel patient's symptoms were caused by stroke, TIA or seizure Head CT negative, aneurysm not visible, brain MRI/MRA show no acute infarct, no flow-limiting stenosis. There was noted to have a possible aneurysm of right cavernous ICA, CTA of the head was ordered and completed for further evaluation. Plain head CT showed no acute intracranial abnormality and no change from prior. Echocardiogram with LVEF of 60%, mild LV DD, mild to moderate AR, mild TR and no evidence of PFO. Carotids shows right RCA with 40-59% stenosis, left ICA with nonstenotic Continue antiplatelet therapy Patient instructed to follow-up with PCP in one week, additionally, instructed to follow with cardiology in 3-4 weeks for Holter monitor and outpatient stress test. She has been informed that she should return to the emergency department showed syncope/near syncopal symptoms resume. Patient is in agreement and verbalizes understanding. Denies any further questions at this time. She is medically stable for discharge. Qualifiers: Syncope type: unspecified Qualified Code(s): R55 - Syncope and collapse (2) CKD (chronic kidney disease), stage III Priority: Secondary Status: Chronic Assessment and Plan: Improved Sr Cr 0.98 Follows with nephrology outpatient (3) COPD (chronic obstructive pulmonary disease) Priority: Secondary Status: Chronic Assessment and Plan: Chronic. Stable.No acute exacerbation. Qualifiers: COPD type: unspecified COPD Qualified Code(s): J44.9 - Chronic obstructive pulmonary disease, unspecified (4) HTN (hypertension) Priority: Secondary Status: Chronic Assessment and Plan: Stable, continue home anti-HTN medications upon discharge Qualifiers: Hypertension type: essential hypertension Qualified Code(s): I10 - Essential (primary) hypertension (5) DVT prophylaxis Priority: Secondary Status: Acute (6) Tobacco abuse counseling Priority: Secondary Status: Chronic (7) Difficulty swallowing Priority: Secondary Status: Acute Assessment and Plan: Difficulty swallowing liquids for the past 2-3 months Speech therapy evaluation recommended GI consult with concern for esophageal stricture GI consult today recommend possible dilation as outpatient Instructed to follow up with GI office one week after discharge, patient will need to hold the Plavix prior to any procedures. This has been relayed to the patient and she verbalizes understanding. Qualifiers: Dysphagia type: unspecified Qualified Code(s): R13.10 - Dysphagia, unspecified (8) Left facial numbness Priority: Secondary Status: Resolved Assessment and Plan: Resolved (9) Abdominal pain Priority: Secondary Status: Acute Assessment and Plan: Patient reports epigastric and left upper quadrant swelling, and tenderness. Today she is reporting that the tenderness to palpation is improving but she is continuing to endorse pain radiating around the left mid back. Abdomen and pelvis CT negative, mild stool load seen in the colon, scattered colonic diverticuli with no bowel obstruction. Borderline bladder wall thickening, correlate with UTI. Patient is able to tolerate food and fluid without difficulty Follow-up with GI within 1 week of discharge Qualifiers: Abdominal location: right lower quadrant Qualified Code(s): R10.31 - Right lower quadrant pain Hospital course: Ms. Garcia is a 57 year old female Please see assessment and plan for hospital course Discharge discussed with: patient, nurse, case management - Time Spent with Patient Total time spent providing and/or coordinating discharge services: Less than 30 minutes - Discharge Medications Home Medications: Albuterol Sulfate [Proair Hfa] 2 puff IH Q4-6H PRN 09/28/15 [History] Budesonide/Formoterol 160/4.5 [Symbicort 160/4.5] 2 puff IH BIDR 06/11/16 [ History] Aspirin [Lo-Dose Aspirin EC] 81 mg PO DAILY #30 tablet. 06/12/16 [Rx] Clopidogrel Bisulfate [Plavix] 75 mg PO DAILY #30 tablet 06/12/16 [Rx] Gabapentin [Neurontin] 300 mg PO TID PRN 03/13/17 [History] Cilostazol [Pletal] 100 mg PO BID 03/14/17 [History] Lovastatin [Mevacor] 20 mg PO HS 03/14/17 [History] Omeprazole [PriLOSEC] 20 mg PO DAILY #30 capsule. 03/14/17 [Rx] Umeclidinium [place] [Incruse Ellipta] 1 puff IH DAILY 03/14/17 [History] Fluticasone Propionate Nasal [Flonase] 2 spray NS DAILY #1 bottle 08/20/17 [Rx] predniSONE [PredniSONE] 20 mg PO DAILY 5 Days #7 tablet 08/20/17 [Rx] Lisinopril [Zestril] 40 mg PO DAILY 08/23/17 [History] Allergies/Adverse Reactions: 3 Allergy/AdvReac Type Severity Reaction Status Date / Time bupropion [From Wellbutrin] AdvReac Agitated Verified 08/23/17 14:27 hydrocodone [From [place]] AdvReac Nausea Verified 08/23/17 14:27 pregabalin [From Lyrica] AdvReac Nausea Verified 08/23/17 14:27 Date of admission: 08/23/17 17:53 Primary care physician: Trav Garcia Consults: 08/23/17 18:32 Consult to [employer] [CONS] Routine Reason for SW Consult: Please assess patient for possible home needs for post -discharge planning. 08/23/17 20:46 Consult to Gastroenterology [CONS] Routine Consulting Provider: Gastroenterology Danyell Reason for Consult: Dysphagia work-up needed d/t inability to swallow for the past week. R/o oropharyngeal dysphagia versus esophagela dysphagia. Pt. reports removal of esophageal polyp several years ago. Call Completed: No 08/24/17 08:24 Consult to Speech Therapy [CONS] Routine Comment: Evaluate, develop and implement POC Reason for Consult: failed bedside swallow eval in ER Call Completed: Yes 08/25/17 08:37 Consult to Cardiology [CONS] Routine Comment: Consulting Provider: Cardiology Danyell Reason for Consult: eval for cardiogenic syncope Time Notified: 08:38 Call Completed: Yes Discharging clinician: Tad Landry Anticipated date of discharge: 08/26/17 - Constitutional Vitals: Temp Pulse Resp BP Pulse Ox 97.6 F 84 18 125/81 92 08/26/17 12:06 08/26/17 12:06 08/26/17 12:06 08/26/17 12:06 08/26/17 12:06 General appearance: Present: cooperative, mild distress, A&O X 3, pleasant, obese, answers questions appropriately - Head Head exam: Present: atraumatic, normocephalic - Eye Eye exam: Present: PERRL, conjuntiva pink, sclera anicteric Pupils: Present: PERRL - Neck Neck exam general surgery: Present: supple, trachea midline. Absent: lymphadenopathy - Respiratory Respiratory exam: Present: CTAB. Absent: accessory muscle use, rales, rhonchi, wheezes - Cardiovascular Cardiovascular exam: Present: RRR, +S1, +S2. Absent: diastolic murmur, gallop, rubs, systolic murmur - GI/Abdominal GI/Abdominal exam: Present: normal bowel sounds, soft, no peritoneal signs. Absent: distended, tenderness - Extremities Exam Extremities exam: Present: warm, radial pulses palpable and symmetrical. Absent : calf tenderness, cyanotic, pedal edema - Neurological Exam Neurological exam: Present: CN II-XII intact, oriented X3, no focal deficits. Absent: pronater drift, facial droop, speech deficit - Skin Skin exam: Present: dry, intact - Patient Status Disposition: Home, Self-Care Condition: Good Overall status at discharge: patient is progressing back to baseline - Discharge Instructions Follow Up With: Trav Garcia MD [Primary Care Provider] - Additional Instructions: Take your medications as directed. REturn to the ER as needed for any other problems or concerns, or if your symptoms return or worsen. Return to your normal diet and activities as tolerated. - Diet and Activity Activity: increase activity as tolerated, resume usual activities as tolerated Diet: advance to your usual diet
[2017-08-26] MEDS ORDERED: predniSONE 20 MG TABLET PO ONE (17:13)
--- NOTE | 2017-08-27 06:39 | Electrocardiograph Report ---
[address] [address] Test Date: 2017-08-23 Pat Name: Lorna Garcia Department: 104 Room: 3B21 Gender: F Capsule Maker: TMR : 1960 Requested By: Choco Dodd Order Number: [id number] Reading MD: Juan Mckinney Measurements Intervals [place] Rate: 87 P: 61 OK: 153 QRS: 23 QRSD: 85 T: 54 QT: 341 QTc: 385 Interpretive Statements SINUS RHYTHM BASELINE ARTIFACT Electronically Signed On 08-27-2017 6:38:06 EDT by Juan Mckinney
--- NOTE | 2017-08-27 08:55 | Electrocardiograph Report ---
[employer] [facility] Test Date: 2017-08-23 Pat Name: Lorna Garcia Department: 104 Room: 3B21 Gender: F Director Adult: TMAmanda : 1960 Requested By: Donovan Linares Order Number: [id number] Reading MD: James Street Measurements Intervals [place] Rate: 90 P: 51 IA: 148 QRS: 3 QRSD: 86 T: 52 QT: 328 QTc: 376 Interpretive Statements SINUS RHYTHM WITH OCCASIONAL ECTOPIC PREMATURE COMPLEXES INTERPRETATION BASED ON A DEFAULT AGE OF 40 YEARS Electronically Signed On 08-27-2017 8:53:[address]
== END 2017-08-26 14:12 | disposition home or self-care (01) | DRG 204 ==
LOC: 3BNU 12:48 → EMEROO 12:48 → 3BNU 18:05
PROVIDERS: ADMIT Internal Medicine Nephrology; ATTEND Internal Medicine Nephrology

== ENCOUNTER 2020-09-03 12:50 | Inpatient (IN) ==
[2020-09-03] MEDS ORDERED: Isovue-370 500 ML BOTTLE IVP ONE (13:21)
[2020-09-03] MEDS ORDERED: *HR* Heparin 5,000 UNIT/ML VIAL IVP PRN ×2 (13:23)
[2020-09-03] MEDS ORDERED: *HR* Heparin 5,000 UNIT/ML VIAL IVP ONE (13:23)
[2020-09-03] MEDS ORDERED: 0.9 % Sodium Chloride 1,000 ML IVC ONE (13:24)
[2020-09-03 13:46] LABS: Basophils # 0.1 K/mcL (0.0-0.2); Basophils % 0.7 %; Eosinophils # 0.3 K/mcL (0.0-0.6); Eosinophils % 3.2 %; Hematocrit 44.6 % (35.3-44.9); Hemoglobin 14.4 g/dL (11.5-15.4); Immature Granulocytes % 0.3 % (0-4); Lymphocytes # 3.7 K/mcL (0.6-4.6); Lymphocytes % 34.4 %; Mean Corpuscular HGB Conc 32.3 g/dL (31.6-35.5); Mean Corpuscular Hemoglobin 32.1 pg (28.0-33.3); Mean Corpuscular Volume 99.6 fL (83.0-100.0); Mean Platelet Volume 9.7 fL (9.4-12.4); Monocytes # 0.7 K/mcL (0.0-1.3); Monocytes % 6.2 %; Neutrophils # 5.9 K/mcL (1.6-8.9); Platelet Count 165 K/mcL (140-400); Red Blood Count 4.48 M/mcL (3.82-4.97); Red Cell Distribution Width 13.8 % (11.5-14.5); Segmented Neutrophils % 55.2 %; White Blood Count 10.7 K/mcL (4.3-11.1)
[2020-09-03] MEDS: Heparin 25,000UNIT/250ML 1/2NS 25,000 UNIT/250 ML IV.SOLN IVC SCH (13:46)
[2020-09-03 14:09] LABS: Alanine Aminotransferase 11 Units/L (7-52); Albumin 3.6 g/dL (3.5-5.7); Albumin/Globulin Ratio 1.3 (1.1-2.2); Alkaline Phosphatase 166 Units/L (34-104); Aspartate Amino Transferase 16 Units/L (13-39); BUN/Creatinine Ratio 12 (6-26); Bilirubin,Direct 0.1 mg/dL (0.0-0.2); Bilirubin,Indirect 0.3 mg/dL (0.0-1.0); Bilirubin,Total 0.4 mg/dL (0.3-1.0); Blood Urea Nitrogen 13 mg/dL (8-23); Calcium 8.8 mg/dL (8.6-10.3); Carbon Dioxide 23 mEq/L (23-29); Chloride 106 mEq/L (98-107); Globulin 2.7 g/dL (2.4-3.5); Glucose 97 mg/dL (70-105); Osmolality,Calculated 282 (280-300); Potassium 4.4 mEq/L (3.5-5.1); Sodium 136 mEq/L (136-145); Total Protein 6.3 g/dL (6.4-8.9); Troponin I < 0.03 ng/mL (< 0.04); eGFR For African Americans > 60 (> 60); eGFR For Non-African Americans 51 (> 60)
[2020-09-03 14:31] LABS: Prothrombin Time 11.2 Seconds (9.4-12.1)
[2020-09-03 14:33] LABS: Activated Partial Thrombo Time 31.3 Seconds (26.0-36.0)
[2020-09-03 14:34] LABS: Heparin anti-factor XA UFH < 0.04 IU/mL (0.30-0.70)
[2020-09-03] MEDS ORDERED: Ondansetron ODT 4 MG TAB.RAPDIS SL PRN (15:25)
[2020-09-03] MEDS ORDERED: Aspirin 325 MG TABLET PO ONE (15:29)
[2020-09-03] MEDS ORDERED: Ringers Solution, Lactated 1,000 ML IVC ONE (15:30)
[2020-09-03] MEDS: Acetaminophen 325 MG TABLET PO PRN (17:50)
[2020-09-03] MEDS ORDERED: Naloxone 0.4 MG/ML INJ IVP PRN (20:05)
[2020-09-03] MEDS: Ketorolac 15 MG/ML VIAL IVP PRN (20:39)
[2020-09-04] MEDS: *HR* OxyCODONE Immed Rel 5 MG TABLET PO PRN ×2 (00:05→17:57)
[2020-09-04 04:08] LABS: Hematocrit 39.9 % (35.3-44.9); Mean Corpuscular HGB Conc 31.8 g/dL (31.6-35.5); Mean Corpuscular Hemoglobin 32.2 pg (28.0-33.3); Mean Corpuscular Volume 101.3 fL (83.0-100.0); Mean Platelet Volume 9.4 fL (9.4-12.4); Platelet Count 134 K/mcL (140-400); Red Blood Count 3.94 M/mcL (3.82-4.97); Red Cell Distribution Width 14.1 % (11.5-14.5); White Blood Count 8.4 K/mcL (4.3-11.1)
[2020-09-04 04:11] LABS: Hemoglobin 12.7 g/dL (11.5-15.4)
[2020-09-04 04:29] LABS: Calcium 8.5 mg/dL (8.6-10.3); Potassium 4.6 mEq/L (3.5-5.1)
[2020-09-04] MEDS: Aspirin 81 MG TAB.CHEW PO SCH (07:59)
[2020-09-04] MEDS: Ketorolac 15 MG/ML VIAL IVP PRN (07:59)
[2020-09-04] MEDS: Acetaminophen 325 MG TABLET PO PRN (10:55)
[2020-09-04] MEDS ORDERED: 0.9 % Sodium Chloride 1,000 ML IV ONE (11:42)
[2020-09-04] MEDS: Heparin 25,000UNIT/250ML 1/2NS 25,000 UNIT/250 ML IV.SOLN IVC SCH (12:58)
[2020-09-05 04:01] LABS: Basophils # 0.1 K/mcL (0.0-0.2); Basophils % 0.7 %; Eosinophils # 0.5 K/mcL (0.0-0.6); Hematocrit 39.4 % (35.3-44.9); Hemoglobin 12.7 g/dL (11.5-15.4); Immature Granulocytes % 0.3 % (0-4); Lymphocytes # 3.9 K/mcL (0.6-4.6); Lymphocytes % 43.6 %; Mean Corpuscular HGB Conc 32.2 g/dL (31.6-35.5); Mean Corpuscular Hemoglobin 32.2 pg (28.0-33.3); Mean Corpuscular Volume 99.7 fL (83.0-100.0); Mean Platelet Volume 9.7 fL (9.4-12.4); Monocytes # 0.6 K/mcL (0.0-1.3); Monocytes % 6.4 %; Neutrophils # 3.8 K/mcL (1.6-8.9); Platelet Count 142 K/mcL (140-400); Red Blood Count 3.95 M/mcL (3.82-4.97); Red Cell Distribution Width 13.9 % (11.5-14.5); White Blood Count 8.9 K/mcL (4.3-11.1)
[2020-09-05 04:22] LABS: Alanine Aminotransferase 9 Units/L (7-52); Albumin 3.1 g/dL (3.5-5.7); Albumin/Globulin Ratio 1.3 (1.1-2.2); Alkaline Phosphatase 134 Units/L (34-104); Aspartate Amino Transferase 15 Units/L (13-39); BUN/Creatinine Ratio 13 (6-26); Bilirubin,Total 0.4 mg/dL (0.3-1.0); Blood Urea Nitrogen 12 mg/dL (8-23); Calcium 8.6 mg/dL (8.6-10.3); Carbon Dioxide 23 mEq/L (23-29); Chloride 108 mEq/L (98-107); Globulin 2.3 g/dL (2.4-3.5); Glucose 70 mg/dL (70-105); Osmolality,Calculated 282 (280-300); Potassium 4.2 mEq/L (3.5-5.1); Sodium 137 mEq/L (136-145); Total Protein 5.4 g/dL (6.4-8.9); eGFR For African Americans > 60 (> 60); eGFR For Non-African Americans > 60 (> 60)
[2020-09-05] MEDS ORDERED: *HR* FentaNYL (PF) 100 MCG/2 ML VIAL ONE ×3 (06:29→09:28)
[2020-09-05] MEDS ORDERED: *HR* Propofol 200 MG/20 ML VIAL IVP ONE (06:29)
[2020-09-05] MEDS ORDERED: *HR* Heparin 5,000 UNIT/ML VIAL ONE (06:30)
[2020-09-05] MEDS ORDERED: *HR* Rocuronium Bromide 50 MG/5 ML VIAL ONE ×2 (06:30→09:03)
[2020-09-05] MEDS ORDERED: Lidocaine -MPF 2% 2 ML VIAL ONE (06:30)
[2020-09-05] MEDS ORDERED: Ondansetron 4 MG/2 ML VIAL ONE (06:30)
[2020-09-05] MEDS ORDERED: Lidocaine -MPF 4% 5 ML AMPUL ONE (06:38)
[2020-09-05] MEDS ORDERED: *HR* Phenylephrine 10 MG/ML VIAL ONE (06:53)
[2020-09-05] MEDS ORDERED: Albumin Human 5% 12.5 GM/250 ML IV.SOLN ONE (07:33)
[2020-09-05] MEDS ORDERED: NiCARdipine 2.5 MG/10 ML Syringe IVPB ONE (07:34)
[2020-09-05] MEDS ORDERED: *HR* Vasopressin 20 UNIT/ML VIAL ONE (07:34)
[2020-09-05] MEDS ORDERED: Heparin 1,000 UNITS/500 mL 500 ML ONE (07:44)
[2020-09-05] MEDS ORDERED: Vancomycin 1,000 MG VIAL ONE (07:44)
[2020-09-05] MEDS ORDERED: ceFAZolin 2,000 MG in Water for inj. (sterile) 20 ML IVP ONE (07:51)
[2020-09-05] MEDS ORDERED: Vancomycin 1,000 MG, Sodium Chloride IRRigation 1,000 ML IR ONE (08:15)
[2020-09-05] MEDS ORDERED: Albuterol 2.5 MG/3 ML NEBULIZER IH PRN (08:26)
[2020-09-05] MEDS ORDERED: Ondansetron 4 MG/2 ML VIAL IVP PRN ×2 (08:26→11:26)
[2020-09-05] MEDS ORDERED: *HR* OxyCODONE Immed Rel 5 MG TABLET PO PRN (08:26)
[2020-09-05] MEDS ORDERED: EPHEDrine 50 MG/ML VIAL ONE (08:55)
[2020-09-05] MEDS ORDERED: Vancomycin 1,500 MG/265 ML IV.SOLN IVPB ONE ×2 (09:00→20:30)
[2020-09-05] MEDS ORDERED: *HR* HYDROmorphone (PF) 1 MG/ML SYRINGE IVP PRN (09:19)
[2020-09-05] MEDS ORDERED: Sugammadex Sodium 200 MG/2 ML VIAL IV ONE (09:24)
[2020-09-05] MEDS: Aspirin 81 MG TAB.CHEW PO SCH (10:09)
[2020-09-05] MEDS ORDERED: Naloxone 0.4 MG/ML INJ IVP PRN (11:26)
[2020-09-05] MEDS ORDERED: 0.9 % Sodium Chloride 1,000 ML IVC SCH (11:26)
[2020-09-05] MEDS ORDERED: *HR* Labetalol 20 MG/4 ML SYRINGE IVP PRN (11:26)
[2020-09-05] MEDS ORDERED: Acetaminophen 325 MG TABLET PO PRN (11:26)
[2020-09-05] MEDS: Heparin 25,000UNIT/250ML 1/2NS 25,000 UNIT/250 ML IV.SOLN IVC SCH (11:41)
[2020-09-05] MEDS: *HR* OxyCODONE Immed Rel 5 MG TABLET PO PRN ×2 (12:23→18:15)
[2020-09-05] MEDS: *HR* Metoprolol 5 MG/5 ML VIAL IVP SCH ×3 (13:15→23:55)
[2020-09-05] MEDS: *HR* HYDROcodone/Acet 5/325 mg TABLET PO PRN ×2 (14:41→21:35)
[2020-09-05] MEDS: CeFAZolin 2 GM/120 ML BAG IVPB SCH ×2 (16:07→23:56)
[2020-09-06] MEDS: *HR* HYDROcodone/Acet 5/325 mg TABLET PO PRN ×2 (03:39→16:59)
[2020-09-06 05:04] LABS: Basophils % 0.2 %; Hematocrit 33.7 % (35.3-44.9); Immature Granulocytes % 0.3 % (0-4); Lymphocytes # 2.1 K/mcL (0.6-4.6); Lymphocytes % 20.3 %; Mean Corpuscular HGB Conc 31.2 g/dL (31.6-35.5); Mean Corpuscular Hemoglobin 31.5 pg (28.0-33.3); Mean Corpuscular Volume 101.2 fL (83.0-100.0); Mean Platelet Volume 9.6 fL (9.4-12.4); Monocytes # 0.7 K/mcL (0.0-1.3); Monocytes % 6.4 %; Neutrophils # 7.5 K/mcL (1.6-8.9); Platelet Count 137 K/mcL (140-400); Red Blood Count 3.33 M/mcL (3.82-4.97); Segmented Neutrophils % 72.8 %; White Blood Count 10.3 K/mcL (4.3-11.1)
[2020-09-06 05:14] LABS: Hemoglobin 10.5 g/dL (11.5-15.4)
[2020-09-06 05:18] LABS: BUN/Creatinine Ratio 13 (6-26); Blood Urea Nitrogen 12 mg/dL (8-23); Calcium 8.4 mg/dL (8.6-10.3); Carbon Dioxide 21 mEq/L (23-29); Chloride 106 mEq/L (98-107); Glucose 82 mg/dL (70-105); Osmolality,Calculated 279 (280-300); Potassium 4.7 mEq/L (3.5-5.1); Sodium 135 mEq/L (136-145); eGFR For African Americans > 60 (> 60); eGFR For Non-African Americans > 60 (> 60)
[2020-09-06] MEDS: *HR* Metoprolol 5 MG/5 ML VIAL IVP SCH ×3 (05:58→16:55)
[2020-09-06] MEDS: *HR* Heparin 5,000 UNIT/ML VIAL SQ SCH ×2 (06:03→16:58)
[2020-09-06] MEDS ORDERED: Tiotropium 10 INH DOSE IH ONE (07:29)
[2020-09-06] MEDS: Tiotropium 10 INH DOSE IH SCH (07:56)
[2020-09-06] MEDS: Aspirin 81 MG TAB.CHEW PO SCH (08:00)
[2020-09-06] MEDS: *HR* OxyCODONE Immed Rel 5 MG TABLET PO PRN (11:15)
[2020-09-07] MEDS: *HR* OxyCODONE Immed Rel 5 MG TABLET PO PRN ×2 (00:12→07:50)
[2020-09-07] MEDS: *HR* Metoprolol 5 MG/5 ML VIAL IVP SCH ×3 (01:35→10:48)
[2020-09-07 01:43] LABS: Basophils # 0.1 K/mcL (0.0-0.2); Basophils % 0.6 %; Eosinophils # 0.5 K/mcL (0.0-0.6); Hematocrit 31.2 % (35.3-44.9); Hemoglobin 10.4 g/dL (11.5-15.4); Immature Granulocytes % 0.2 % (0-4); Lymphocytes # 3.7 K/mcL (0.6-4.6); Lymphocytes % 35.4 %; Mean Corpuscular HGB Conc 33.3 g/dL (31.6-35.5); Mean Corpuscular Hemoglobin 32.9 pg (28.0-33.3); Mean Corpuscular Volume 98.7 fL (83.0-100.0); Mean Platelet Volume 10.1 fL (9.4-12.4); Monocytes # 0.7 K/mcL (0.0-1.3); Monocytes % 6.7 %; Neutrophils # 5.4 K/mcL (1.6-8.9); Platelet Count 134 K/mcL (140-400); Red Blood Count 3.16 M/mcL (3.82-4.97); Red Cell Distribution Width 13.8 % (11.5-14.5); Segmented Neutrophils % 52.1 %; White Blood Count 10.4 K/mcL (4.3-11.1)
[2020-09-07 02:06] LABS: BUN/Creatinine Ratio 15 (6-26); Blood Urea Nitrogen 14 mg/dL (8-23); Calcium 8.6 mg/dL (8.6-10.3); Carbon Dioxide 25 mEq/L (23-29); Chloride 106 mEq/L (98-107); Glucose 85 mg/dL (70-105); Osmolality,Calculated 282 (280-300); Potassium 4.1 mEq/L (3.5-5.1); Sodium 136 mEq/L (136-145); eGFR For African Americans > 60 (> 60); eGFR For Non-African Americans > 60 (> 60)
[2020-09-07] MEDS: *HR* Heparin 5,000 UNIT/ML VIAL SQ SCH (05:25)
[2020-09-07] MEDS: Tiotropium 10 INH DOSE IH SCH (07:26)
[2020-09-07] MEDS: Aspirin 81 MG TAB.CHEW PO SCH (07:49)
[2020-09-07 10:41] VITALS: BP 90/55
[2020-09-07] MEDS: *HR* HYDROcodone/Acet 5/325 mg TABLET PO PRN (11:32)
[2020-09-07] MEDS ORDERED: Budesonide/Formoterol 80/4.5 1 PUFF INH IH SCH (22:00)
== END 2020-09-07 15:10 | disposition home or self-care (01) | DRG 169 ==
LOC: EMEROOARM 12:50 → 2NNU 12:50 → SUATTDRO 15:55 → 2NNU 16:40 → SUATTDRO 09-05 10:06
PROVIDERS: ADMIT Internal Medicine; ATTEND Internal Medicine

== ENCOUNTER 2020-10-05 08:30 | Inpatient (IN) ==
[2020-10-05] MEDS ORDERED: CeFAZolin Syr 2,000MG/20 ML 2,000 MG/20 ML SYRINGE IVPB ONE (08:48)
[2020-10-05] MEDS ORDERED: Ringers Solution, Lactated 1,000 ML IVC SCH (09:00)
[2020-10-05] MEDS ORDERED: *HR* Meperidine 25 MG/ML SYRINGE IVP PRN (09:10)
[2020-10-05] MEDS ORDERED: *HR* HYDROmorphone PF 0.5 MG/0.5 ML SYRINGE IVP PRN (09:10)
[2020-10-05] MEDS ORDERED: Acetaminophen IV 1,000 MG/100 ML BAG IVPB ONE (09:10)
[2020-10-05] MEDS ORDERED: Ondansetron 4 MG/2 ML VIAL IVP PRN ×2 (09:10→17:34)
[2020-10-05] MEDS ORDERED: *HR* FentaNYL (PF) 100 MCG/2 ML VIAL ONE (10:23)
[2020-10-05] MEDS ORDERED: *HR* Propofol 200 MG/20 ML VIAL IVP ONE (10:23)
[2020-10-05] MEDS ORDERED: EPHEDrine 50 MG/ML VIAL ONE (12:12)
[2020-10-05] MEDS ORDERED: *HR* HYDROMORPHONE 2 MG/ML VIAL ONE (12:24)
[2020-10-05] MEDS ORDERED: Sugammadex Sodium 200 MG/2 ML VIAL IV ONE (13:08)
[2020-10-05] MEDS ORDERED: 0.9 % Sodium Chloride 1,000 ML IVC SCH (17:34)
[2020-10-05] MEDS: Ipratropium/Albuterol Neb 3 ML IH SCH ×3 (18:07→23:16)
[2020-10-05] MEDS: Gabapentin 300 MG CAPSULE PO SCH ×2 (18:48→19:57)
[2020-10-05] MEDS: *HR* Heparin 5,000 UNIT/ML VIAL SQ SCH ×2 (18:48→22:43)
[2020-10-05] MEDS: *HR* HYDROcodone/Acet 5/325 mg TABLET PO PRN ×2 (18:49→22:45)
[2020-10-05] MEDS: Famotidine 20 MG TABLET PO SCH (19:57)
[2020-10-05] MEDS: Sennosides/Docusate Sodium TABLET PO SCH (19:57)
[2020-10-05] MEDS: Budesonide/Formoterol 160/4.5 1 PUFF INH IH SCH (20:30)
[2020-10-06 02:24] LABS: Hematocrit 37.1 % (35.3-44.9); Hemoglobin 11.9 g/dL (11.5-15.4); Mean Corpuscular HGB Conc 32.1 g/dL (31.6-35.5); Mean Corpuscular Hemoglobin 32.3 pg (28.0-33.3); Mean Corpuscular Volume 100.8 fL (83.0-100.0); Mean Platelet Volume 10.4 fL (9.4-12.4); Platelet Count 150 K/mcL (140-400); Red Blood Count 3.68 M/mcL (3.82-4.97); Red Cell Distribution Width 14.4 % (11.5-14.5)
[2020-10-06 02:57] LABS: BUN/Creatinine Ratio 12 (6-26); Blood Urea Nitrogen 12 mg/dL (8-23); Calcium 8.4 mg/dL (8.6-10.3); Carbon Dioxide 21 mEq/L (23-29); Chloride 107 mEq/L (98-107); Glucose 140 mg/dL (70-105); Iron 11 mcg/dL (50-170); Magnesium 1.8 mg/dL (1.6-2.6); Osmolality,Calculated 284 (280-300); Potassium 5.4 mEq/L (3.5-5.1); Sodium 136 mEq/L (136-145); eGFR For African Americans > 60 (> 60); eGFR For Non-African Americans 56 (> 60)
[2020-10-06 03:10] LABS: % Iron Saturation 5 % (15-50); Transferrin 162 mg/dL (203-362)
[2020-10-06] MEDS: Ipratropium/Albuterol Neb 3 ML IH SCH ×5 (03:19→20:14)
[2020-10-06] MEDS: *HR* HYDROcodone/Acet 5/325 mg TABLET PO PRN ×4 (03:54→20:31)
[2020-10-06] MEDS: *HR* Heparin 5,000 UNIT/ML VIAL SQ SCH ×3 (05:17→21:59)
[2020-10-06] MEDS: Budesonide/Formoterol 160/4.5 1 PUFF INH IH SCH ×2 (07:42→20:13)
[2020-10-06] MEDS: Tiotropium 10 INH DOSE IH SCH (07:43)
[2020-10-06] MEDS ORDERED: Furosemide 40 MG/4 ML VIAL IVP ONE (09:08)
[2020-10-06] MEDS: Aspirin Enteric Coated 81 MG Tablet PO SCH (09:21)
[2020-10-06] MEDS: Famotidine 20 MG TABLET PO SCH ×2 (09:21→19:42)
[2020-10-06] MEDS: Sennosides/Docusate Sodium TABLET PO SCH ×2 (09:21→19:42)
[2020-10-06] MEDS: Gabapentin 300 MG CAPSULE PO SCH ×3 (09:22→19:42)
[2020-10-06] MEDS ORDERED: Amiodarone Premix 150 MG/100 ML BAG IVPB ONE (13:46)
[2020-10-06] MEDS ORDERED: Amiodarone Premix 360 MG/200 ML BAG IVC ONE (13:50)
[2020-10-06] MEDS: Amiodarone Premix 360 MG/200 ML BAG IVC SCH (19:57)
[2020-10-07] MEDS: Ipratropium/Albuterol Neb 3 ML IH SCH ×7 (00:02→23:51)
[2020-10-07 01:52] LABS: Hematocrit 37.8 % (35.3-44.9); Hemoglobin 11.7 g/dL (11.5-15.4); Mean Corpuscular Hemoglobin 31.6 pg (28.0-33.3); Mean Corpuscular Volume 102.2 fL (83.0-100.0); Mean Platelet Volume 10.2 fL (9.4-12.4); Platelet Count 178 K/mcL (140-400); Red Cell Distribution Width 14.6 % (11.5-14.5); White Blood Count 15.3 K/mcL (4.3-11.1)
[2020-10-07 02:13] LABS: Calcium 8.7 mg/dL (8.6-10.3); Magnesium 2.3 mg/dL (1.6-2.6); Potassium 4.7 mEq/L (3.5-5.1)
[2020-10-07] MEDS: *HR* HYDROcodone/Acet 5/325 mg TABLET PO PRN ×4 (03:15→20:27)
[2020-10-07] MEDS: *HR* Heparin 5,000 UNIT/ML VIAL SQ SCH ×3 (05:05→20:23)
[2020-10-07] MEDS: Budesonide/Formoterol 160/4.5 1 PUFF INH IH SCH ×2 (07:29→20:06)
[2020-10-07] MEDS: Tiotropium 10 INH DOSE IH SCH (07:30)
[2020-10-07] MEDS: Amiodarone Premix 360 MG/200 ML BAG IVC SCH (07:55)
[2020-10-07] MEDS: Sennosides/Docusate Sodium TABLET PO SCH ×2 (08:00→20:23)
[2020-10-07] MEDS: Famotidine 20 MG TABLET PO SCH ×2 (08:00→20:23)
[2020-10-07] MEDS: Aspirin Enteric Coated 81 MG Tablet PO SCH (08:00)
[2020-10-07] MEDS: Gabapentin 300 MG CAPSULE PO SCH ×3 (08:00→20:23)
[2020-10-07] MEDS ORDERED: Amiodarone Premix 150 MG/100 ML BAG IVPB STA (12:47)
[2020-10-07] MEDS ORDERED: Amiodarone Premix 150 MG/100 ML BAG IVPB ONE (12:51)
[2020-10-07] MEDS: *HR* Amiodarone 200 MG TABLET PO SCH ×2 (15:09→20:22)
[2020-10-07] MEDS ORDERED: *HR* Digoxin 0.5 MG/2 ML AMPUL IVP SCH (18:00)
[2020-10-07] MEDS: *HR* Digoxin 0.5 MG/2 ML AMPUL IVP SCH ×2 (18:20→23:15)
[2020-10-08] MEDS: *HR* HYDROcodone/Acet 5/325 mg TABLET PO PRN ×3 (00:29→13:14)
[2020-10-08] MEDS: Ipratropium/Albuterol Neb 3 ML IH SCH ×6 (04:05→23:29)
[2020-10-08] MEDS: *HR* Heparin 5,000 UNIT/ML VIAL SQ SCH ×3 (04:28→21:42)
[2020-10-08] MEDS: Budesonide/Formoterol 160/4.5 1 PUFF INH IH SCH ×2 (07:51→19:47)
[2020-10-08] MEDS: Tiotropium 10 INH DOSE IH SCH (07:51)
[2020-10-08 07:56] LABS: Calcium 8.6 mg/dL (8.6-10.3); Digoxin 0.8 ng/mL (0.8-2.0); Magnesium 2.2 mg/dL (1.6-2.6); Potassium 4.8 mEq/L (3.5-5.1)
[2020-10-08] MEDS: Famotidine 20 MG TABLET PO SCH ×2 (09:24→21:42)
[2020-10-08] MEDS: Gabapentin 300 MG CAPSULE PO SCH ×3 (09:24→21:42)
[2020-10-08] MEDS: Sennosides/Docusate Sodium TABLET PO SCH ×2 (09:25→21:42)
[2020-10-08] MEDS: Aspirin Enteric Coated 81 MG Tablet PO SCH (09:25)
[2020-10-08] MEDS: *HR* Amiodarone 200 MG TABLET PO SCH ×3 (09:25→21:35)
[2020-10-08] MEDS: Furosemide 40 MG/4 ML VIAL IVP SCH (13:59)
[2020-10-08] MEDS: *HR* Digoxin 0.125 MG TABLET PO SCH (15:17)
[2020-10-08 20:35] LABS: Basophils % 0.2 %; Eosinophils # 0.1 K/mcL (0.0-0.6); Eosinophils % 1.2 %; Hematocrit 37.3 % (35.3-44.9); Hemoglobin 11.6 g/dL (11.5-15.4); Immature Granulocytes % 0.5 % (0-4); Lymphocytes # 1.2 K/mcL (0.6-4.6); Mean Corpuscular HGB Conc 31.1 g/dL (31.6-35.5); Mean Corpuscular Hemoglobin 31.5 pg (28.0-33.3); Mean Corpuscular Volume 101.4 fL (83.0-100.0); Monocytes # 0.8 K/mcL (0.0-1.3); Monocytes % 6.3 %; Neutrophils # 9.9 K/mcL (1.6-8.9); Platelet Count 160 K/mcL (140-400); Red Blood Count 3.68 M/mcL (3.82-4.97); Red Cell Distribution Width 14.3 % (11.5-14.5); Segmented Neutrophils % 81.8 %
[2020-10-08 20:54] LABS: Bilirubin,Direct 0.2 mg/dL (0.0-0.2); Bilirubin,Indirect 0.3 mg/dL (0.0-1.0); Bilirubin,Total 0.5 mg/dL (0.3-1.0); Calcium 8.9 mg/dL (8.6-10.3); Magnesium 2.1 mg/dL (1.6-2.6); Potassium 4.5 mEq/L (3.5-5.1)
[2020-10-08] MEDS ORDERED: Metoclopramide 10 MG/2 ML VIAL IVP PRN (21:20)
[2020-10-08] MEDS ORDERED: Bisacodyl 10 MG RECTAL SUPPOSITORY RC ONE (21:20)
[2020-10-09 01:10] LABS: Basophils % 0.2 %; Eosinophils # 0.1 K/mcL (0.0-0.6); Eosinophils % 0.6 %; Hematocrit 36.1 % (35.3-44.9); Hemoglobin 11.6 g/dL (11.5-15.4); Immature Granulocytes % 0.4 % (0-4); Lymphocytes # 1.6 K/mcL (0.6-4.6); Lymphocytes % 12.8 %; Mean Corpuscular HGB Conc 32.1 g/dL (31.6-35.5); Mean Corpuscular Hemoglobin 32.5 pg (28.0-33.3); Mean Corpuscular Volume 101.1 fL (83.0-100.0); Mean Platelet Volume 10.2 fL (9.4-12.4); Monocytes # 0.9 K/mcL (0.0-1.3); Monocytes % 7.1 %; Neutrophils # 9.8 K/mcL (1.6-8.9); Platelet Count 162 K/mcL (140-400); Red Blood Count 3.57 M/mcL (3.82-4.97); Red Cell Distribution Width 14.3 % (11.5-14.5); Segmented Neutrophils % 78.9 %; White Blood Count 12.5 K/mcL (4.3-11.1)
[2020-10-09] MEDS ORDERED: Amiodarone Premix 150 MG/100 ML BAG IVPB ONE (01:24)
[2020-10-09 01:42] LABS: Calcium 8.9 mg/dL (8.6-10.3); Magnesium 2.2 mg/dL (1.6-2.6); Potassium 4.5 mEq/L (3.5-5.1)
[2020-10-09] MEDS ORDERED: 0.9 % Sodium Chloride 250 ML ONE ×2 (01:58→02:43)
[2020-10-09] MEDS ORDERED: *HR* Metoprolol 5 MG/5 ML VIAL IVP ONE (03:00)
[2020-10-09] MEDS: Ipratropium/Albuterol Neb 3 ML IH SCH ×5 (03:34→20:06)
[2020-10-09] MEDS: *HR* Heparin 5,000 UNIT/ML VIAL SQ SCH ×4 (04:46→19:43)
[2020-10-09] MEDS ORDERED: Amiodarone Premix 360 MG/200 ML BAG IVC ONE (05:25)
[2020-10-09] MEDS: Budesonide/Formoterol 160/4.5 1 PUFF INH IH SCH ×2 (07:18→20:06)
[2020-10-09] MEDS: Tiotropium 10 INH DOSE IH SCH (07:19)
[2020-10-09] MEDS: Furosemide 40 MG/4 ML VIAL IVP SCH (08:11)
[2020-10-09] MEDS ORDERED: *HR* Amiodarone 200 MG TABLET PO SCH (09:00)
[2020-10-09] MEDS ORDERED: Metoprolol XL (24 HR) Succ 50 MG TAB.ER.24H PO SCH (09:00)
[2020-10-09] MEDS: *HR* Digoxin 0.125 MG TABLET PO SCH (10:03)
[2020-10-09] MEDS: Famotidine 20 MG TABLET PO SCH ×2 (10:03→20:43)
[2020-10-09] MEDS: Aspirin Enteric Coated 81 MG Tablet PO SCH (10:03)
[2020-10-09] MEDS: polyethylene glycoL 3350 17 GM POWD.PACK PO SCH (10:03)
[2020-10-09] MEDS: Sennosides/Docusate Sodium TABLET PO SCH ×2 (10:03→20:43)
[2020-10-09] MEDS: Gabapentin 300 MG CAPSULE PO SCH ×3 (10:03→20:43)
[2020-10-09] MEDS ORDERED: Perflutren Lipid Microsphere 1.3 ML in 0.9 % Sodium Chloride 8.7 ML IVP PRN (10:56)
[2020-10-09] MEDS: Amiodarone Premix 360 MG/200 ML BAG IVC SCH (12:03)
[2020-10-09] MEDS: *HR* Amiodarone 200 MG TABLET PO SCH (20:43)
[2020-10-09] MEDS: Levalbuterol Neb 1.25 MG/3 ML IH SCH (23:37)
[2020-10-10] MEDS: Amiodarone Premix 360 MG/200 ML BAG IVC SCH (01:55)
[2020-10-10] MEDS: Levalbuterol Neb 1.25 MG/3 ML IH SCH ×6 (03:55→23:30)
[2020-10-10] MEDS: *HR* Heparin 5,000 UNIT/ML VIAL SQ SCH (03:57)
[2020-10-10] MEDS: Budesonide/Formoterol 160/4.5 1 PUFF INH IH SCH ×2 (07:47→20:00)
[2020-10-10] MEDS: Tiotropium 10 INH DOSE IH SCH (07:47)
[2020-10-10] MEDS: polyethylene glycoL 3350 17 GM POWD.PACK PO SCH (08:21)
[2020-10-10] MEDS: Sennosides/Docusate Sodium TABLET PO SCH ×2 (08:21→21:08)
[2020-10-10] MEDS: Famotidine 20 MG TABLET PO SCH ×2 (08:21→21:11)
[2020-10-10] MEDS: Gabapentin 300 MG CAPSULE PO SCH ×3 (08:21→21:11)
[2020-10-10] MEDS: Aspirin Enteric Coated 81 MG Tablet PO SCH (08:21)
[2020-10-10] MEDS: *HR* Amiodarone 200 MG TABLET PO SCH ×2 (08:22→21:11)
[2020-10-10] MEDS ORDERED: Metoprolol XL (24 HR) Succ 50 MG TAB.ER.24H PO SCH ×2 (09:00)
[2020-10-10] MEDS: Furosemide 20 MG TABLET PO SCH (11:43)
[2020-10-10] MEDS: Apixaban 5 MG TABLET PO SCH (21:11)
[2020-10-11] MEDS: Levalbuterol Neb 1.25 MG/3 ML IH SCH ×2 (04:05→07:32)
[2020-10-11 06:46] LABS: Hematocrit 33.5 % (35.3-44.9); Hemoglobin 10.6 g/dL (11.5-15.4); Mean Corpuscular HGB Conc 31.6 g/dL (31.6-35.5); Mean Corpuscular Hemoglobin 31.4 pg (28.0-33.3); Mean Corpuscular Volume 99.1 fL (83.0-100.0); Mean Platelet Volume 9.9 fL (9.4-12.4); Platelet Count 189 K/mcL (140-400); Red Blood Count 3.38 M/mcL (3.82-4.97); Red Cell Distribution Width 13.8 % (11.5-14.5); White Blood Count 10.2 K/mcL (4.3-11.1)
[2020-10-11 07:02] LABS: BUN/Creatinine Ratio 21 (6-26); Blood Urea Nitrogen 22 mg/dL (8-23); Calcium 8.5 mg/dL (8.6-10.3); Carbon Dioxide 31 mEq/L (23-29); Chloride 96 mEq/L (98-107); Glucose 98 mg/dL (70-105); Magnesium 2.2 mg/dL (1.6-2.6); Osmolality,Calculated 283 (280-300); Potassium 4.7 mEq/L (3.5-5.1); Sodium 135 mEq/L (136-145); eGFR For African Americans > 60 (> 60); eGFR For Non-African Americans 53 (> 60)
[2020-10-11 07:31] VITALS: BP 90/68; PULSE 76; TEMP 97.6; O2SAT 88
[2020-10-11] MEDS: Budesonide/Formoterol 160/4.5 1 PUFF INH IH SCH (07:32)
[2020-10-11] MEDS: Tiotropium 10 INH DOSE IH SCH (07:33)
[2020-10-11] MEDS: Apixaban 5 MG TABLET PO SCH (08:28)
[2020-10-11] MEDS: Gabapentin 300 MG CAPSULE PO SCH (08:28)
[2020-10-11] MEDS: Famotidine 20 MG TABLET PO SCH (08:28)
[2020-10-11] MEDS: Sennosides/Docusate Sodium TABLET PO SCH (08:28)
[2020-10-11] MEDS: *HR* Amiodarone 200 MG TABLET PO SCH (08:28)
[2020-10-11] MEDS: polyethylene glycoL 3350 17 GM POWD.PACK PO SCH (08:29)
[2020-10-11] MEDS: Furosemide 20 MG TABLET PO SCH (08:29)
[2020-10-11] MEDS ORDERED: Furosemide 20 MG/2 ML VIAL IVP ONE (08:40)
== END 2020-10-11 09:47 | disposition home or self-care (01) | DRG 121 ==
LOC: SAMDAY 08:30 → 2NNU 17:18
PROVIDERS: ADMIT Thoracic Surgery (Cardiothoracic Vascular Surgery); ATTEND Thoracic Surgery (Cardiothoracic Vascular Surgery)

== ENCOUNTER 2020-12-25 10:29 | Observation (INO) ==
[2020-12-25] MEDS ORDERED: Ondansetron 4 MG/2 ML VIAL IVP ONE (11:00)
[2020-12-25] MEDS ORDERED: Ipratropium/Albuterol Neb 3 ML IH ONE (11:00)
[2020-12-25 11:07] LABS: Basophils % 0.2 %; Eosinophils % 0.2 %; Immature Granulocytes % 0.5 % (0-4); Immature Platelets 7.4 % (1.1-6.1); Lymphocytes % 53.5 %; Mean Corpuscular HGB Conc 32.4 g/dL (31.6-35.5); Mean Corpuscular Hemoglobin 30.8 pg (28.0-33.3); Mean Corpuscular Volume 95.2 fL (83.0-100.0); Mean Platelet Volume 10.9 fL (9.4-12.4); Monocytes # 0.4 K/mcL (0.0-1.3); Monocytes % 7.1 %; Neutrophils # 2.2 K/mcL (1.6-8.9); Red Blood Count 3.57 M/mcL (3.82-4.97); Red Cell Distribution Width 16.9 % (11.5-14.5); Segmented Neutrophils % 38.5 %; White Blood Count 5.6 K/mcL (4.3-11.1)
[2020-12-25 11:16] LABS: Prothrombin Time 11.2 Seconds (9.4-12.1)
[2020-12-25 11:18] LABS: Activated Partial Thrombo Time 33.5 Seconds (26.0-36.0)
[2020-12-25 11:29] LABS: Alanine Aminotransferase 18 Units/L (7-52); Albumin 2.5 g/dL (3.5-5.7); Albumin/Globulin Ratio 0.8 (1.1-2.2); Alkaline Phosphatase 118 Units/L (34-104); Aspartate Amino Transferase 108 Units/L (13-39); BUN/Creatinine Ratio 14 (6-26); Bilirubin,Direct 0.2 mg/dL (0.0-0.2); Bilirubin,Indirect 0.2 mg/dL (0.0-1.0); Bilirubin,Total 0.4 mg/dL (0.3-1.0); Blood Urea Nitrogen 14 mg/dL (8-23); Calcium 7.8 mg/dL (8.6-10.3); Carbon Dioxide 27 mEq/L (23-29); Chloride 97 mEq/L (98-107); Globulin 3.2 g/dL (2.4-3.5); Glucose 73 mg/dL (70-105); Osmolality,Calculated 279 (280-300); Potassium 3.9 mEq/L (3.5-5.1); Sodium 135 mEq/L (136-145); Total Protein 5.7 g/dL (6.4-8.9); Troponin I 0.05 ng/mL (< 0.04); eGFR For African Americans > 60 (> 60); eGFR For Non-African Americans 56 (> 60)
[2020-12-25] MEDS ORDERED: 0.9 % Sodium Chloride 500 ML IVC ONE (11:32)
[2020-12-25 11:46] LABS: Platelet Count 78 K/mcL (140-400)
[2020-12-25] MEDS ORDERED: Naloxone 0.4 MG/ML INJ IVP PRN (12:17)
[2020-12-25] MEDS ORDERED: Ipratropium 1 PUFF INHALER IH PRN (12:20)
[2020-12-25 12:42] LABS: C-Reactive Protein 35 mg/L (Less than 10)
[2020-12-25] MEDS: levoFLOXacin 750 MG TABLET PO SCH (16:35)
[2020-12-25] MEDS: Apixaban 5 MG TABLET PO SCH (20:21)
[2020-12-26] MEDS ORDERED: tiZANidine 4 MG TABLET PO ONE (03:31)
[2020-12-26] MEDS ORDERED: *HR* Enoxaparin 40 MG/0.4 ML SYRINGE SQ SCH (06:00)
[2020-12-26] MEDS ORDERED: *HR* HYDROcodone/Acet 5/325 mg TABLET PO ONE (06:04)
[2020-12-26 06:06] LABS: Basophils % 0.3 %; Hematocrit 29.7 % (35.3-44.9); Hemoglobin 9.9 g/dL (11.5-15.4); Immature Granulocytes % 1.7 % (0-4); Immature Platelets 7.6 % (1.1-6.1); Lymphocytes # 1.6 K/mcL (0.6-4.6); Lymphocytes % 55.3 %; Mean Corpuscular HGB Conc 33.3 g/dL (31.6-35.5); Mean Corpuscular Hemoglobin 30.7 pg (28.0-33.3); Mean Corpuscular Volume 92.2 fL (83.0-100.0); Mean Platelet Volume 11.1 fL (9.4-12.4); Monocytes # 0.3 K/mcL (0.0-1.3); Red Blood Count 3.22 M/mcL (3.82-4.97); Red Cell Distribution Width 16.5 % (11.5-14.5); Segmented Neutrophils % 32.7 %; White Blood Count 2.9 K/mcL (4.3-11.1)
[2020-12-26 06:11] LABS: Platelet Count 84 K/mcL (140-400)
[2020-12-26 06:20] LABS: BUN/Creatinine Ratio 18 (6-26); Blood Urea Nitrogen 16 mg/dL (8-23); Calcium 7.9 mg/dL (8.6-10.3); Carbon Dioxide 25 mEq/L (23-29); Chloride 99 mEq/L (98-107); Glucose 124 mg/dL (70-105); Magnesium 2.1 mg/dL (1.6-2.6); Osmolality,Calculated 281 (280-300); Phosphorous 3.3 mg/dL (2.7-4.5); Potassium 3.6 mEq/L (3.5-5.1); Sodium 134 mEq/L (136-145); eGFR For African Americans > 60 (> 60); eGFR For Non-African Americans > 60 (> 60)
[2020-12-26 07:12] LABS: Anisocytosis 1+ (Not Present); Platelet Estimate Slight Decrease (Normal); Target Cells 1+ (Not Present)
[2020-12-26] MEDS: Apixaban 5 MG TABLET PO SCH ×2 (07:33→20:16)
[2020-12-26] MEDS: levoFLOXacin 750 MG TABLET PO SCH (07:33)
[2020-12-26] MEDS: Aspirin 81 MG TAB.CHEW PO SCH (07:33)
[2020-12-26] MEDS: Calcium Gluconate 1gm/50mL 1 GM/50 ML BAG IVPB SCH ×2 (08:42→09:44)
[2020-12-26] MEDS ORDERED: Chloraseptic Spray 177 ML BOTTLE MM PRN (16:50)
[2020-12-26] MEDS: Saliva Stimulant 44.3ml BOTTLE PO SCH ×4 (17:30→23:22)
[2020-12-26] MEDS: Artificial Tears SOLN 15 ML BOTTLE BOTH EYES SCH ×2 (17:31→20:17)
[2020-12-26] MEDS: Saline Nasal Spray 44 ML BOTTLE NS SCH ×2 (17:31→20:17)
[2020-12-26] MEDS: Gabapentin 300 MG CAPSULE PO SCH (20:16)
[2020-12-26] MEDS: Chlorhexidine Rinse 15 ML MOUTHWASH MM SCH (20:16)
[2020-12-26] MEDS: Budesonide/Formoterol 160/4.5 1 PUFF INH IH SCH (20:16)
[2020-12-27 02:15] LABS: Immature Granulocytes % 1.6 % (0-4)
[2020-12-27 02:17] LABS: Basophils % 0.2 %; Hematocrit 31.5 % (35.3-44.9); Hemoglobin 10.2 g/dL (11.5-15.4); Immature Platelets 9.8 % (1.1-6.1); Lymphocytes # 1.6 K/mcL (0.6-4.6); Lymphocytes % 30.7 %; Mean Corpuscular HGB Conc 32.4 g/dL (31.6-35.5); Mean Corpuscular Hemoglobin 30.4 pg (28.0-33.3); Mean Corpuscular Volume 93.8 fL (83.0-100.0); Mean Platelet Volume 12.2 fL (9.4-12.4); Monocytes # 0.4 K/mcL (0.0-1.3); Monocytes % 8.1 %; Platelet Count 113 K/mcL (140-400); Red Blood Count 3.36 M/mcL (3.82-4.97); Red Cell Distribution Width 16.7 % (11.5-14.5); Segmented Neutrophils % 59.4 %; White Blood Count 5.1 K/mcL (4.3-11.1)
[2020-12-27 02:22] LABS: Iron 97 mcg/dL (50-170)
[2020-12-27 02:36] LABS: Alanine Aminotransferase 23 Units/L (7-52); Albumin 2.4 g/dL (3.5-5.7); Albumin/Globulin Ratio 0.8 (1.1-2.2); Alkaline Phosphatase 112 Units/L (34-104); Aspartate Amino Transferase 143 Units/L (13-39); BUN/Creatinine Ratio 23 (6-26); Bilirubin,Total 0.4 mg/dL (0.3-1.0); Blood Urea Nitrogen 19 mg/dL (8-23); C-Reactive Protein 19 mg/L (Less than 10); Carbon Dioxide 25 mEq/L (23-29); Chloride 99 mEq/L (98-107); Glucose 89 mg/dL (70-105); Lactate Dehydrogenase 250 Units/L (140-271); Osmolality,Calculated 284 (280-300); Phosphorous 2.9 mg/dL (2.7-4.5); Potassium 3.4 mEq/L (3.5-5.1); Sodium 136 mEq/L (136-145); Total Protein 5.4 g/dL (6.4-8.9); eGFR For African Americans > 60 (> 60); eGFR For Non-African Americans > 60 (> 60)
[2020-12-27 02:43] LABS: Ferritin 881 ng/mL (10-120)
[2020-12-27 02:47] LABS: Folate 4.3 ng/mL (3.0-16.0)
[2020-12-27 03:27] LABS: Anisocytosis 1+ (Not Present); Platelet Estimate Slight Decrease (Normal)
[2020-12-27] MEDS: Saliva Stimulant 44.3ml BOTTLE PO SCH ×10 (04:03→23:53)
[2020-12-27] MEDS: Saline Nasal Spray 44 ML BOTTLE NS SCH ×7 (04:03→23:53)
[2020-12-27 04:41] LABS: % Iron Saturation 69 % (15-50); Transferrin 101 mg/dL (203-362)
[2020-12-27] MEDS: Budesonide/Formoterol 160/4.5 1 PUFF INH IH SCH ×2 (08:19→21:29)
[2020-12-27] MEDS ORDERED: Cholecalciferol (D-3) 1,000 UNIT (25MCG) TABLET PO SCH (09:00)
[2020-12-27] MEDS ORDERED: lisinopriL 20 MG TABLET PO SCH (09:00)
[2020-12-27] MEDS ORDERED: Nicotine 21 MG PATCH.TD24 TD SCH (09:00)
[2020-12-27] MEDS ORDERED: Multivit/Ca/Min/Fe/FA 1 TAB TABLET PO SCH (09:00)
[2020-12-27] MEDS: Calcium Gluconate 1gm/50mL 1 GM/50 ML BAG IVPB SCH ×2 (09:30→10:35)
[2020-12-27] MEDS: Chlorhexidine Rinse 15 ML MOUTHWASH MM SCH ×2 (10:30→20:03)
[2020-12-27] MEDS: Ondansetron 4 MG/2 ML VIAL IVP PRN ×2 (10:33→20:34)
[2020-12-27] MEDS: levoFLOXacin 750 MG TABLET PO SCH (10:34)
[2020-12-27] MEDS: Gabapentin 300 MG CAPSULE PO SCH ×3 (10:34→19:59)
[2020-12-27] MEDS: Aspirin 81 MG TAB.CHEW PO SCH (10:34)
[2020-12-27] MEDS: Apixaban 5 MG TABLET PO SCH ×2 (10:34→19:59)
[2020-12-27] MEDS: Artificial Tears SOLN 15 ML BOTTLE BOTH EYES SCH ×4 (10:36→19:58)
[2020-12-27] MEDS ORDERED: Lactobacillus 1 EACH CAP.SPRINK PO SCH (21:00)
[2020-12-28] MEDS: Saliva Stimulant 44.3ml BOTTLE PO SCH ×3 (00:13→06:34)
[2020-12-28 01:26] LABS: Basophils % 0.2 %; Hematocrit 30.9 % (35.3-44.9); Hemoglobin 10.2 g/dL (11.5-15.4); Lymphocytes # 1.1 K/mcL (0.6-4.6); Lymphocytes % 21.2 %; Mean Corpuscular Hemoglobin 30.7 pg (28.0-33.3); Mean Corpuscular Volume 93.1 fL (83.0-100.0); Mean Platelet Volume 11.2 fL (9.4-12.4); Monocytes # 0.4 K/mcL (0.0-1.3); Monocytes % 6.8 %; Neutrophils # 3.7 K/mcL (1.6-8.9); Platelet Count 120 K/mcL (140-400); Red Blood Count 3.32 M/mcL (3.82-4.97); Red Cell Distribution Width 16.8 % (11.5-14.5); Segmented Neutrophils % 70.8 %; White Blood Count 5.2 K/mcL (4.3-11.1)
[2020-12-28 01:50] LABS: Alanine Aminotransferase 27 Units/L (7-52); Albumin 2.4 g/dL (3.5-5.7); Albumin/Globulin Ratio 0.8 (1.1-2.2); Alkaline Phosphatase 112 Units/L (34-104); Aspartate Amino Transferase 150 Units/L (13-39); BUN/Creatinine Ratio 20 (6-26); Bilirubin,Total 0.5 mg/dL (0.3-1.0); Blood Urea Nitrogen 17 mg/dL (8-23); C-Reactive Protein 22 mg/L (Less than 10); Calcium 8.4 mg/dL (8.6-10.3); Carbon Dioxide 27 mEq/L (23-29); Chloride 99 mEq/L (98-107); Globulin 2.9 g/dL (2.4-3.5); Glucose 107 mg/dL (70-105); Lactate Dehydrogenase 230 Units/L (140-271); Osmolality,Calculated 284 (280-300); Phosphorous 2.4 mg/dL (2.7-4.5); Potassium 3.2 mEq/L (3.5-5.1); Sodium 136 mEq/L (136-145); Total Protein 5.3 g/dL (6.4-8.9); eGFR For African Americans > 60 (> 60); eGFR For Non-African Americans > 60 (> 60)
[2020-12-28 02:01] LABS: Ferritin 890 ng/mL (10-120)
[2020-12-28] MEDS: Saline Nasal Spray 44 ML BOTTLE NS SCH (06:34)
[2020-12-28 07:53] VITALS: BP 152/80; PULSE 71; TEMP 98.1
[2020-12-28] MEDS: Budesonide/Formoterol 160/4.5 1 PUFF INH IH SCH (08:27)
[2020-12-28] MEDS ORDERED: Calcium Gluconate 1gm/50mL 1 GM/50 ML BAG IVPB SCH (08:30)
[2020-12-28 13:37] VITALS: O2SAT 97
== END 2020-12-28 14:30 | disposition home health service (06) ==
LOC: EMEROOARM 10:29 → 3BNU 10:29 → SUATTDRO 12:21 → 3BNU 12:52
PROVIDERS: ADMIT Internal Medicine; ATTEND Internal Medicine

== ENCOUNTER 2021-03-01 10:25 | Inpatient (IN) ==
[2021-03-01] MEDS ORDERED: CeFAZolin Syr 2,000MG/20 ML 2,000 MG/20 ML SYRINGE IVPB ONE (10:50)
[2021-03-01] MEDS ORDERED: Ringers Solution, Lactated 1,000 ML IVC SCH (11:00)
[2021-03-01] MEDS ORDERED: Ondansetron 4 MG/2 ML VIAL IVP PRN ×2 (11:08→19:43)
[2021-03-01] MEDS ORDERED: Vancomycin 1,000 MG, Sodium Chloride IRRigation 1,000 ML IR ONE (12:05)
[2021-03-01] MEDS ORDERED: Bupivacaine-MPF 0.25% 10 ML VIAL ONE (12:34)
[2021-03-01] MEDS ORDERED: Heparin 1,000 UNITS/500 mL 1,000 ML ONE (12:34)
[2021-03-01] MEDS ORDERED: Heparin 1,000 UNITS/500 mL 0 ML ONE ×2 (12:35→13:11)
[2021-03-01] MEDS ORDERED: Vancomycin 1,000 MG VIAL ONE (12:35)
[2021-03-01] MEDS ORDERED: *HR* Propofol 200 MG/20 ML VIAL IVP ONE (12:51)
[2021-03-01] MEDS ORDERED: *HR* FentaNYL (PF) 100 MCG/2 ML VIAL ONE ×3 (12:51→17:33)
[2021-03-01] MEDS ORDERED: Ondansetron 4 MG/2 ML VIAL ONE (12:51)
[2021-03-01] MEDS ORDERED: Lidocaine -MPF 2% 5 ML VIAL ONE (12:51)
[2021-03-01] MEDS ORDERED: *HR* Succinylcholine 200 MG/10 ML VIAL IVP ONE (12:51)
[2021-03-01] MEDS ORDERED: Lidocaine HCL 4 ML Topical Solution (Laryng-O-Jet Kit Sterile Pak) TP ONE (12:51)
[2021-03-01] MEDS ORDERED: *HR* Rocuronium Bromide 50 MG/5 ML VIAL ONE ×2 (12:51→15:25)
[2021-03-01] MEDS ORDERED: *HR* Midazolam HCl 2 MG/2 ML VIAL ONE (13:05)
[2021-03-01] MEDS ORDERED: *HR* Vasopressin 20 UNIT/ML VIAL ONE (13:07)
[2021-03-01] MEDS ORDERED: Albumin Human 5% 12.5 GM/250 ML IV.SOLN ONE (13:07)
[2021-03-01] MEDS ORDERED: *HR* Metoprolol 5 MG/5 ML VIAL IVP ONE (17:07)
[2021-03-01] MEDS ORDERED: *HR* Magnesium Sulfate 1 GM/2 ML VIAL ONE (17:18)
[2021-03-01 17:27] LABS: ABG Base Excess -2 mEq/L (-2 to 3); ABG HCO3 25 mEq/L (21-27); ABG Oxygen Saturation 99 % (95-98); ABG PCO2 52 mmHg (35-45); ABG PO2 141 mmHg (85-104); ABG TCO2 27 mEq/L (20-26)
[2021-03-01] MEDS ORDERED: Sugammadex Sodium 200 MG/2 ML VIAL IV ONE (17:32)
[2021-03-01] MEDS ORDERED: *HR* Labetalol 20 MG/4 ML SYRINGE IVP ONE (17:58)
[2021-03-01] MEDS: *HR* HYDROmorphone PF 0.5 MG/0.5 ML SYRINGE IVP PRN ×2 (18:10→18:15)
[2021-03-01] MEDS ORDERED: *HR* HYDROcodone/Acet 5/325 mg TABLET PO PRN (19:43)
[2021-03-01] MEDS ORDERED: Acetaminophen 325 MG TABLET PO PRN ×2 (19:43)
[2021-03-01] MEDS ORDERED: *HR* OxyCODONE Immed Rel 5 MG TABLET PO PRN (19:43)
[2021-03-01] MEDS ORDERED: *HR* Labetalol 20 MG/4 ML SYRINGE IVP PRN (19:43)
[2021-03-01] MEDS ORDERED: Naloxone 0.4 MG/ML INJ IVP PRN (19:43)
[2021-03-01] MEDS ORDERED: 0.9 % Sodium Chloride 1,000 ML IVC SCH (19:43)
[2021-03-01] MEDS: *HR* HYDROcodone/Acet 5/325 mg TABLET PO PRN (21:24)
[2021-03-01] MEDS: Gabapentin 300 MG CAPSULE PO SCH (21:24)
[2021-03-01] MEDS: *HR* Metoprolol 5 MG/5 ML VIAL IVP SCH ×2 (21:25→23:10)
[2021-03-01] MEDS: [UNRECOGNIZED DRUG - OTHER] IH SCH (21:42)
[2021-03-01] MEDS: BEVESPI AEROSPHERE IH SCH (21:42)
[2021-03-01] MEDS: CeFAZolin 2 GM/120 ML BAG IVPB SCH (23:15)
[2021-03-01] MEDS: *HR* OxyCODONE Immed Rel 5 MG TABLET PO PRN (23:21)
[2021-03-02 04:28] LABS: Basophils % 0.2 %; Hematocrit 26.6 % (35.3-44.9); Hemoglobin 8.5 g/dL (11.5-15.4); Immature Granulocytes % 0.3 % (0-4); Lymphocytes # 1.9 K/mcL (0.6-4.6); Lymphocytes % 21.9 %; Mean Corpuscular Hemoglobin 31.7 pg (28.0-33.3); Mean Corpuscular Volume 99.3 fL (83.0-100.0); Mean Platelet Volume 10.8 fL (9.4-12.4); Monocytes # 0.7 K/mcL (0.0-1.3); Monocytes % 7.6 %; Neutrophils # 6.1 K/mcL (1.6-8.9); Platelet Count 173 K/mcL (140-400); Red Blood Count 2.68 M/mcL (3.82-4.97); Red Cell Distribution Width 17.2 % (11.5-14.5); White Blood Count 8.7 K/mcL (4.3-11.1)
[2021-03-02 04:34] LABS: BUN/Creatinine Ratio 7 (6-26); Blood Urea Nitrogen 7 mg/dL (8-23); Calcium 7.8 mg/dL (8.6-10.3); Carbon Dioxide 24 mEq/L (23-29); Chloride 108 mEq/L (98-107); Glucose 107 mg/dL (70-105); Osmolality,Calculated 282 (280-300); Potassium 4.2 mEq/L (3.5-5.1); Sodium 137 mEq/L (136-145); eGFR For African Americans > 60 (> 60); eGFR For Non-African Americans 56 (> 60)
[2021-03-02] MEDS: *HR* Metoprolol 5 MG/5 ML VIAL IVP SCH ×2 (04:36→12:05)
[2021-03-02] MEDS: *HR* HYDROcodone/Acet 5/325 mg TABLET PO PRN ×2 (04:48→12:55)
[2021-03-02] MEDS ORDERED: *HR* Heparin 5,000 UNIT/ML VIAL SQ SCH ×2 (06:00)
[2021-03-02] MEDS: CeFAZolin 2 GM/120 ML BAG IVPB SCH (08:03)
[2021-03-02] MEDS: Gabapentin 300 MG CAPSULE PO SCH ×2 (08:04→14:59)
[2021-03-02] MEDS: *HR* OxyCODONE Immed Rel 5 MG TABLET PO PRN (08:05)
[2021-03-02] MEDS ORDERED: Aspirin 81 MG TAB.CHEW PO SCH (09:00)
[2021-03-02] MEDS ORDERED: Tiotropium 10 INH DOSE IH SCH (10:00)
[2021-03-02] MEDS: [UNRECOGNIZED DRUG - OTHER] IH SCH (10:15)
[2021-03-02] MEDS: BEVESPI AEROSPHERE IH SCH (10:15)
[2021-03-02 11:35] VITALS: TEMP 97.9
[2021-03-02 19:00] VITALS: BP 125/67; PULSE 74; O2SAT 95
== END 2021-03-02 17:43 | disposition home or self-care (01) | DRG 181 ==
LOC: SAMDAY 10:25 → 2NNU 19:36
PROVIDERS: ADMIT Surgery; ATTEND Surgery

== ENCOUNTER 2021-05-02 13:04 | Observation (INO) ==
[2021-05-02 14:20] LABS: Basophils # 0.1 K/mcL (0.0-0.2); Basophils % 0.8 %; Eosinophils % 0.4 %; Hematocrit 30.1 % (35.3-44.9); Hemoglobin 9.5 g/dL (11.5-15.4); Immature Granulocytes % 0.5 % (0-4); Lymphocytes # 3.4 K/mcL (0.6-4.6); Lymphocytes % 46.2 %; Mean Corpuscular HGB Conc 31.6 g/dL (31.6-35.5); Mean Corpuscular Hemoglobin 32.8 pg (28.0-33.3); Mean Corpuscular Volume 103.8 fL (83.0-100.0); Mean Platelet Volume 9.5 fL (9.4-12.4); Monocytes # 0.7 K/mcL (0.0-1.3); Monocytes % 9.5 %; Neutrophils # 3.1 K/mcL (1.6-8.9); Nucleated Red Blood Cells 0.3 /100 WBC (0); Platelet Count 213 K/mcL (140-400); Red Cell Distribution Width 17.6 % (11.5-14.5); Segmented Neutrophils % 42.6 %; White Blood Count 7.3 K/mcL (4.3-11.1)
[2021-05-02 14:45] LABS: Albumin 2.2 g/dL (3.5-5.7); Albumin/Globulin Ratio 0.7 (1.1-2.2); Bilirubin,Direct 0.1 mg/dL (0.0-0.2); Bilirubin,Indirect 0.6 mg/dL (0.0-1.0); Bilirubin,Total 0.7 mg/dL (0.3-1.0); Globulin 3.3 g/dL (2.4-3.5); Potassium 3.9 mEq/L (3.5-5.1); Total Protein 5.5 g/dL (6.4-8.9)
[2021-05-02] MEDS ORDERED: Furosemide 40 MG/4 ML VIAL IVP ONE (16:27)
[2021-05-02] MEDS ORDERED: Melatonin 3 MG TABLET PO PRN (17:09)
[2021-05-02] MEDS ORDERED: Ondansetron 4 MG/2 ML VIAL IVP PRN (17:09)
[2021-05-02] MEDS ORDERED: Naloxone 0.4 MG/ML INJ IVP PRN (17:09)
[2021-05-02] MEDS ORDERED: Perflutren Lipid Microsphere 1.3 ML in 0.9 % Sodium Chloride 8.7 ML IVP PRN (17:46)
[2021-05-03 00:51] LABS: Calcium 7.7 mg/dL (8.6-10.3); Potassium 3.5 mEq/L (3.5-5.1)
[2021-05-03 00:52] LABS: Troponin I 0.03 ng/mL (< 0.04)
[2021-05-03 01:06] LABS: Basophils # 0.1 K/mcL (0.0-0.2); Basophils % 0.7 %; Eosinophils # 0.1 K/mcL (0.0-0.6); Eosinophils % 1.6 %; Hematocrit 29.2 % (35.3-44.9); Hemoglobin 9.4 g/dL (11.5-15.4); Immature Granulocytes % 0.3 % (0-4); Lymphocytes # 3.7 K/mcL (0.6-4.6); Lymphocytes % 48.8 %; Mean Corpuscular HGB Conc 32.2 g/dL (31.6-35.5); Mean Corpuscular Hemoglobin 33.8 pg (28.0-33.3); Mean Platelet Volume 9.6 fL (9.4-12.4); Monocytes # 0.8 K/mcL (0.0-1.3); Monocytes % 11.1 %; Neutrophils # 2.8 K/mcL (1.6-8.9); Platelet Count 203 K/mcL (140-400); Red Blood Count 2.78 M/mcL (3.82-4.97); Red Cell Distribution Width 17.8 % (11.5-14.5); Segmented Neutrophils % 37.5 %; White Blood Count 7.5 K/mcL (4.3-11.1)
[2021-05-03] MEDS ORDERED: *HR* OxyCODONE/APAP 5/325 TABLET PO PRN (08:04)
[2021-05-03] MEDS ORDERED: Artificial Tears SOLN 15 ML BOTTLE BOTH EYES PRN (08:04)
[2021-05-03] MEDS ORDERED: Ondansetron ODT 4 MG TAB.RAPDIS PO PRN (08:14)
[2021-05-03] MEDS ORDERED: Aspirin 81 MG TAB.CHEW PO SCH (09:00)
[2021-05-03] MEDS ORDERED: Fluticasone Propionate Nasal 50 MCG/SPRAY BOTTLE NS SCH (09:00)
[2021-05-03] MEDS ORDERED: Apixaban 5 MG TABLET PO SCH (09:00)
[2021-05-03] MEDS ORDERED: Gabapentin 300 MG CAPSULE PO SCH (09:00)
[2021-05-03] MEDS ORDERED: Tiotropium 10 INH DOSE IH SCH (10:00)
[2021-05-03] MEDS ORDERED: Budesonide/Formoterol 80/4.5 1 PUFF INH IH SCH (10:00)
[2021-05-03 10:52] VITALS: BP 129/78; PULSE 71; TEMP 98.6; O2SAT 95
[2021-05-03] MEDS ORDERED: Furosemide 40 MG/4 ML VIAL IVP ONE (13:26)
== END 2021-05-03 17:00 | disposition home or self-care (01) ==
LOC: EMEROOARM 13:04 → 3BNU 13:04 → SUATTDRO 17:07 → 3BNU 18:20
PROVIDERS: ADMIT Family Medicine; ATTEND Internal Medicine

== ENCOUNTER 2021-06-08 13:27 | Observation (INO) ==
[2021-06-08] MEDS ORDERED: Naloxone 0.4 MG/ML INJ IVP PRN (17:36)
[2021-06-08] MEDS ORDERED: Acetaminophen 325 MG TABLET PO PRN (17:36)
[2021-06-08] MEDS ORDERED: Ondansetron ODT 4 MG TAB.RAPDIS PO PRN (17:39)
[2021-06-08] MEDS: Budesonide/Formoterol 80/4.5 1 PUFF INH IH SCH (20:48)
[2021-06-09] MEDS ORDERED: *HR* OxyCODONE Immed Rel 5 MG TABLET PO ONE (00:10)
[2021-06-09 01:43] LABS: Bacteria,Urine Few per hpf (None-Few); Bilirubin,Urine Negative (Negative); Blood,Urine Trace (Negative); Clarity,Urine Clear (Clear); Color,Urine Colorless (Yellow); Glucose,Urine (UA) Normal (Normal); Ketones,Urine Trace mg/dL (Negative); Leukocyte Esterase,Urine Negative (Negative); Nitrite,Urine Negative (Negative); Protein,Urine 30 mg/dL (Neg-Trace); Specific Gravity,Urine 1.009 (1.010-1.025); Urobilinogen,Urine Normal (Normal); WBC,Urine 0-3 per hpf (0-3)
[2021-06-09] MEDS ORDERED: *HR* HYDROcodone/Acet 7.5/325 mg TABLET PO ONE (03:41)
[2021-06-09 03:54] LABS: Hematocrit 25.4 % (35.3-44.9); Red Cell Distribution Width 17.5 % (11.5-14.5)
[2021-06-09 03:56] LABS: Hemoglobin 8.3 g/dL (11.5-15.4); Immature Granulocytes % 0.3 % (0-4); Immature Platelets 5.6 % (1.1-6.1); Lymphocytes # 2.5 K/mcL (0.6-4.6); Lymphocytes % 31.5 %; Mean Corpuscular HGB Conc 32.7 g/dL (31.6-35.5); Mean Corpuscular Hemoglobin 34.4 pg (28.0-33.3); Mean Corpuscular Volume 105.4 fL (83.0-100.0); Mean Platelet Volume 10.8 fL (9.4-12.4); Monocytes # 0.7 K/mcL (0.0-1.3); Monocytes % 9.2 %; Neutrophils # 4.7 K/mcL (1.6-8.9); Red Blood Count 2.41 M/mcL (3.82-4.97)
[2021-06-09 03:57] LABS: Platelet Count 95 K/mcL (140-400)
[2021-06-09 04:06] LABS: INR 1.3
[2021-06-09 04:09] LABS: Activated Partial Thrombo Time 30.6 Seconds (26.0-36.0)
[2021-06-09 04:15] LABS: BUN/Creatinine Ratio 14 (6-26); Blood Urea Nitrogen 8 mg/dL (8-23); Calcium 7.6 mg/dL (8.6-10.3); Carbon Dioxide 40 mEq/L (23-29); Chloride 88 mEq/L (98-107); Glucose 75 mg/dL (70-105); Magnesium 1.6 mg/dL (1.6-2.6); Osmolality,Calculated 273 (280-300); Potassium 3.1 mEq/L (3.5-5.1); Sodium 133 mEq/L (136-145); eGFR For African Americans > 60 (> 60); eGFR For Non-African Americans > 60 (> 60)
[2021-06-09] MEDS ORDERED: Potassium Chloride Elixir 20 MEQ/15 ML UDC PO ONE ×2 (04:41→05:30)
[2021-06-09] MEDS ORDERED: Calcium Gluconate 1gm/50mL 1 GM/50 ML BAG IVPB ONE (04:41)
[2021-06-09 05:22] LABS: ABG Base Excess 15 mEq/L (-2 to 3); ABG HCO3 40 mEq/L (21-27); ABG Oxygen Saturation 96 % (95-98); ABG PCO2 51 mmHg (35-45); ABG PO2 77 mmHg (85-104); ABG TCO2 41 mEq/L (20-26); Blood Gas Modality PAV
[2021-06-09] MEDS: Budesonide/Formoterol 80/4.5 1 PUFF INH IH SCH ×2 (08:00→20:33)
[2021-06-09] MEDS: Aspirin 81 MG TAB.CHEW PO SCH (08:26)
[2021-06-09] MEDS: Apixaban 5 MG TABLET PO SCH (08:26)
[2021-06-09] MEDS: Fluticasone Propionate Nasal 50 MCG/SPRAY BOTTLE NS SCH (08:31)
[2021-06-09] MEDS: Furosemide 20 MG/2 ML VIAL IVP SCH (09:06)
[2021-06-09] MEDS: dexAMETHasone 4 MG TABLET PO SCH (09:06)
[2021-06-10 04:00] VITALS: BP 155/81; PULSE 86; TEMP 98.2
[2021-06-10] MEDS: Apixaban 5 MG TABLET PO SCH (07:47)
[2021-06-10] MEDS: Budesonide/Formoterol 80/4.5 1 PUFF INH IH SCH (07:48)
[2021-06-10] MEDS: dexAMETHasone 4 MG TABLET PO SCH (07:48)
[2021-06-10] MEDS: Furosemide 20 MG/2 ML VIAL IVP SCH (07:48)
[2021-06-10] MEDS: Aspirin 81 MG TAB.CHEW PO SCH (07:48)
[2021-06-10 07:51] VITALS: O2SAT 93
[2021-06-10] MEDS: Fluticasone Propionate Nasal 50 MCG/SPRAY BOTTLE NS SCH (08:42)
== END 2021-06-10 13:52 | disposition left against medical advice (07) ==
LOC: 3ANU → SUATTDRO 16:37
PROVIDERS: ADMIT Internal Medicine; ATTEND Student in an Organized Health Care Education/Training Program

== ENCOUNTER 2021-07-04 23:46 | Inpatient (IN) ==
[2021-07-04] MEDS ORDERED: 0.9 % Sodium Chloride 1,000 ML IVC ONE (23:59)
[2021-07-05] MEDS ORDERED: Isovue-370 500 ML BOTTLE IVP ONE
[2021-07-05] MEDS ORDERED: *HR* FentaNYL (PF) 100 MCG/2 ML VIAL ONE ×2 (00:29→11:57)
[2021-07-05] MEDS ORDERED: 0.9 % Sodium Chloride 1,000 ML IVC ONE ×2 (00:30→04:14)
[2021-07-05] MEDS: *HR* FentaNYL (PF) 100 MCG/2 ML VIAL IVP STA ×2 (00:33→00:36)
[2021-07-05 01:03] LABS: Basophils % 0.2 %; Eosinophils # 0.1 K/mcL (0.0-0.6); Eosinophils % 0.4 %; Hematocrit 32.5 % (35.3-44.9); Hemoglobin 10.3 g/dL (11.5-15.4); Immature Granulocytes % 0.6 % (0-4); Lymphocytes # 2.6 K/mcL (0.6-4.6); Lymphocytes % 11.4 %; Mean Corpuscular HGB Conc 31.7 g/dL (31.6-35.5); Mean Corpuscular Hemoglobin 32.7 pg (28.0-33.3); Mean Corpuscular Volume 103.2 fL (83.0-100.0); Mean Platelet Volume 10.8 fL (9.4-12.4); Monocytes # 0.9 K/mcL (0.0-1.3); Monocytes % 4.1 %; Neutrophils # 18.9 K/mcL (1.6-8.9); Platelet Count 150 K/mcL (140-400); Red Blood Count 3.15 M/mcL (3.82-4.97); Red Cell Distribution Width 15.6 % (11.5-14.5); Segmented Neutrophils % 83.3 %; White Blood Count 22.7 K/mcL (4.3-11.1)
[2021-07-05 01:16] LABS: INR 1.1; Prothrombin Time 12.6 Seconds (9.4-12.1)
[2021-07-05 01:18] LABS: Troponin I 0.05 ng/mL (< 0.04)
[2021-07-05 01:19] LABS: Activated Partial Thrombo Time 30.1 Seconds (26.0-36.0); Bilirubin,Direct 0.4 mg/dL (0.0-0.2); Bilirubin,Indirect 0.7 mg/dL (0.0-1.0); Bilirubin,Total 1.1 mg/dL (0.3-1.0); Calcium 8.1 mg/dL (8.6-10.3); Magnesium 1.8 mg/dL (1.6-2.6); Phosphorous 5.3 mg/dL (2.7-4.5); Potassium 4.1 mEq/L (3.5-5.1)
[2021-07-05 01:20] LABS: Albumin 1.9 g/dL (3.5-5.7); Albumin/Globulin Ratio 0.5 (1.1-2.2); Globulin 3.6 g/dL (2.4-3.5); Total Protein 5.5 g/dL (6.4-8.9)
[2021-07-05] MEDS ORDERED: *HR* FentaNYL (PF) 100 MCG/2 ML VIAL IVP ONE ×2 (02:34→10:15)
[2021-07-05 04:07] LABS: Bacteria,Urine Many per hpf (None-Few); Bilirubin,Urine Small (Negative); Blood,Urine Small (Negative); Clarity,Urine Ex.Turbid (Clear); Color,Urine Yellow (Yellow); Glucose,Urine (UA) Normal (Normal); Hyaline Casts,Urine Many per lpf (None Seen); Ketones,Urine Negative (Negative); Leukocyte Esterase,Urine Large (Negative); Mucus,Urine Few per lpf (None-Few); Nitrite,Urine Negative (Negative); PH,Urine 6.5 pH Units (5.0-8.0); Protein,Urine 50 mg/dL (Neg-Trace); RBC,Urine 0-3 per hpf (0-3); Specific Gravity,Urine 1.027 (1.010-1.025); Squamous Epithelial Cell,Urine Few per hpf (None-Few); WBC,Urine TNTC per hpf (0-3)
[2021-07-05] MEDS ORDERED: cefTRIAXone 1,000 MG in 0.9 % Sodium Chloride Mini Bag 100 ML IVPB ONE (04:11)
[2021-07-05] MEDS ORDERED: Vancomycin 1,250 MG/262.5 ML IV.SOLN IVPB ONE (04:18)
[2021-07-05] MEDS ORDERED: 0.9 % Sodium Chloride 500 ML IVC ONE (04:18)
[2021-07-05] MEDS ORDERED: Piperacillin/Tazobactam 3.375 GM in 0.9 % Sodium Chloride Mini Bag 100 ML IVPB ONE (04:19)
[2021-07-05] MEDS ORDERED: Albumin 25% 25gram/100mL 25 GM/100 ML IV.SOLN IVPB ONE (04:35)
[2021-07-05] MEDS ORDERED: Naloxone 0.4 MG/ML INJ IVP PRN ×2 (04:35→14:55)
[2021-07-05] MEDS ORDERED: Melatonin 3 MG TABLET PO PRN (04:35)
[2021-07-05] MEDS ORDERED: TAZOBACTAM IVP ONE (06:00)
[2021-07-05] MEDS ORDERED: PIPERACILLIN IVP ONE (06:00)
[2021-07-05] MEDS ORDERED: SODIUM CHLORIDE 0.9% IVP ONE (06:00)
[2021-07-05] MEDS ORDERED: *HR* Heparin 5,000 UNIT/ML VIAL IVP PRN ×2 (06:02)
[2021-07-05] MEDS ORDERED: *HR* Heparin 5,000 UNIT/ML VIAL IVP ONE (06:02)
[2021-07-05] MEDS ORDERED: Heparin 25,000UNIT/250ML 1/2NS 25,000 UNIT/250 ML IV.SOLN IVC SCH ×2 (06:15→11:00)
[2021-07-05] MEDS ORDERED: 0.9 % Sodium Chloride 1,000 ML IVC SCH (06:15)
[2021-07-05] MEDS: Norepinephrine 4 MG/254 ML IV.SOLN IVC SCH ×2 (07:59→14:53)
[2021-07-05 08:27] LABS: Heparin anti-factor XA UFH 0.64 IU/mL (0.30-0.70)
[2021-07-05] MEDS ORDERED: *HR* Dextrose 50 % in Water (Syg) 50 ML SYRINGE ONE (09:15)
[2021-07-05] MEDS ORDERED: *HR* Dextrose 50 % in Water (Syg) 50 ML SYRINGE IVP ONE (09:16)
[2021-07-05] MEDS ORDERED: Lidocaine -MPF 1% 5 ML AMPUL INFILT ONE (10:24)
[2021-07-05 11:24] LABS: Activated Partial Thrombo Time 31.5 Seconds (26.0-36.0)
[2021-07-05] MEDS ORDERED: Heparin 1,000 UNITS/500 mL 0 ML ONE (11:41)
[2021-07-05] MEDS ORDERED: *HR* Midazolam HCl 2 MG/2 ML VIAL ONE (11:57)
[2021-07-05] MEDS ORDERED: Lidocaine -MPF 2% 5 ML VIAL ONE (11:57)
[2021-07-05] MEDS ORDERED: Vancomycin 1,000 MG, Sodium Chloride IRRigation 1,000 ML IR ONE (12:00)
[2021-07-05] MEDS ORDERED: Vancomycin (wt based) 1,000 MG VIAL IVPB SCH (12:00)
[2021-07-05] MEDS ORDERED: Ropivacaine/PF 0.5% 30 ML VIAL ONE ×2 (12:07→12:13)
[2021-07-05] MEDS ORDERED: Bupivacaine-MPF 0.25% 10 ML VIAL ONE (12:36)
[2021-07-05] MEDS ORDERED: CeFAZolin Syr 2,000MG/20 ML 2,000 MG/20 ML SYRINGE IVPB ONE (13:00)
[2021-07-05] MEDS ORDERED: *HR* FentaNYL (PF) 100 MCG/2 ML VIAL IVP PRN ×3 (14:32→23:24)
[2021-07-05] MEDS ORDERED: *HR* OxyCODONE/APAP 7.5/325 TABLET PO PRN (14:55)
[2021-07-05] MEDS ORDERED: *HR* OxyCODONE/APAP 10/325 TABLET PO PRN (14:55)
[2021-07-05] MEDS ORDERED: Norepinephrine 4 MG/254 ML IV.SOLN IVC SCH (14:55)
[2021-07-05] MEDS ORDERED: Cefepime HCl 2,000 MG in 0.9 % Sodium Chloride 10 ML IVP SCH (15:00)
[2021-07-05] MEDS ORDERED: *HR* Heparin 5,000 UNIT/ML VIAL SQ SCH ×2 (18:00)
[2021-07-05] MEDS ORDERED: Cefepime HCl 1,000 MG in 0.9 % Sodium Chloride 10 ML IVP SCH (18:00)
[2021-07-05] MEDS: Cefepime HCl 1,000 MG in 0.9 % Sodium Chloride 10 ML IVP SCH (18:12)
[2021-07-05] MEDS: *HR* Heparin 5,000 UNIT/ML VIAL SQ SCH (18:13)
[2021-07-05] MEDS: *HR* OxyCODONE/APAP 5/325 TABLET PO PRN (20:14)
[2021-07-06 04:30] LABS: Basophils % 0.1 %; Hematocrit 19.4 % (35.3-44.9); Immature Granulocytes % 0.5 % (0-4); Immature Platelets 3.4 % (1.1-6.1); Lymphocytes # 1.2 K/mcL (0.6-4.6); Lymphocytes % 7.7 %; Mean Corpuscular HGB Conc 30.4 g/dL (31.6-35.5); Mean Corpuscular Hemoglobin 32.8 pg (28.0-33.3); Mean Corpuscular Volume 107.8 fL (83.0-100.0); Mean Platelet Volume 10.5 fL (9.4-12.4); Monocytes # 0.3 K/mcL (0.0-1.3); Monocytes % 2.1 %; Platelet Count 104 K/mcL (140-400); Red Cell Distribution Width 15.8 % (11.5-14.5); Segmented Neutrophils % 89.6 %
[2021-07-06 04:35] LABS: Hemoglobin 5.9 g/dL (11.5-15.4); Neutrophils # 13.4 K/mcL (1.6-8.9)
[2021-07-06 04:46] LABS: Calcium 6.6 mg/dL (8.6-10.3); Potassium 3.3 mEq/L (3.5-5.1)
[2021-07-06 05:20] LABS: Hemoglobin 6.6 g/dL (11.5-15.4); Mean Corpuscular HGB Conc 31.4 g/dL (31.6-35.5); Mean Corpuscular Hemoglobin 33.3 pg (28.0-33.3); Mean Corpuscular Volume 106.1 fL (83.0-100.0); Mean Platelet Volume 10.4 fL (9.4-12.4); Platelet Count 103 K/mcL (140-400); Red Blood Count 1.98 M/mcL (3.82-4.97); Red Cell Distribution Width 15.8 % (11.5-14.5); White Blood Count 16.5 K/mcL (4.3-11.1)
[2021-07-06] MEDS: *HR* Heparin 5,000 UNIT/ML VIAL SQ SCH ×2 (05:37→17:56)
[2021-07-06] MEDS: Cefepime HCl 1,000 MG in 0.9 % Sodium Chloride 10 ML IVP SCH ×2 (05:38→17:55)
[2021-07-06] MEDS ORDERED: Calcium Gluconate 1gm/50mL 1 GM/50 ML BAG IVPB PRN (05:58)
[2021-07-06] MEDS ORDERED: 0.9 % Sodium Chloride 250 ML IVC SCH (06:00)
[2021-07-06] MEDS ORDERED: Potassium Chloride 40 MEQ/200 ML BAG IVPB PRN (06:07)
[2021-07-06 13:29] LABS: VBG Ionized Calcium 1.15 mmol/L (1.15-1.35)
[2021-07-06 13:43] LABS: Hemoglobin 8.1 g/dL (11.5-15.4); Mean Corpuscular HGB Conc 31.2 g/dL (31.6-35.5); Mean Corpuscular Hemoglobin 31.6 pg (28.0-33.3); Mean Corpuscular Volume 101.6 fL (83.0-100.0); Mean Platelet Volume 10.3 fL (9.4-12.4); Platelet Count 105 K/mcL (140-400); Red Blood Count 2.56 M/mcL (3.82-4.97); Red Cell Distribution Width 18.3 % (11.5-14.5); White Blood Count 18.2 K/mcL (4.3-11.1)
[2021-07-06] MEDS: *HR* OxyCODONE/APAP 5/325 TABLET PO PRN (17:54)
[2021-07-07 02:22] LABS: Albumin 1.7 g/dL (3.5-5.7); Calcium 7.5 mg/dL (8.6-10.3); Potassium 3.9 mEq/L (3.5-5.1)
[2021-07-07 02:23] LABS: Hemoglobin 7.9 g/dL (11.5-15.4); Immature Granulocytes % 0.5 % (0-4); Red Cell Distribution Width 18.6 % (11.5-14.5)
[2021-07-07 02:24] LABS: Basophils % 0.1 %; Hematocrit 24.5 % (35.3-44.9); Immature Platelets 4.2 % (1.1-6.1); Lymphocytes % 19.8 %; Mean Corpuscular HGB Conc 32.2 g/dL (31.6-35.5); Mean Corpuscular Hemoglobin 32.5 pg (28.0-33.3); Mean Corpuscular Volume 100.8 fL (83.0-100.0); Mean Platelet Volume 10.5 fL (9.4-12.4); Monocytes # 0.6 K/mcL (0.0-1.3); Monocytes % 3.9 %; Neutrophils # 11.4 K/mcL (1.6-8.9); Platelet Count 102 K/mcL (140-400); Red Blood Count 2.43 M/mcL (3.82-4.97); Segmented Neutrophils % 75.7 %
[2021-07-07 02:32] LABS: ABG Base Excess -2 mEq/L (-2 to 3); ABG HCO3 22 mEq/L (21-27); ABG Oxygen Saturation 96 % (95-98); ABG PCO2 31 mmHg (35-45); ABG PH 7.46 pH Units (7.32-7.45); ABG PO2 76 mmHg (85-104); ABG TCO2 23 mEq/L (20-26)
[2021-07-07] MEDS ORDERED: Albumin 25% 25gram/100mL 25 GM/100 ML IV.SOLN IVPB ONE (02:55)
[2021-07-07] MEDS ORDERED: Vancomycin 500 MG in 0.9 % Sodium Chloride Mini Bag 100 ML IVPB ONE (06:00)
[2021-07-07] MEDS ORDERED: Cefepime HCl 1,000 MG in 0.9 % Sodium Chloride 10 ML IVP SCH (06:00)
[2021-07-07] MEDS: *HR* Amiodarone 200 MG TABLET PO SCH (08:27)
[2021-07-07] MEDS: Aspirin 81 MG TAB.CHEW PO SCH (08:27)
[2021-07-07] MEDS ORDERED: Apixaban 5 MG TABLET PO SCH (09:00)
[2021-07-07] MEDS ORDERED: 0.9 % Sodium Chloride 1,000 ML IVC SCH (11:15)
[2021-07-07] MEDS: Ertapenem 1,000 MG in 0.9 % Sodium Chloride Mini Bag 100 ML IVPB SCH (16:51)
[2021-07-07] MEDS: *HR* OxyCODONE/APAP 5/325 TABLET PO PRN (17:39)
[2021-07-07] MEDS: Ondansetron 4 MG/2 ML VIAL IVP PRN (19:14)
[2021-07-08] MEDS: *HR* OxyCODONE/APAP 5/325 TABLET PO PRN ×3 (00:36→22:19)
[2021-07-08 04:45] LABS: Basophils % 0.2 %; Eosinophils % 0.6 %; Hematocrit 22.8 % (35.3-44.9)
[2021-07-08 04:47] LABS: Eosinophils # 0.1 K/mcL (0.0-0.6); Hemoglobin 7.2 g/dL (11.5-15.4); Immature Granulocytes % 0.6 % (0-4); Immature Platelets 3.5 % (1.1-6.1); Lymphocytes # 2.2 K/mcL (0.6-4.6); Mean Corpuscular HGB Conc 31.6 g/dL (31.6-35.5); Mean Corpuscular Hemoglobin 32.4 pg (28.0-33.3); Mean Corpuscular Volume 102.7 fL (83.0-100.0); Mean Platelet Volume 10.5 fL (9.4-12.4); Monocytes # 0.4 K/mcL (0.0-1.3); Monocytes % 4.3 %; Neutrophils # 5.5 K/mcL (1.6-8.9); Red Blood Count 2.22 M/mcL (3.82-4.97); Red Cell Distribution Width 18.3 % (11.5-14.5); Segmented Neutrophils % 67.3 %; White Blood Count 8.2 K/mcL (4.3-11.1)
[2021-07-08 05:10] LABS: Platelet Count 75 K/mcL (140-400); Platelet Estimate Decreased (Normal)
[2021-07-08 05:11] LABS: Alanine Aminotransferase 5 Units/L (7-52); Albumin 1.8 g/dL (3.5-5.7); Albumin/Globulin Ratio 0.8 (1.1-2.2); Alkaline Phosphatase 82 Units/L (34-104); Anisocytosis 1+ (Not Present); Aspartate Amino Transferase 17 Units/L (13-39); BUN/Creatinine Ratio 24 (6-26); Bilirubin,Total 0.7 mg/dL (0.3-1.0); Blood Urea Nitrogen 22 mg/dL (8-23); Calcium 7.3 mg/dL (8.6-10.3); Carbon Dioxide 23 mEq/L (23-29); Chloride 108 mEq/L (98-107); Globulin 2.2 g/dL (2.4-3.5); Glucose 56 mg/dL (70-105); Iron 86 mcg/dL (50-170); Macrocytosis Present (Not Present); Osmolality,Calculated 291 (280-300); Poikilocytosis 1+ (Not Present); Potassium 3.4 mEq/L (3.5-5.1); Sodium 140 mEq/L (136-145); Target Cells 1+ (Not Present); eGFR For African Americans > 60 (> 60); eGFR For Non-African Americans > 60 (> 60)
[2021-07-08 05:24] LABS: Ferritin 155 ng/mL (10-120)
[2021-07-08 05:29] LABS: Folate 2.5 ng/mL (3.0-16.0)
[2021-07-08 06:01] LABS: % Iron Saturation 69 % (15-50); Transferrin 89 mg/dL (203-362)
[2021-07-08] MEDS ORDERED: Dextrose 4 GM Chewable Tablets PO PRN (07:22)
[2021-07-08] MEDS: *HR* Dextrose 50 % in Water (Syg) 50 ML SYRINGE IVP PRN (07:33)
[2021-07-08] MEDS: Aspirin 81 MG TAB.CHEW PO SCH (09:36)
[2021-07-08] MEDS: *HR* Amiodarone 200 MG TABLET PO SCH (09:36)
[2021-07-08] MEDS: Folic Acid 1 MG TABLET PO SCH (09:37)
[2021-07-08] MEDS: Ertapenem 1,000 MG in 0.9 % Sodium Chloride Mini Bag 100 ML IVPB SCH (09:38)
[2021-07-08] MEDS ORDERED: Potassium Chloride Elixir 20 MEQ/15 ML UDC PO ONE (10:16)
[2021-07-08] MEDS ORDERED: 0.9 % Sodium Chloride 250 ML ONE (10:51)
[2021-07-08] MEDS ORDERED: D5% in Water 1,000 ML IVC PRN (14:13)
[2021-07-08] MEDS: D5% in Water 1,000 ML IVC PRN (14:41)
[2021-07-08 16:49] LABS: Hematocrit 28.9 % (35.3-44.9); Hemoglobin 9.4 g/dL (11.5-15.4)
[2021-07-08] MEDS: Ondansetron 4 MG/2 ML VIAL IVP PRN (22:19)
[2021-07-09] MEDS: D5% in Water 1,000 ML IVC PRN ×3 (00:35→19:49)
[2021-07-09 03:46] LABS: Hematocrit 27.8 % (35.3-44.9); Hemoglobin 8.7 g/dL (11.5-15.4); Immature Platelets 5.6 % (1.1-6.1); Mean Corpuscular HGB Conc 31.3 g/dL (31.6-35.5); Mean Corpuscular Hemoglobin 31.2 pg (28.0-33.3); Mean Corpuscular Volume 99.6 fL (83.0-100.0); Mean Platelet Volume 11.1 fL (9.4-12.4); Red Blood Count 2.79 M/mcL (3.82-4.97); Red Cell Distribution Width 17.6 % (11.5-14.5); White Blood Count 8.9 K/mcL (4.3-11.1)
[2021-07-09 04:06] LABS: BUN/Creatinine Ratio 21 (6-26); Blood Urea Nitrogen 16 mg/dL (8-23); Calcium 7.4 mg/dL (8.6-10.3); Carbon Dioxide 25 mEq/L (23-29); Chloride 101 mEq/L (98-107); Glucose 79 mg/dL (70-105); Osmolality,Calculated 280 (280-300); Potassium 3.1 mEq/L (3.5-5.1); Sodium 135 mEq/L (136-145); eGFR For African Americans > 60 (> 60); eGFR For Non-African Americans > 60 (> 60)
[2021-07-09 04:07] LABS: Magnesium 1.3 mg/dL (1.6-2.6); Phosphorous 1.4 mg/dL (2.7-4.5)
[2021-07-09] MEDS: Ondansetron 4 MG/2 ML VIAL IVP PRN (05:00)
[2021-07-09] MEDS: *HR* OxyCODONE/APAP 5/325 TABLET PO PRN ×2 (05:01→08:54)
[2021-07-09] MEDS: Ertapenem 1,000 MG in 0.9 % Sodium Chloride Mini Bag 100 ML IVPB SCH (08:45)
[2021-07-09] MEDS: Folic Acid 1 MG TABLET PO SCH (08:45)
[2021-07-09] MEDS: *HR* Amiodarone 200 MG TABLET PO SCH (08:45)
[2021-07-09] MEDS: Aspirin 81 MG TAB.CHEW PO SCH (08:45)
[2021-07-09] MEDS: Magnesium Oxide 400 MG TABLET PO SCH ×2 (11:19→19:48)
[2021-07-10] MEDS: *HR* OxyCODONE/APAP 5/325 TABLET PO PRN ×3 (04:13→20:43)
[2021-07-10] MEDS: D5% in Water 1,000 ML IVC PRN ×2 (05:21→16:37)
[2021-07-10 07:22] LABS: Hematocrit 28.7 % (35.3-44.9); Mean Corpuscular HGB Conc 31.7 g/dL (31.6-35.5); Mean Corpuscular Hemoglobin 31.2 pg (28.0-33.3); Mean Platelet Volume 11.9 fL (9.4-12.4); Red Blood Count 2.92 M/mcL (3.82-4.97); Red Cell Distribution Width 16.6 % (11.5-14.5); White Blood Count 8.5 K/mcL (4.3-11.1)
[2021-07-10 07:23] LABS: Hemoglobin 9.1 g/dL (11.5-15.4); Mean Corpuscular Volume 98.3 fL (83.0-100.0); Platelet Count 53 K/mcL (140-400)
[2021-07-10] MEDS: Folic Acid 1 MG TABLET PO SCH (07:29)
[2021-07-10] MEDS: *HR* Amiodarone 200 MG TABLET PO SCH (07:29)
[2021-07-10] MEDS: Magnesium Oxide 400 MG TABLET PO SCH ×2 (07:29→20:40)
[2021-07-10] MEDS: Aspirin 81 MG TAB.CHEW PO SCH (07:29)
[2021-07-10] MEDS: Ertapenem 1,000 MG in 0.9 % Sodium Chloride Mini Bag 100 ML IVPB SCH (07:30)
[2021-07-10 08:14] LABS: Alanine Aminotransferase 5 Units/L (7-52); Albumin 1.7 g/dL (3.5-5.7); Albumin/Globulin Ratio 0.8 (1.1-2.2); Alkaline Phosphatase 100 Units/L (34-104); Aspartate Amino Transferase 11 Units/L (13-39); BUN/Creatinine Ratio 16 (6-26); Bilirubin,Total 0.8 mg/dL (0.3-1.0); Blood Urea Nitrogen 9 mg/dL (8-23); Calcium 7.2 mg/dL (8.6-10.3); Carbon Dioxide 24 mEq/L (23-29); Chloride 98 mEq/L (98-107); Globulin 2.2 g/dL (2.4-3.5); Glucose 93 mg/dL (70-105); Magnesium 1.2 mg/dL (1.6-2.6); Osmolality,Calculated 272 (280-300); Potassium 3.1 mEq/L (3.5-5.1); Sodium 132 mEq/L (136-145); Total Protein 3.9 g/dL (6.4-8.9); eGFR For African Americans > 60 (> 60); eGFR For Non-African Americans > 60 (> 60)
[2021-07-10] MEDS: Pantoprazole 40 MG VIAL IVP SCH (16:34)
[2021-07-10] MEDS: Morphine Sulfate 2 MG/ML SYRINGE IVP PRN (16:58)
[2021-07-11] MEDS: Morphine Sulfate 2 MG/ML SYRINGE IVP PRN ×4 (01:25→21:24)
[2021-07-11 06:14] LABS: Basophils % 0.4 %; Mean Corpuscular Volume 99.2 fL (83.0-100.0); Segmented Neutrophils % 59.2 %
[2021-07-11 06:16] LABS: Eosinophils # 0.2 K/mcL (0.0-0.6); Eosinophils % 2.5 %; Hematocrit 26.3 % (35.3-44.9); Hemoglobin 8.3 g/dL (11.5-15.4); Immature Granulocytes % 0.8 % (0-4); Lymphocytes # 1.9 K/mcL (0.6-4.6); Lymphocytes % 24.6 %; Mean Corpuscular HGB Conc 31.6 g/dL (31.6-35.5); Mean Corpuscular Hemoglobin 31.3 pg (28.0-33.3); Mean Platelet Volume 11.6 fL (9.4-12.4); Monocytes % 12.5 %; Neutrophils # 4.7 K/mcL (1.6-8.9); Nucleated Red Blood Cells 0.3 /100 WBC (0); Red Blood Count 2.65 M/mcL (3.82-4.97); Red Cell Distribution Width 16.2 % (11.5-14.5); White Blood Count 7.9 K/mcL (4.3-11.1)
[2021-07-11 06:19] LABS: Platelet Count 42 K/mcL (140-400)
[2021-07-11] MEDS: Pantoprazole 40 MG VIAL IVP SCH ×2 (06:38→17:11)
[2021-07-11 06:49] LABS: Alanine Aminotransferase 5 Units/L (7-52); Albumin 1.6 g/dL (3.5-5.7); Albumin/Globulin Ratio 0.8 (1.1-2.2); Alkaline Phosphatase 99 Units/L (34-104); Aspartate Amino Transferase 10 Units/L (13-39); BUN/Creatinine Ratio 12 (6-26); Bilirubin,Total 0.7 mg/dL (0.3-1.0); Blood Urea Nitrogen 6 mg/dL (8-23); Calcium 7.2 mg/dL (8.6-10.3); Carbon Dioxide 25 mEq/L (23-29); Chloride 100 mEq/L (98-107); Glucose 87 mg/dL (70-105); Magnesium 1.7 mg/dL (1.6-2.6); Osmolality,Calculated 273 (280-300); Potassium 3.6 mEq/L (3.5-5.1); Sodium 133 mEq/L (136-145); Total Protein 3.6 g/dL (6.4-8.9); eGFR For African Americans > 60 (> 60); eGFR For Non-African Americans > 60 (> 60)
[2021-07-11] MEDS: Aspirin 81 MG TAB.CHEW PO SCH ×2 (09:53→10:34)
[2021-07-11] MEDS: Magnesium Oxide 400 MG TABLET PO SCH ×2 (09:53→19:47)
[2021-07-11] MEDS: *HR* Amiodarone 200 MG TABLET PO SCH ×2 (09:53→10:34)
[2021-07-11] MEDS: Ertapenem 1,000 MG in 0.9 % Sodium Chloride Mini Bag 100 ML IVPB SCH (09:54)
[2021-07-11] MEDS: Folic Acid 1 MG TABLET PO SCH ×2 (09:54→10:34)
[2021-07-11] MEDS: Ondansetron 4 MG/2 ML VIAL IVP PRN ×2 (10:04→23:47)
[2021-07-11] MEDS: D5% in Water 1,000 ML IVC PRN (14:42)
[2021-07-12 05:09] LABS: Basophils % 0.3 %; Hemoglobin 8.7 g/dL (11.5-15.4); Red Cell Distribution Width 15.9 % (11.5-14.5)
[2021-07-12 05:11] LABS: Eosinophils # 0.1 K/mcL (0.0-0.6); Eosinophils % 1.2 %; Hematocrit 26.5 % (35.3-44.9); Immature Granulocytes % 1.1 % (0-4); Lymphocytes # 2.5 K/mcL (0.6-4.6); Lymphocytes % 27.7 %; Mean Corpuscular HGB Conc 32.8 g/dL (31.6-35.5); Mean Corpuscular Hemoglobin 31.8 pg (28.0-33.3); Mean Corpuscular Volume 96.7 fL (83.0-100.0); Mean Platelet Volume 12.6 fL (9.4-12.4); Monocytes # 1.1 K/mcL (0.0-1.3); Monocytes % 11.8 %; Neutrophils # 5.2 K/mcL (1.6-8.9); Red Blood Count 2.74 M/mcL (3.82-4.97); Segmented Neutrophils % 57.9 %
[2021-07-12 05:15] LABS: Platelet Count 43 K/mcL (140-400)
[2021-07-12 05:23] LABS: BUN/Creatinine Ratio 12 (6-26); Blood Urea Nitrogen 6 mg/dL (8-23); Calcium 7.5 mg/dL (8.6-10.3); Carbon Dioxide 24 mEq/L (23-29); Chloride 102 mEq/L (98-107); Glucose 84 mg/dL (70-105); Osmolality,Calculated 275 (280-300); Sodium 134 mEq/L (136-145); eGFR For African Americans > 60 (> 60); eGFR For Non-African Americans > 60 (> 60)
[2021-07-12] MEDS: Aspirin 81 MG TAB.CHEW PO SCH (08:46)
[2021-07-12] MEDS: *HR* Amiodarone 200 MG TABLET PO SCH (08:46)
[2021-07-12] MEDS: Folic Acid 1 MG TABLET PO SCH (08:46)
[2021-07-12] MEDS: Ertapenem 1,000 MG in 0.9 % Sodium Chloride Mini Bag 100 ML IVPB SCH (08:46)
[2021-07-12] MEDS: Morphine Sulfate 2 MG/ML SYRINGE IVP PRN (08:47)
[2021-07-12] MEDS: Magnesium Oxide 400 MG TABLET PO SCH ×2 (08:47→19:43)
[2021-07-12] MEDS ORDERED: Acetaminophen IV 1,000 MG/100 ML BAG IVPB ONE (11:00)
[2021-07-12] MEDS: *HR* OxyCODONE/APAP 10/325 TABLET PO PRN ×2 (14:15→19:55)
[2021-07-12] MEDS: Ondansetron 4 MG/2 ML VIAL IVP PRN ×2 (14:23→19:55)
[2021-07-12] MEDS ORDERED: *HR* Alteplase (Cathflo) 2 MG VIAL IVP ONE (15:43)
[2021-07-13] MEDS: *HR* OxyCODONE/APAP 10/325 TABLET PO PRN ×4 (02:28→22:29)
[2021-07-13] MEDS: Ondansetron 4 MG/2 ML VIAL IVP PRN ×2 (02:28→22:49)
[2021-07-13 04:34] LABS: Basophils % 0.5 %; Eosinophils # 0.3 K/mcL (0.0-0.6); Eosinophils % 3.2 %; Hematocrit 26.1 % (35.3-44.9); Hemoglobin 8.6 g/dL (11.5-15.4); Immature Granulocytes % 2.1 % (0-4); Lymphocytes # 2.2 K/mcL (0.6-4.6); Mean Corpuscular Hemoglobin 32.1 pg (28.0-33.3); Mean Corpuscular Volume 97.4 fL (83.0-100.0); Mean Platelet Volume 11.9 fL (9.4-12.4); Monocytes # 0.9 K/mcL (0.0-1.3); Monocytes % 9.9 %; Neutrophils # 5.2 K/mcL (1.6-8.9); Nucleated Red Blood Cells 0.2 /100 WBC (0); Platelet Count 44 K/mcL (140-400); Red Blood Count 2.68 M/mcL (3.82-4.97); Red Cell Distribution Width 15.8 % (11.5-14.5); Segmented Neutrophils % 59.3 %; White Blood Count 8.8 K/mcL (4.3-11.1)
[2021-07-13 04:38] LABS: BUN/Creatinine Ratio 15 (6-26); Blood Urea Nitrogen 8 mg/dL (8-23); Calcium 7.5 mg/dL (8.6-10.3); Carbon Dioxide 24 mEq/L (23-29); Chloride 102 mEq/L (98-107); Glucose 75 mg/dL (70-105); Osmolality,Calculated 273 (280-300); Potassium 3.9 mEq/L (3.5-5.1); Sodium 133 mEq/L (136-145); eGFR For African Americans > 60 (> 60); eGFR For Non-African Americans > 60 (> 60)
[2021-07-13] MEDS: Aspirin 81 MG TAB.CHEW PO SCH (09:55)
[2021-07-13] MEDS: Folic Acid 1 MG TABLET PO SCH (09:55)
[2021-07-13] MEDS: *HR* Amiodarone 200 MG TABLET PO SCH (09:55)
[2021-07-13] MEDS: Apixaban 5 MG TABLET PO SCH (09:55)
[2021-07-13] MEDS: Magnesium Oxide 400 MG TABLET PO SCH ×2 (09:55→22:30)
[2021-07-13] MEDS: Ertapenem 1,000 MG in 0.9 % Sodium Chloride Mini Bag 100 ML IVPB SCH ×2 (09:56→10:51)
[2021-07-13] MEDS ORDERED: Ertapenem 1,000 MG in 0.9 % Sodium Chloride Mini Bag 100 ML IVPB ONE (14:11)
[2021-07-14] MEDS: *HR* OxyCODONE/APAP 10/325 TABLET PO PRN ×4 (02:48→19:26)
[2021-07-14 03:06] LABS: Hemoglobin 8.1 g/dL (11.5-15.4); Lymphocytes % 28.4 %; Mean Corpuscular Volume 98.4 fL (83.0-100.0)
[2021-07-14 03:08] LABS: Hematocrit 24.6 % (35.3-44.9); Immature Platelets 4.9 % (1.1-6.1); Mean Corpuscular HGB Conc 32.9 g/dL (31.6-35.5); Mean Corpuscular Hemoglobin 32.4 pg (28.0-33.3); Mean Platelet Volume 11.9 fL (9.4-12.4); Neutrophils # 4.4 K/mcL (1.6-8.9); Red Cell Distribution Width 15.4 % (11.5-14.5); Segmented Neutrophils % 59.2 %; White Blood Count 7.5 K/mcL (4.3-11.1)
[2021-07-14 03:09] LABS: Basophils % 0.4 %; Eosinophils # 0.2 K/mcL (0.0-0.6); Eosinophils % 2.5 %; Immature Granulocytes % 0.8 % (0-4); Lymphocytes # 2.1 K/mcL (0.6-4.6); Monocytes # 0.7 K/mcL (0.0-1.3); Monocytes % 8.7 %
[2021-07-14 03:12] LABS: Platelet Count 57 K/mcL (140-400)
[2021-07-14 03:28] LABS: BUN/Creatinine Ratio 18 (6-26); Blood Urea Nitrogen 9 mg/dL (8-23); Calcium 7.4 mg/dL (8.6-10.3); Carbon Dioxide 26 mEq/L (23-29); Chloride 101 mEq/L (98-107); Glucose 65 mg/dL (70-105); Osmolality,Calculated 275 (280-300); Potassium 3.6 mEq/L (3.5-5.1); Sodium 134 mEq/L (136-145); eGFR For African Americans > 60 (> 60); eGFR For Non-African Americans > 60 (> 60)
[2021-07-14] MEDS: *HR* Dextrose 50 % in Water (Syg) 50 ML SYRINGE IVP PRN (07:01)
[2021-07-14] MEDS: Aspirin 81 MG TAB.CHEW PO SCH (09:53)
[2021-07-14] MEDS: lisinopriL 10 MG TABLET PO SCH (09:53)
[2021-07-14] MEDS: *HR* Amiodarone 200 MG TABLET PO SCH (09:53)
[2021-07-14] MEDS: Folic Acid 1 MG TABLET PO SCH (09:54)
[2021-07-14] MEDS: Furosemide 20 MG TABLET PO SCH (09:54)
[2021-07-14] MEDS: Magnesium Oxide 400 MG TABLET PO SCH ×2 (09:54→20:49)
[2021-07-14] MEDS: Apixaban 5 MG TABLET PO SCH (09:54)
[2021-07-14] MEDS: Ondansetron 4 MG/2 ML VIAL IVP PRN (10:08)
[2021-07-14] MEDS: Fluticasone Propionate Nasal 50 MCG/SPRAY BOTTLE NS SCH (10:09)
[2021-07-15] MEDS: *HR* OxyCODONE/APAP 10/325 TABLET PO PRN ×4 (03:42→18:22)
[2021-07-15 07:40] LABS: Basophils % 0.5 %; Hemoglobin 7.8 g/dL (11.5-15.4); Monocytes % 8.1 %
[2021-07-15 07:42] LABS: Eosinophils # 0.1 K/mcL (0.0-0.6); Eosinophils % 0.6 %; Immature Granulocytes % 0.6 % (0-4); Immature Platelets 5.8 % (1.1-6.1); Lymphocytes # 2.1 K/mcL (0.6-4.6); Lymphocytes % 26.5 %; Mean Corpuscular HGB Conc 32.5 g/dL (31.6-35.5); Mean Corpuscular Hemoglobin 32.1 pg (28.0-33.3); Mean Corpuscular Volume 98.8 fL (83.0-100.0); Mean Platelet Volume 11.1 fL (9.4-12.4); Monocytes # 0.6 K/mcL (0.0-1.3); Red Blood Count 2.43 M/mcL (3.82-4.97); Red Cell Distribution Width 15.6 % (11.5-14.5); Segmented Neutrophils % 63.7 %; White Blood Count 7.9 K/mcL (4.3-11.1)
[2021-07-15] MEDS: lisinopriL 10 MG TABLET PO SCH (07:47)
[2021-07-15] MEDS: Folic Acid 1 MG TABLET PO SCH (07:47)
[2021-07-15] MEDS: Aspirin 81 MG TAB.CHEW PO SCH (07:47)
[2021-07-15] MEDS: Apixaban 5 MG TABLET PO SCH (07:47)
[2021-07-15] MEDS: Furosemide 20 MG TABLET PO SCH (07:47)
[2021-07-15] MEDS: Magnesium Oxide 400 MG TABLET PO SCH ×2 (07:47→20:16)
[2021-07-15] MEDS: *HR* Amiodarone 200 MG TABLET PO SCH (07:47)
[2021-07-15 07:57] LABS: Platelet Count 65 K/mcL (140-400); Platelet Estimate Decreased (Normal)
[2021-07-15] MEDS: Fluticasone Propionate Nasal 50 MCG/SPRAY BOTTLE NS SCH (10:43)
[2021-07-15] MEDS: Mirtazapine 15 MG TABLET PO SCH (20:17)
[2021-07-15] MEDS: *HR* Dextrose 50 % in Water (Syg) 50 ML SYRINGE IVP PRN (22:02)
[2021-07-16] MEDS: Dextrose 4 GM Chewable Tablets PO PRN (00:42)
[2021-07-16 01:57] LABS: Basophils # 0.1 K/mcL (0.0-0.2); Basophils % 0.6 %; Eosinophils # 0.3 K/mcL (0.0-0.6); Eosinophils % 2.7 %; Hemoglobin 8.6 g/dL (11.5-15.4); Lymphocytes # 3.5 K/mcL (0.6-4.6); Lymphocytes % 33.8 %; Mean Corpuscular HGB Conc 31.9 g/dL (31.6-35.5); Mean Corpuscular Hemoglobin 31.7 pg (28.0-33.3); Mean Corpuscular Volume 99.6 fL (83.0-100.0); Mean Platelet Volume 11.6 fL (9.4-12.4); Monocytes # 0.8 K/mcL (0.0-1.3); Monocytes % 7.8 %; Neutrophils # 5.5 K/mcL (1.6-8.9); Nucleated Red Blood Cells 0.2 /100 WBC (0); Red Blood Count 2.71 M/mcL (3.82-4.97); Red Cell Distribution Width 15.5 % (11.5-14.5); Segmented Neutrophils % 54.1 %; White Blood Count 10.2 K/mcL (4.3-11.1)
[2021-07-16 01:59] LABS: Platelet Count 70 K/mcL (140-400)
[2021-07-16 02:31] LABS: % Iron Saturation 32 % (15-50); Iron 44 mcg/dL (50-170); Transferrin 97 mg/dL (203-362)
[2021-07-16 02:38] LABS: Ferritin 270 ng/mL (10-120)
[2021-07-16] MEDS ORDERED: Dextrose Gel 15 GM/37.5 ML TUBE PO ONE (04:54)
[2021-07-16] MEDS: *HR* OxyCODONE/APAP 10/325 TABLET PO PRN (05:04)
[2021-07-16 06:32] LABS: Folate 7.4 ng/mL (3.0-16.0)
[2021-07-16] MEDS: Apixaban 5 MG TABLET PO SCH ×2 (09:56→21:08)
[2021-07-16] MEDS: Folic Acid 1 MG TABLET PO SCH (09:56)
[2021-07-16] MEDS: Fluticasone Propionate Nasal 50 MCG/SPRAY BOTTLE NS SCH (09:56)
[2021-07-16] MEDS: Magnesium Oxide 400 MG TABLET PO SCH ×2 (09:56→21:08)
[2021-07-16] MEDS: Aspirin 81 MG TAB.CHEW PO SCH (09:56)
[2021-07-16] MEDS: *HR* Amiodarone 200 MG TABLET PO SCH (09:56)
[2021-07-16] MEDS: Furosemide 20 MG TABLET PO SCH (10:27)
[2021-07-16] MEDS: Albumin 25% 25gram/100mL 25 GM/100 ML IV.SOLN IVC SCH ×2 (10:27→12:23)
[2021-07-16] MEDS: lisinopriL 10 MG TABLET PO SCH (10:27)
[2021-07-16] MEDS: Mirtazapine 15 MG TABLET PO SCH (21:08)
[2021-07-17] MEDS: lisinopriL 10 MG TABLET PO SCH (09:10)
[2021-07-17] MEDS: Apixaban 5 MG TABLET PO SCH ×2 (09:10→20:35)
[2021-07-17] MEDS: Magnesium Oxide 400 MG TABLET PO SCH ×2 (09:10→20:35)
[2021-07-17] MEDS: *HR* Amiodarone 200 MG TABLET PO SCH (09:10)
[2021-07-17] MEDS: Folic Acid 1 MG TABLET PO SCH (09:10)
[2021-07-17] MEDS: Furosemide 20 MG TABLET PO SCH (09:10)
[2021-07-17] MEDS: Fluticasone Propionate Nasal 50 MCG/SPRAY BOTTLE NS SCH (09:11)
[2021-07-17 10:31] LABS: Basophils # 0.1 K/mcL (0.0-0.2); Basophils % 0.6 %; Eosinophils % 0.2 %; Hemoglobin 7.7 g/dL (11.5-15.4); Immature Granulocytes % 2.1 % (0-4); Lymphocytes # 2.6 K/mcL (0.6-4.6); Mean Corpuscular HGB Conc 33.5 g/dL (31.6-35.5); Mean Corpuscular Volume 95.4 fL (83.0-100.0); Mean Platelet Volume 11.3 fL (9.4-12.4); Monocytes # 0.6 K/mcL (0.0-1.3); Monocytes % 6.9 %; Neutrophils # 5.1 K/mcL (1.6-8.9); Nucleated Red Blood Cells 0.4 /100 WBC (0); Red Blood Count 2.41 M/mcL (3.82-4.97); Red Cell Distribution Width 15.2 % (11.5-14.5); Segmented Neutrophils % 60.2 %; White Blood Count 8.5 K/mcL (4.3-11.1)
[2021-07-17 10:33] LABS: Platelet Count 89 K/mcL (140-400)
[2021-07-17] MEDS: Mirtazapine 15 MG TABLET PO SCH (20:35)
[2021-07-18] MEDS: *HR* OxyCODONE/APAP 10/325 TABLET PO PRN (03:09)
[2021-07-18 06:04] LABS: Basophils % 0.8 %
[2021-07-18 06:06] LABS: Basophils # 0.1 K/mcL (0.0-0.2); Eosinophils # 0.2 K/mcL (0.0-0.6); Eosinophils % 2.6 %; Hematocrit 21.9 % (35.3-44.9); Hemoglobin 6.9 g/dL (11.5-15.4); Immature Granulocytes % 0.6 % (0-4); Immature Platelets 4.9 % (1.1-6.1); Lymphocytes # 1.9 K/mcL (0.6-4.6); Lymphocytes % 30.7 %; Mean Corpuscular HGB Conc 31.5 g/dL (31.6-35.5); Mean Corpuscular Hemoglobin 30.9 pg (28.0-33.3); Mean Corpuscular Volume 98.2 fL (83.0-100.0); Monocytes # 0.5 K/mcL (0.0-1.3); Monocytes % 7.9 %; Neutrophils # 3.6 K/mcL (1.6-8.9); Red Blood Count 2.23 M/mcL (3.82-4.97); Red Cell Distribution Width 15.5 % (11.5-14.5); Segmented Neutrophils % 57.4 %; White Blood Count 6.2 K/mcL (4.3-11.1)
[2021-07-18 06:14] LABS: Platelet Count 85 K/mcL (140-400)
[2021-07-18 06:24] LABS: BUN/Creatinine Ratio 11 (6-26); Blood Urea Nitrogen 7 mg/dL (8-23); Calcium 7.8 mg/dL (8.6-10.3); Carbon Dioxide 31 mEq/L (23-29); Chloride 100 mEq/L (98-107); Glucose 72 mg/dL (70-105); Osmolality,Calculated 279 (280-300); Potassium 3.6 mEq/L (3.5-5.1); Sodium 136 mEq/L (136-145); eGFR For African Americans > 60 (> 60); eGFR For Non-African Americans > 60 (> 60)
[2021-07-18] MEDS ORDERED: 0.9 % Sodium Chloride 250 ML IVC SCH ×2 (07:45→09:30)
[2021-07-18] MEDS: *HR* Amiodarone 200 MG TABLET PO SCH (08:32)
[2021-07-18] MEDS: Furosemide 20 MG TABLET PO SCH (08:32)
[2021-07-18] MEDS: Apixaban 5 MG TABLET PO SCH (08:32)
[2021-07-18] MEDS: Folic Acid 1 MG TABLET PO SCH (08:33)
[2021-07-18] MEDS: Magnesium Oxide 400 MG TABLET PO SCH ×2 (08:33→20:35)
[2021-07-18] MEDS: lisinopriL 10 MG TABLET PO SCH (08:33)
[2021-07-18] MEDS: Fluticasone Propionate Nasal 50 MCG/SPRAY BOTTLE NS SCH (08:34)
[2021-07-18 08:51] LABS: Hematocrit 19.7 % (35.3-44.9); Hemoglobin 6.6 g/dL (11.5-15.4)
[2021-07-18] MEDS ORDERED: Heparin 1,000 UNITS/500 mL 500 ML ONE (14:32)
[2021-07-18 17:46] LABS: Hematocrit 21.1 % (35.3-44.9); Hemoglobin 6.8 g/dL (11.5-15.4)
[2021-07-18] MEDS: Mirtazapine 15 MG TABLET PO SCH (20:35)
[2021-07-19] MEDS: *HR* OxyCODONE/APAP 10/325 TABLET PO PRN ×2 (00:31→20:17)
[2021-07-19 08:25] LABS: BUN/Creatinine Ratio 13 (6-26); Blood Urea Nitrogen 9 mg/dL (8-23); Calcium 7.6 mg/dL (8.6-10.3); Carbon Dioxide 35 mEq/L (23-29); Chloride 98 mEq/L (98-107); Glucose 68 mg/dL (70-105); Magnesium 1.9 mg/dL (1.6-2.6); Osmolality,Calculated 279 (280-300); Sodium 136 mEq/L (136-145); eGFR For African Americans > 60 (> 60); eGFR For Non-African Americans > 60 (> 60)
[2021-07-19 08:28] LABS: Hemoglobin 7.4 g/dL (11.5-15.4)
[2021-07-19 08:30] LABS: Hematocrit 23.1 % (35.3-44.9); Immature Platelets 6.5 % (1.1-6.1); Mean Corpuscular Hemoglobin 31.2 pg (28.0-33.3); Mean Corpuscular Volume 97.5 fL (83.0-100.0); Mean Platelet Volume 11.1 fL (9.4-12.4); Red Blood Count 2.37 M/mcL (3.82-4.97); Red Cell Distribution Width 16.1 % (11.5-14.5); White Blood Count 6.4 K/mcL (4.3-11.1)
[2021-07-19] MEDS: Furosemide 20 MG TABLET PO SCH (10:12)
[2021-07-19] MEDS: *HR* OxyCODONE/APAP 5/325 TABLET PO PRN (10:12)
[2021-07-19] MEDS: Magnesium Oxide 400 MG TABLET PO SCH ×2 (10:12→20:17)
[2021-07-19] MEDS: lisinopriL 10 MG TABLET PO SCH (10:12)
[2021-07-19] MEDS: Folic Acid 1 MG TABLET PO SCH (10:12)
[2021-07-19] MEDS: *HR* Amiodarone 200 MG TABLET PO SCH (10:12)
[2021-07-19] MEDS: Fluticasone Propionate Nasal 50 MCG/SPRAY BOTTLE NS SCH (10:13)
[2021-07-19] MEDS: Mirtazapine 15 MG TABLET PO SCH (20:17)
[2021-07-20 03:49] LABS: Hematocrit 22.5 % (35.3-44.9); Hemoglobin 7.2 g/dL (11.5-15.4); Immature Platelets 5.9 % (1.1-6.1); Mean Corpuscular Hemoglobin 31.3 pg (28.0-33.3); Mean Corpuscular Volume 97.8 fL (83.0-100.0); Mean Platelet Volume 11.2 fL (9.4-12.4); Red Blood Count 2.3 M/mcL (3.82-4.97); White Blood Count 6.6 K/mcL (4.3-11.1)
[2021-07-20 04:06] LABS: BUN/Creatinine Ratio 13 (6-26); Blood Urea Nitrogen 9 mg/dL (8-23); Calcium 7.6 mg/dL (8.6-10.3); Carbon Dioxide 34 mEq/L (23-29); Chloride 98 mEq/L (98-107); Glucose 71 mg/dL (70-105); Osmolality,Calculated 279 (280-300); Potassium 3.9 mEq/L (3.5-5.1); Sodium 136 mEq/L (136-145); eGFR For African Americans > 60 (> 60); eGFR For Non-African Americans > 60 (> 60)
[2021-07-20] MEDS: Magnesium Oxide 400 MG TABLET PO SCH ×2 (09:18→22:58)
[2021-07-20] MEDS: *HR* Amiodarone 200 MG TABLET PO SCH (09:18)
[2021-07-20] MEDS: Folic Acid 1 MG TABLET PO SCH (09:18)
[2021-07-20] MEDS: Furosemide 20 MG TABLET PO SCH (09:18)
[2021-07-20] MEDS: lisinopriL 10 MG TABLET PO SCH (09:18)
[2021-07-20] MEDS: Fluticasone Propionate Nasal 50 MCG/SPRAY BOTTLE NS SCH (09:19)
[2021-07-20] MEDS: *HR* OxyCODONE/APAP 10/325 TABLET PO PRN (17:46)
[2021-07-20] MEDS: Mirtazapine 15 MG TABLET PO SCH (22:55)
[2021-07-21] MEDS: *HR* Dextrose 50 % in Water (Syg) 50 ML SYRINGE IVP PRN ×3 (00:23→16:29)
[2021-07-21 03:50] LABS: Hemoglobin 6.6 g/dL (11.5-15.4); Mean Corpuscular Hemoglobin 30.8 pg (28.0-33.3); Mean Platelet Volume 10.9 fL (9.4-12.4); Red Blood Count 2.14 M/mcL (3.82-4.97)
[2021-07-21 03:52] LABS: Mean Corpuscular HGB Conc 31.4 g/dL (31.6-35.5); Mean Corpuscular Volume 98.1 fL (83.0-100.0); Red Cell Distribution Width 15.5 % (11.5-14.5); White Blood Count 6.3 K/mcL (4.3-11.1)
[2021-07-21 04:06] LABS: BUN/Creatinine Ratio 14 (6-26); Blood Urea Nitrogen 10 mg/dL (8-23); Calcium 7.5 mg/dL (8.6-10.3); Carbon Dioxide 34 mEq/L (23-29); Chloride 99 mEq/L (98-107); Glucose 63 mg/dL (70-105); Osmolality,Calculated 279 (280-300); Potassium 3.9 mEq/L (3.5-5.1); Sodium 136 mEq/L (136-145); eGFR For African Americans > 60 (> 60); eGFR For Non-African Americans > 60 (> 60)
[2021-07-21] MEDS: lisinopriL 10 MG TABLET PO SCH (09:00)
[2021-07-21] MEDS: *HR* OxyCODONE/APAP 10/325 TABLET PO PRN (09:00)
[2021-07-21] MEDS: Furosemide 20 MG TABLET PO SCH (09:00)
[2021-07-21] MEDS: Folic Acid 1 MG TABLET PO SCH (09:01)
[2021-07-21] MEDS: *HR* Amiodarone 200 MG TABLET PO SCH (09:01)
[2021-07-21] MEDS: Magnesium Oxide 400 MG TABLET PO SCH ×2 (09:01→21:38)
[2021-07-21] MEDS: Fluticasone Propionate Nasal 50 MCG/SPRAY BOTTLE NS SCH (09:04)
[2021-07-21 09:27] LABS: Hematocrit 21.9 % (35.3-44.9)
[2021-07-21] MEDS: Mirtazapine 15 MG TABLET PO SCH (21:38)
[2021-07-21] MEDS ORDERED: D10% in Water 500 ML IVC SCH (22:30)
[2021-07-22 03:53] LABS: Hematocrit 20.6 % (35.3-44.9)
[2021-07-22 03:55] LABS: Hemoglobin 6.4 g/dL (11.5-15.4); Immature Platelets 5.5 % (1.1-6.1); Mean Corpuscular HGB Conc 31.1 g/dL (31.6-35.5); Mean Corpuscular Hemoglobin 30.5 pg (28.0-33.3); Mean Corpuscular Volume 98.1 fL (83.0-100.0); Mean Platelet Volume 11.2 fL (9.4-12.4); Red Cell Distribution Width 15.7 % (11.5-14.5); White Blood Count 6.4 K/mcL (4.3-11.1)
[2021-07-22 03:57] LABS: Platelet Count 91 K/mcL (140-400)
[2021-07-22 04:09] LABS: BUN/Creatinine Ratio 12 (6-26); Blood Urea Nitrogen 11 mg/dL (8-23); Calcium 7.6 mg/dL (8.6-10.3); Carbon Dioxide 34 mEq/L (23-29); Chloride 97 mEq/L (98-107); Glucose 72 mg/dL (70-105); Osmolality,Calculated 276 (280-300); Potassium 3.9 mEq/L (3.5-5.1); Sodium 134 mEq/L (136-145); eGFR For African Americans > 60 (> 60); eGFR For Non-African Americans > 60 (> 60)
[2021-07-22 07:42] LABS: Hematocrit 21.8 % (35.3-44.9); Hemoglobin 6.9 g/dL (11.5-15.4)
[2021-07-22] MEDS: *HR* OxyCODONE/APAP 10/325 TABLET PO PRN (09:14)
[2021-07-22] MEDS: lisinopriL 10 MG TABLET PO SCH (09:15)
[2021-07-22] MEDS: Furosemide 20 MG TABLET PO SCH (09:15)
[2021-07-22] MEDS: Magnesium Oxide 400 MG TABLET PO SCH ×2 (09:15→20:36)
[2021-07-22] MEDS: Folic Acid 1 MG TABLET PO SCH (09:15)
[2021-07-22] MEDS: Fluticasone Propionate Nasal 50 MCG/SPRAY BOTTLE NS SCH (09:15)
[2021-07-22] MEDS: *HR* Amiodarone 200 MG TABLET PO SCH (09:15)
[2021-07-22] MEDS ORDERED: 0.9 % Sodium Chloride 250 ML IVC SCH (09:30)
[2021-07-22 11:28] LABS: Basophils # 0.1 K/mcL (0.0-0.2); Eosinophils # 0.1 K/mcL (0.0-0.6); Eosinophils % 1.6 %; Immature Granulocytes % 0.3 % (0-4); Lymphocytes # 2.6 K/mcL (0.6-4.6); Lymphocytes % 41.4 %; Monocytes # 0.6 K/mcL (0.0-1.3); Monocytes % 9.2 %; Neutrophils # 2.9 K/mcL (1.6-8.9); Nucleated Red Blood Cells 0.3 /100 WBC (0); Segmented Neutrophils % 46.5 %
[2021-07-22 16:53] LABS: Hematocrit 25.9 % (35.3-44.9); Hemoglobin 8.4 g/dL (11.5-15.4)
[2021-07-22] MEDS: *HR* OxyCODONE/APAP 5/325 TABLET PO PRN (20:36)
[2021-07-22] MEDS: Mirtazapine 15 MG TABLET PO SCH (20:37)
[2021-07-23 03:58] LABS: Hematocrit 26.5 % (35.3-44.9); Hemoglobin 8.4 g/dL (11.5-15.4); Immature Platelets 5.6 % (1.1-6.1); Mean Corpuscular HGB Conc 31.7 g/dL (31.6-35.5); Mean Corpuscular Hemoglobin 30.2 pg (28.0-33.3); Mean Corpuscular Volume 95.3 fL (83.0-100.0); Mean Platelet Volume 10.6 fL (9.4-12.4); Red Blood Count 2.78 M/mcL (3.82-4.97); Red Cell Distribution Width 17.1 % (11.5-14.5); White Blood Count 6.5 K/mcL (4.3-11.1)
[2021-07-23] MEDS: *HR* OxyCODONE/APAP 5/325 TABLET PO PRN ×3 (05:14→21:27)
[2021-07-23 05:20] LABS: BUN/Creatinine Ratio 13 (6-26); Blood Urea Nitrogen 10 mg/dL (8-23); Calcium 7.7 mg/dL (8.6-10.3); Carbon Dioxide 33 mEq/L (23-29); Chloride 100 mEq/L (98-107); Glucose 76 mg/dL (70-105); Osmolality,Calculated 280 (280-300); Potassium 3.9 mEq/L (3.5-5.1); Sodium 136 mEq/L (136-145); eGFR For African Americans > 60 (> 60); eGFR For Non-African Americans > 60 (> 60)
[2021-07-23] MEDS: Dextrose 4 GM Chewable Tablets PO PRN (05:25)
[2021-07-23] MEDS: *HR* Dextrose 50 % in Water (Syg) 50 ML SYRINGE IVP PRN (05:38)
[2021-07-23] MEDS: Magnesium Oxide 400 MG TABLET PO SCH ×2 (09:24→21:27)
[2021-07-23] MEDS: Fluticasone Propionate Nasal 50 MCG/SPRAY BOTTLE NS SCH (09:24)
[2021-07-23] MEDS: *HR* Amiodarone 200 MG TABLET PO SCH (09:24)
[2021-07-23] MEDS: lisinopriL 10 MG TABLET PO SCH (09:24)
[2021-07-23] MEDS: Folic Acid 1 MG TABLET PO SCH (09:24)
[2021-07-23] MEDS: Furosemide 20 MG TABLET PO SCH (09:24)
[2021-07-23] MEDS: Mirtazapine 15 MG TABLET PO SCH (21:27)
[2021-07-24] MEDS: *HR* Dextrose 50 % in Water (Syg) 50 ML SYRINGE IVP PRN ×2 (04:18→17:30)
[2021-07-24] MEDS: *HR* OxyCODONE/APAP 5/325 TABLET PO PRN (05:31)
[2021-07-24 06:12] LABS: Mean Corpuscular Volume 96.6 fL (83.0-100.0)
[2021-07-24 06:14] LABS: Hematocrit 25.8 % (35.3-44.9); Immature Platelets 6.4 % (1.1-6.1); Mean Platelet Volume 11.2 fL (9.4-12.4); Red Blood Count 2.67 M/mcL (3.82-4.97); Red Cell Distribution Width 16.5 % (11.5-14.5); White Blood Count 6.2 K/mcL (4.3-11.1)
[2021-07-24 06:34] LABS: BUN/Creatinine Ratio 11 (6-26); Blood Urea Nitrogen 11 mg/dL (8-23); Calcium 7.7 mg/dL (8.6-10.3); Carbon Dioxide 33 mEq/L (23-29); Chloride 100 mEq/L (98-107); Glucose 78 mg/dL (70-105); Osmolality,Calculated 284 (280-300); Potassium 3.7 mEq/L (3.5-5.1); Sodium 138 mEq/L (136-145); eGFR For African Americans > 60 (> 60); eGFR For Non-African Americans 57 (> 60)
[2021-07-24] MEDS: lisinopriL 10 MG TABLET PO SCH (09:16)
[2021-07-24] MEDS: Fluticasone Propionate Nasal 50 MCG/SPRAY BOTTLE NS SCH (09:33)
[2021-07-24] MEDS: Magnesium Oxide 400 MG TABLET PO SCH ×2 (09:33→19:54)
[2021-07-24] MEDS: Furosemide 20 MG TABLET PO SCH (09:33)
[2021-07-24] MEDS: *HR* Amiodarone 200 MG TABLET PO SCH (09:33)
[2021-07-24] MEDS: Folic Acid 1 MG TABLET PO SCH (09:33)
[2021-07-24] MEDS: Mirtazapine 15 MG TABLET PO SCH (19:54)
[2021-07-24] MEDS: *HR* OxyCODONE/APAP 10/325 TABLET PO PRN (19:54)
[2021-07-25] MEDS: *HR* OxyCODONE/APAP 10/325 TABLET PO PRN (06:16)
[2021-07-25] MEDS: Folic Acid 1 MG TABLET PO SCH (08:52)
[2021-07-25] MEDS: Magnesium Oxide 400 MG TABLET PO SCH ×2 (08:52→21:25)
[2021-07-25] MEDS: Fluticasone Propionate Nasal 50 MCG/SPRAY BOTTLE NS SCH (08:53)
[2021-07-25] MEDS: Furosemide 20 MG TABLET PO SCH (08:55)
[2021-07-25] MEDS: lisinopriL 10 MG TABLET PO SCH (08:56)
[2021-07-25] MEDS: *HR* Amiodarone 200 MG TABLET PO SCH (09:21)
[2021-07-25 09:50] LABS: Hematocrit 26.1 % (35.3-44.9); Hemoglobin 8.3 g/dL (11.5-15.4); Mean Corpuscular HGB Conc 31.8 g/dL (31.6-35.5); Mean Corpuscular Hemoglobin 30.4 pg (28.0-33.3); Mean Corpuscular Volume 95.6 fL (83.0-100.0); Mean Platelet Volume 10.6 fL (9.4-12.4); Platelet Count 142 K/mcL (140-400); Red Blood Count 2.73 M/mcL (3.82-4.97); Red Cell Distribution Width 16.4 % (11.5-14.5); White Blood Count 6.8 K/mcL (4.3-11.1)
[2021-07-25] MEDS: *HR* Dextrose 50 % in Water (Syg) 50 ML SYRINGE IVP PRN (11:15)
[2021-07-25 19:49] LABS: Adenovirus Not Detected (Not Detect); Bordetella Pertussis Not Detected (Not Detect); Chlamydophila pneumoniae Not Detected (Not Detect); Coronavirus 229E Not Detected (Not Detect); Coronavirus HKU1 Not Detected (Not Detect); Coronavirus NL63 Not Detected (Not Detect); Coronavirus OC43 Not Detected (Not Detect); Human Metapneumovirus Not Detected (Not Detect); Human Rhinovirus/Enterovirus Not Detected (Not Detect); Influenza A Subtype 2009 H1 Not Detected (Not Detect); Influenza B Not Detected (Not Detect); Mycoplasma pneumoniae Not Detected (Not Detect); Parainfluenza Virus 1 Not Detected (Not Detect); Parainfluenza Virus 2 Not Detected (Not Detect); Parainfluenza Virus 3 Not Detected (Not Detect); Parainfluenza Virus 4 Not Detected (Not Detect); Respiratory Syncytial Virus Not Detected (Not Detect); SARS-CoV-2 Not Detected (Not Detect)
[2021-07-25] MEDS: Mirtazapine 15 MG TABLET PO SCH (21:25)
[2021-07-26 05:44] VITALS: O2SAT 100
[2021-07-26] MEDS: *HR* Dextrose 50 % in Water (Syg) 50 ML SYRINGE IVP PRN (06:57)
[2021-07-26] MEDS: Fluticasone Propionate Nasal 50 MCG/SPRAY BOTTLE NS SCH (08:13)
[2021-07-26] MEDS: Furosemide 20 MG TABLET PO SCH (08:13)
[2021-07-26] MEDS: Magnesium Oxide 400 MG TABLET PO SCH (08:13)
[2021-07-26] MEDS: Folic Acid 1 MG TABLET PO SCH (08:13)
[2021-07-26] MEDS: *HR* Amiodarone 200 MG TABLET PO SCH (08:13)
[2021-07-26] MEDS ORDERED: lisinopriL 10 MG TABLET PO SCH (09:00)
[2021-07-26 09:24] VITALS: BP 104/66; PULSE 80; TEMP 98.3
== END 2021-07-26 13:20 | DRG 710 ==
LOC: EMEROOARM 23:46 → ICNU 07-05 05:06 → SUATTDRO 07-05 05:06 → 2NNU 07-05 05:57 → ICNU 07-05 06:00 → 2ANU 07-06 16:58
PROVIDERS: ADMIT Internal Medicine; ATTEND Internal Medicine

== ENCOUNTER 2021-09-02 09:42 | Inpatient (IN) ==
[2021-09-02] MEDS ORDERED: Naloxone 0.4 MG/ML INJ IVP PRN (11:33)
[2021-09-02] MEDS ORDERED: Ibuprofen 400 MG TABLET PO PRN (11:33)
[2021-09-02] MEDS ORDERED: Melatonin 3 MG TABLET PO PRN (11:33)
[2021-09-02] MEDS: Ondansetron 4 MG/2 ML VIAL IVP PRN ×2 (11:52→22:13)
[2021-09-02] MEDS: D5% in Lactated Ringers 1,000 ML IVC SCH ×2 (12:43→22:14)
[2021-09-02] MEDS: Ertapenem 1,000 MG in 0.9 % Sodium Chloride Mini Bag 100 ML IVPB SCH (16:06)
[2021-09-02] MEDS: Scopolamine Patch 1.5 MG PATCH.TD72 TD SCH (16:06)
[2021-09-02] MEDS: Calcium Gluconate 1gm/50mL 1 GM/50 ML BAG IVPB SCH ×3 (16:06→17:43)
[2021-09-02] MEDS: Pantoprazole 40 MG VIAL IVP SCH (17:43)
[2021-09-03] MEDS: D5% in Lactated Ringers 1,000 ML IVC SCH ×3 (05:58→22:32)
[2021-09-03] MEDS: Pantoprazole 40 MG VIAL IVP SCH ×2 (06:00→18:05)
[2021-09-03] MEDS ORDERED: *HR* Enoxaparin 30 MG/0.3 ML SYRINGE SQ SCH (06:00)
[2021-09-03 08:22] LABS: Mean Corpuscular Volume 91.8 fL (83.0-100.0); Red Cell Distribution Width 16.3 % (11.5-14.5)
[2021-09-03 08:24] LABS: Basophils % 0.5 %; Eosinophils # 0.2 K/mcL (0.0-0.6); Eosinophils % 4.6 %; Hematocrit 23.5 % (35.3-44.9); Hemoglobin 7.7 g/dL (11.5-15.4); Immature Granulocytes % 0.3 % (0-4); Immature Platelets 3.7 % (1.1-6.1); Lymphocytes # 2.3 K/mcL (0.6-4.6); Mean Corpuscular HGB Conc 32.8 g/dL (31.6-35.5); Mean Corpuscular Hemoglobin 30.1 pg (28.0-33.3); Mean Platelet Volume 10.5 fL (9.4-12.4); Monocytes # 0.2 K/mcL (0.0-1.3); Monocytes % 5.9 %; Neutrophils # 1.2 K/mcL (1.6-8.9); Red Blood Count 2.56 M/mcL (3.82-4.97); Segmented Neutrophils % 29.7 %; White Blood Count 3.9 K/mcL (4.3-11.1)
[2021-09-03 08:26] LABS: Platelet Count 56 K/mcL (140-400)
[2021-09-03 08:30] LABS: Alanine Aminotransferase 3 Units/L (7-52); Albumin 1.7 g/dL (3.5-5.7); Albumin/Globulin Ratio 0.7 (1.1-2.2); Alkaline Phosphatase 85 Units/L (34-104); Aspartate Amino Transferase 10 Units/L (13-39); BUN/Creatinine Ratio 9 (6-26); Bilirubin,Total 0.5 mg/dL (0.3-1.0); Blood Urea Nitrogen 6 mg/dL (8-23); Calcium 7.9 mg/dL (8.6-10.3); Carbon Dioxide 30 mEq/L (23-29); Chloride 96 mEq/L (98-107); Globulin 2.4 g/dL (2.4-3.5); Glucose 83 mg/dL (70-105); Osmolality,Calculated 273 (280-300); Potassium 3.1 mEq/L (3.5-5.1); Sodium 133 mEq/L (136-145); Total Protein 4.1 g/dL (6.4-8.9); eGFR For African Americans > 60 (> 60); eGFR For Non-African Americans > 60 (> 60)
[2021-09-03] MEDS: Ertapenem 1,000 MG in 0.9 % Sodium Chloride Mini Bag 100 ML IVPB SCH (09:38)
[2021-09-03] MEDS ORDERED: Milk and Molasses Enema 200 ML RC ONE (12:48)
[2021-09-03] MEDS: Mirtazapine 15 MG TABLET PO SCH (20:22)
[2021-09-04 02:55] LABS: Basophils % 0.5 %; Hemoglobin 8.2 g/dL (11.5-15.4); Immature Granulocytes % 0.2 % (0-4); Mean Corpuscular Hemoglobin 29.9 pg (28.0-33.3); Red Blood Count 2.74 M/mcL (3.82-4.97)
[2021-09-04 02:57] LABS: Eosinophils # 0.2 K/mcL (0.0-0.6); Eosinophils % 2.7 %; Hematocrit 25.3 % (35.3-44.9); Immature Platelets 3.6 % (1.1-6.1); Lymphocytes # 3.4 K/mcL (0.6-4.6); Lymphocytes % 61.1 %; Mean Corpuscular HGB Conc 32.4 g/dL (31.6-35.5); Mean Corpuscular Volume 92.3 fL (83.0-100.0); Mean Platelet Volume 10.6 fL (9.4-12.4); Monocytes # 0.3 K/mcL (0.0-1.3); Monocytes % 5.6 %; Red Cell Distribution Width 16.2 % (11.5-14.5); Segmented Neutrophils % 29.9 %; White Blood Count 5.5 K/mcL (4.3-11.1)
[2021-09-04 03:02] LABS: Neutrophils # 1.6 K/mcL (1.6-8.9); Platelet Count 62 K/mcL (140-400)
[2021-09-04 03:13] LABS: BUN/Creatinine Ratio 8 (6-26); Blood Urea Nitrogen 5 mg/dL (8-23); Calcium 7.8 mg/dL (8.6-10.3); Carbon Dioxide 25 mEq/L (23-29); Chloride 97 mEq/L (98-107); Glucose 69 mg/dL (70-105); Magnesium 1.4 mg/dL (1.6-2.6); Osmolality,Calculated 268 (280-300); Phosphorous 1.6 mg/dL (2.7-4.5); Potassium 3.6 mEq/L (3.5-5.1); Sodium 131 mEq/L (136-145); eGFR For African Americans > 60 (> 60); eGFR For Non-African Americans > 60 (> 60)
[2021-09-04] MEDS: Pantoprazole 40 MG VIAL IVP SCH ×2 (05:16→17:19)
[2021-09-04] MEDS ORDERED: *HR* Enoxaparin 30 MG/0.3 ML SYRINGE SQ SCH (06:00)
[2021-09-04] MEDS: D5% in Lactated Ringers 1,000 ML IVC SCH ×2 (09:22→17:19)
[2021-09-04] MEDS: Aspirin Enteric Coated 81 MG Tablet PO SCH (10:33)
[2021-09-04] MEDS: *HR* Amiodarone 200 MG TABLET PO SCH (10:34)
[2021-09-04] MEDS: Ertapenem 1,000 MG in 0.9 % Sodium Chloride Mini Bag 100 ML IVPB SCH (10:34)
[2021-09-04] MEDS: Fluticasone Propionate Nasal 50 MCG/SPRAY BOTTLE NS SCH (10:34)
[2021-09-04] MEDS: Folic Acid 1 MG TABLET PO SCH (10:34)
[2021-09-04] MEDS: Sennosides 8.6 MG TABLET PO SCH (10:35)
[2021-09-04] MEDS ORDERED: Morphine Sulfate 2 MG/ML SYRINGE IVP ONE (11:00)
[2021-09-04] MEDS ORDERED: Haloperidol Lactate 5 MG/ML VIAL IVP ONE (11:00)
[2021-09-04] MEDS ORDERED: *HR* Propofol 200 MG/20 ML VIAL IVP ONE (13:53)
[2021-09-04] MEDS ORDERED: Lidocaine -MPF 2% 2 ML VIAL ONE ×2 (13:53)
[2021-09-04] MEDS: Haloperidol Oral Conc 10 MG/5 ML UDC PO SCH ×2 (15:32→21:50)
[2021-09-04] MEDS: Morphine Sulfate Oral CONC 10 MG/0.5 ML ORAL.SYG SL SCH ×2 (15:33→21:51)
[2021-09-04] MEDS: Mirtazapine 15 MG TABLET PO SCH (21:50)
[2021-09-05] MEDS: D5% in Lactated Ringers 1,000 ML IVC SCH ×3 (01:58→14:02)
[2021-09-05] MEDS: Pantoprazole 40 MG VIAL IVP SCH ×2 (06:00→17:33)
[2021-09-05 08:51] LABS: Mean Corpuscular HGB Conc 32.4 g/dL (31.6-35.5)
[2021-09-05 08:52] LABS: Basophils % 0.5 %; Eosinophils # 0.2 K/mcL (0.0-0.6); Eosinophils % 3.7 %; Hematocrit 25.9 % (35.3-44.9); Hemoglobin 8.4 g/dL (11.5-15.4); Immature Granulocytes % 0.4 % (0-4); Immature Platelets 4.1 % (1.1-6.1); Lymphocytes # 2.6 K/mcL (0.6-4.6); Mean Corpuscular Hemoglobin 29.8 pg (28.0-33.3); Mean Corpuscular Volume 91.8 fL (83.0-100.0); Mean Platelet Volume 11.6 fL (9.4-12.4); Monocytes # 0.3 K/mcL (0.0-1.3); Monocytes % 5.3 %; Neutrophils # 2.3 K/mcL (1.6-8.9); Red Blood Count 2.82 M/mcL (3.82-4.97); Segmented Neutrophils % 42.1 %; White Blood Count 5.5 K/mcL (4.3-11.1)
[2021-09-05 09:09] LABS: BUN/Creatinine Ratio 8 (6-26); Blood Urea Nitrogen 5 mg/dL (8-23); Calcium 7.3 mg/dL (8.6-10.3); Carbon Dioxide 31 mEq/L (23-29); Chloride 97 mEq/L (98-107); Glucose 90 mg/dL (70-105); Magnesium 1.7 mg/dL (1.6-2.6); Osmolality,Calculated 273 (280-300); Potassium 3.1 mEq/L (3.5-5.1); Sodium 133 mEq/L (136-145); eGFR For African Americans > 60 (> 60); eGFR For Non-African Americans > 60 (> 60)
[2021-09-05 09:41] LABS: Platelet Count 32 K/mcL (140-400); Platelet Estimate Decreased (Normal)
[2021-09-05] MEDS: Haloperidol Oral Conc 10 MG/5 ML UDC PO SCH ×3 (09:58→20:24)
[2021-09-05] MEDS: *HR* Amiodarone 200 MG TABLET PO SCH (09:58)
[2021-09-05] MEDS: Folic Acid 1 MG TABLET PO SCH (09:58)
[2021-09-05] MEDS: Aspirin Enteric Coated 81 MG Tablet PO SCH (09:58)
[2021-09-05] MEDS: Sennosides 8.6 MG TABLET PO SCH (09:58)
[2021-09-05] MEDS: Morphine Sulfate Oral CONC 10 MG/0.5 ML ORAL.SYG SL SCH ×3 (09:59→20:25)
[2021-09-05] MEDS: Ertapenem 1,000 MG in 0.9 % Sodium Chloride Mini Bag 100 ML IVPB SCH (10:00)
[2021-09-05] MEDS: Fluticasone Propionate Nasal 50 MCG/SPRAY BOTTLE NS SCH (10:17)
[2021-09-05] MEDS ORDERED: Apixaban 5 MG TABLET GTUBE SCH (14:00)
[2021-09-05] MEDS: Scopolamine Patch 1.5 MG PATCH.TD72 TD SCH (14:55)
[2021-09-05] MEDS: Mirtazapine 15 MG TABLET PO SCH (20:24)
[2021-09-05] MEDS: Ondansetron 4 MG/2 ML VIAL IVP PRN (20:44)
[2021-09-06] MEDS: Pantoprazole 40 MG VIAL IVP SCH (05:22)
[2021-09-06 08:11] VITALS: BP 107/76; O2SAT 93
[2021-09-06] MEDS: Morphine Sulfate Oral CONC 10 MG/0.5 ML ORAL.SYG SL SCH ×2 (10:16→15:14)
[2021-09-06] MEDS: Ertapenem 1,000 MG in 0.9 % Sodium Chloride Mini Bag 100 ML IVPB SCH (10:19)
[2021-09-06] MEDS: Aspirin Enteric Coated 81 MG Tablet PO SCH (10:43)
[2021-09-06] MEDS: *HR* Amiodarone 200 MG TABLET PO SCH (10:43)
[2021-09-06] MEDS: Fluticasone Propionate Nasal 50 MCG/SPRAY BOTTLE NS SCH (10:44)
[2021-09-06] MEDS: Haloperidol Oral Conc 10 MG/5 ML UDC PO SCH ×2 (10:44→15:17)
[2021-09-06] MEDS: Sennosides 8.6 MG TABLET PO SCH (10:44)
[2021-09-06] MEDS: Folic Acid 1 MG TABLET PO SCH (10:44)
[2021-09-06 11:29] VITALS: PULSE 91; TEMP 97.5
[2021-09-06] MEDS ORDERED: Fosfomycin Tromethamine 3 GM Packet PO ONE ×2 (12:30→12:45)
[2021-09-06] MEDS ORDERED: Haloperidol Lactate 5 MG/ML VIAL IVP ONE (15:58)
== END 2021-09-06 18:34 | disposition still patient (30) | DRG 463 ==
LOC: 2ANU → SUATTDRO 11:15
PROVIDERS: ADMIT Internal Medicine; ATTEND Internal Medicine
PROC: ENDOEBX (2021-09-04 13:00)

== ENCOUNTER 2021-09-06 12:46 | Inpatient (IN) ==
[2021-09-06] MEDS ORDERED: Ondansetron 4 MG/2 ML VIAL IVP PRN (13:00)
[2021-09-06] MEDS ORDERED: Morphine Sulfate 2 MG/ML SYRINGE IVP PRN (13:06)
[2021-09-06] MEDS ORDERED: Saliva Stimulant 44.3ml BOTTLE PO PRN (13:08)
[2021-09-06] MEDS ORDERED: Haloperidol Lactate 5 MG/ML VIAL IVP PRN (16:01)
[2021-09-06] MEDS ORDERED: Scopolamine Patch 1.5 MG PATCH.TD72 TD SCH (19:00)
[2021-09-06] MEDS: Morphine Sulfate Oral CONC 10 MG/0.5 ML ORAL.SYG PO SCH (20:50)
[2021-09-06] MEDS: Sennosides/Docusate Sodium TABLET PO SCH (20:51)
[2021-09-06] MEDS: Haloperidol Oral Conc 10 MG/5 ML UDC PO SCH (20:51)
[2021-09-07] MEDS: Morphine Sulfate Oral CONC 10 MG/0.5 ML ORAL.SYG PO SCH ×2 (04:01→09:03)
[2021-09-07] MEDS: Pantoprazole 40 MG VIAL IVP SCH (09:03)
[2021-09-07] MEDS: Sennosides/Docusate Sodium TABLET PO SCH ×2 (09:03→20:00)
[2021-09-07] MEDS: Haloperidol Oral Conc 10 MG/5 ML UDC PO SCH ×3 (09:03→20:00)
[2021-09-07] MEDS: *HR* FentaNYL PATCH 25 MCG PATCH TD SCH (10:45)
[2021-09-07] MEDS: Morphine Sulfate Oral CONC 10 MG/0.5 ML ORAL.SYG PO PRN ×2 (18:58→23:03)
[2021-09-08] MEDS: Sennosides/Docusate Sodium TABLET PO SCH ×2 (11:45→21:17)
[2021-09-08] MEDS: Haloperidol Oral Conc 10 MG/5 ML UDC PO SCH ×3 (11:45→21:17)
[2021-09-08] MEDS: Pantoprazole 40 MG VIAL IVP SCH (12:34)
[2021-09-08] MEDS ORDERED: Scopolamine Patch 1.5 MG PATCH.TD72 TD SCH (15:00)
[2021-09-09] MEDS: Morphine Sulfate Oral CONC 10 MG/0.5 ML ORAL.SYG PO PRN ×3 (07:28→19:11)
[2021-09-09] MEDS: Pantoprazole 40 MG VIAL IVP SCH (10:31)
[2021-09-09] MEDS: Haloperidol Oral Conc 10 MG/5 ML UDC PO SCH ×3 (11:26→20:04)
[2021-09-09] MEDS: Sennosides/Docusate Sodium TABLET PO SCH ×2 (11:26→20:04)
[2021-09-10] MEDS: Morphine Sulfate Oral CONC 10 MG/0.5 ML ORAL.SYG PO PRN ×3 (07:54→23:41)
[2021-09-10] MEDS: Sennosides/Docusate Sodium TABLET PO SCH ×2 (09:15→19:53)
[2021-09-10] MEDS: Haloperidol Oral Conc 10 MG/5 ML UDC PO SCH ×3 (09:20→19:53)
[2021-09-10] MEDS: *HR* FentaNYL PATCH 25 MCG PATCH TD SCH (18:55)
[2021-09-10] MEDS: Pantoprazole 40 MG VIAL IVP SCH (19:09)
[2021-09-10 21:14] VITALS: BP 84/51; PULSE 104; TEMP 98; O2SAT 38
== END 2021-09-11 01:15 | disposition expired | DRG 951 ==
LOC: 2ANU 18:11
PROVIDERS: ADMIT Internal Medicine Hospice and Palliative Medicine; ATTEND Internal Medicine Hospice and Palliative Medicine